=== PATIENT | male | born 1970 | race Caucasian/White ===

== ENCOUNTER 2019-07-13 16:27 | Emergency (ER) | payer SELFPAY ==
--- NOTE | 2019-07-13 16:39 | ER Document Report ---
ED Medical Screen (RME) - General Stated Complaint: LEG PAIN Time Seen by Provider: 07/13/19 16:32 Mode of Arrival: Ambulatory Information source: Patient Notes: Patient is a 49-year-old male presenting to the emergency department with chief complaint of swelling to his left lower extremity. Patient reports that about 6 weeks ago he was admitted to the hospital in [place] for bilateral leg cellulitis. He states that he came to [place] to live with his sister once he was discharged, his sister is concerned he may have a blood clot in his leg. 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 He denies history of diabetes but states he used to be on metformin. Patient is a poor historian Swelling noted to bilateral legs, unable to fully evaluate due to position in triage. I have greeted and performed a rapid initial assessment of this patient. A comprehensive ED assessment and evaluation of the patient, analysis of test results and completion of the medical decision making process will be conducted by additional ED providers. I have specifically instructed the patient or family members with the patient to immediately return to any nursing staff should anything change in the patient's condition or with their chief complaint. - Related Data Allergies/Adverse Reactions: cinnamon Allergy (Verified 07/13/19 16:32)
[2019-07-13 17:10] LABS: ABSOLUTE BASOPHILS # (AUTO) 0.1 10^3/uL (0.0-0.2); ABSOLUTE EOSINOPHILS # (AUTO) 0.4 10^3/uL (0.0-0.6); ABSOLUTE LYMPHOCYTES (AUTO) 2.9 10^3/uL (0.5-4.7); ABSOLUTE MONOCYTES (AUTO) 0.8 10^3/uL (0.1-1.4); ABSOLUTE NEUT (AUTO) 5.8 10^3/uL (1.7-8.2); BASOPHILS % (AUTO) 0.6 % (0-2); EOSINOPHILS % (AUTO) 4.5 % (0-6); HEMATOCRIT 52.4 % (37.9-51.0); HEMOGLOBIN 17.5 g/dL (13.5-17.0); LYMPHOCYTES % (AUTO) 29.2 % (13-45); MEAN CORPUSCULAR HEMOGLOBIN 29.7 pg (27.0-33.4); MEAN CORPUSCULAR HGB CONC 33.3 g/dL (32.0-36.0); MEAN CORPUSCULAR VOLUME 89 fl (80-97); MONOCYTES % (AUTO) 7.8 % (3-13); PLATELET COUNT 189 10^3/uL (150-450); RED BLOOD COUNT 5.88 10^6/uL (4.35-5.55); RED CELL DISTRIBUTION WIDTH 15.4 % (11.5-14.0); SEGMENTED NEUTROPHILS % (AUTO) 57.9 % (42-78); TOTAL CELLS COUNTED % (AUTO) 100 %; WHITE BLOOD COUNT 10.1 10^3/uL (4.0-10.5)
[2019-07-13] MEDS ORDERED: METOCLOPRAMIDE HCL INJ/PF 10 MG/2 ML SDV IV ONE (17:13)
[2019-07-13 17:22] LABS: ALBUMIN 3.8 g/dL (3.5-5.0); ALKALINE PHOSPHATASE 120 U/L (38-126); ANION GAP 5 (5-19); ASPARTATE AMINO TRANSFERASE 24 U/L (17-59); BILIRUBIN,DIRECT 0.3 mg/dL (0.0-0.4); BILIRUBIN,TOTAL 0.4 mg/dL (0.2-1.3); BLOOD UREA NITROGEN 14 mg/dL (7-20); CALCIUM 9.1 mg/dL (8.4-10.2); CARBON DIOXIDE 38 mmol/L (22-30); CHLORIDE 95 mmol/L (98-107); GLUCOSE 153 mg/dL (75-110); POTASSIUM 4.8 mmol/L (3.6-5.0); TOTAL PROTEIN 7.7 g/dL (6.3-8.2)
--- NOTE | 2019-07-13 17:33 | ER Document Report ---
ED Extremity Problem, Lower - General Chief Complaint: Leg Swelling Stated Complaint: LEG PAIN Time Seen by Provider: 07/13/19 16:32 Primary Care Provider: [facility] [Provider Group] - Follow up as needed [facility] [Provider Group] - Follow up as needed AVERY MAZARIEGOS MD [NO LOCAL MD] - Follow up in 3-5 days Mode of Arrival: Ambulatory Notes: Patient is a 49-year-old male who presents to the emergency department with a chief complaint of bilateral lower extremity swelling. Patient states that his sister was worried about him and sent him to the emergency department to get evaluated. Patient denies any pain to his bilateral calves. Patient states that he does have a little bit of pain noted to his left lower anterior ankle due to his MARÍA hose cutting into him. Patient reports a history of DVTs in the past. He was on Coumadin, but ran out of the medication. He adamantly denies any calf or leg pain. He states that, "my legs are actually better than when I was admitted for cellulitis in [place]." Patient states that he did have wounds to bilateral lower extremities, but does not have them anymore. Patient does have a history of psoriasis and hypertension. He has not been taking hypertensive medication for a long time. Patient does not have a primary care provider here in [place]. - Related Data Allergies/Adverse Reactions: cinnamon Allergy (Verified 07/13/19 16:32) Home Medications: Does not take medications he is prescribed Past Medical History - General Information source: Patient - Social History Smoking Status: Current Every Day Smoker Family History: Reviewed & Not Pertinent Patient has suicidal ideation: No Patient has homicidal ideation: No Review of Systems - Review of Systems Notes: REVIEW OF SYSTEMS: CONSTITUTIONAL : Denies recent illness. Denies recent unintentional weight loss. Denies fever, chills, or sweats. EENT: Denies eye, ear, throat, or mouth pain, discharge, or symptoms. Denies nasal or sinus congestion. CARDIOVASCULAR: Denies chest pain. RESPIRATORY: Denies shortness of breath, cough, congestion, difficulty breathing, or wheezing. GASTROINTESTINAL: Denies nausea, vomiting, and diarrhea. Denies abdominal pain. Denies constipation. GENITOURINARY: Denies difficulty urinating, burning, blood in urine, urgency or frequency. MUSCULOSKELETAL: Denies neck and back pain. See HPI. SKIN: Denies itchiness, or lesions. See HPI. HEMATOLOGIC : Denies easy bruising or bleeding. LYMPHATIC: Denies swollen, painful, enlarged glands. NEUROLOGICAL: Denies no numbness or tingling denies weakness. Denies headache. Denies altered mental status. Denies alteration in speech. PSYCHIATRIC: Denies stress, anxiety, alteration in sleep patterns, or depression. All other systems reviewed and negative. Physical Exam - Vital signs Vitals: Temp Pulse Resp BP Pulse Ox 97.5 F 83 22 H 155/104 H 96 07/13/19 16:32 07/13/19 16:32 07/13/19 16:32 07/13/19 16:32 07/13/19 16:32 - Notes Notes: PHYSICAL EXAMINATION: GENERAL: Appears well, healthy, well-nourished, no acute distress. HEAD: Normocephalic, atraumatic. EYES: PERRL, conjunctiva normal, all extraocular movements intact, sclera nonicteric ENT: Dry mucous membranes. NECK: Supple, no noticeable swelling, redness, rash. Normal range of motion. LUNGS: Equal breath sounds bilaterally and clear to auscultation. No wheezes rales or rhonchi. CARDIOVASCULAR: S1-S2, regular rate, regular rhythm. Radial pulses 2+, normal. ABDOMEN: Normoactive bowel sounds. Soft, nontender, no guarding, no rebound tenderness, and no masses palpated. EXTREMITIES: Normal strength and range of motion, no pitting or edema. No cyanosis. NEUROLOGICAL: Moves all extremities upon command. Strength 5/5 in all extremities. PSYCH: Normal mood, normal affect. SKIN: Warm, very dry. No rash, lesions, ulcerations noted. Normal skin turgor. Course - Re-evaluation Re-evalutation: 07/13/19 The patient adamantly denies any pain to his calves. Patient states he only has pain in the area where his MARÍA hose were cutting into his ankles on the left side. He points to the anterior aspect of his left leg. Patient has chronic venous stasis. Patient states that his legs actually look better than they did when he was admitted for cellulitis. His skin does not appear to have cellulitis. His legs are very dry. I discussed with him and his sister, who is his primary caregiver (spoke with her over the phone) to make sure that he uses Cetaphil lotion to help with his very dry skin and his psoriasis. The patient states that he has a special cream that he is at home, but states that he does not know what kind of cream it is. I advised him to continue to take that cream. Patient also has a very long toenails. He will be referred to podiatry to have them trimmed, as they are about 3 cm long each. Blood pressure has improved to 140/86. I suspect he was possibly anxious when he came in with initial blood pressure of 155/114. There is no leukocytosis noted. His hemoglobin is elevated, along with his hematocrit. I advised him to make sure he stays well-hydrated. He denies any nausea, vomiting, or diarrhea. Hemoglobin A1c is 7.1. His CO2 is 38. Patient states that he is an everyday smoker. Advised him to quit smoking. He is in agreement with these plans. He denies any shortness of breath or difficulty breathing. Follow-up precautions were given. Verbal discharge instructions were given to the patient. They verbalized understanding. They are stable for discharge. - Vital Signs Vital signs: Temp Pulse Resp BP Pulse Ox 97.8 F 68 18 140/86 H 96 07/13/19 18:12 07/13/19 18:12 07/13/19 18:12 07/13/19 18:12 07/13/19 18:12 - Laboratory Result Diagrams: 07/13/19 16:48 07/13/19 16:48 Laboratory results interpreted by me: 07/13/19 07/13/19 07/13/19 16:48 16:48 16:48 RBC 5.88 H Hgb 17.5 H Hct 52.4 H RDW 15.4 H Chloride 95 L Carbon Dioxide 38 H Glucose 153 H Hemoglobin A1c % 7.1 H Discharge - Discharge Clinical Impression: Swelling of lower extremity Condition: Stable Disposition: HOME, SELF-CARE Additional Instructions: You were seen today in the emergency department for leg swelling. Please continue wearing your compression stockings provided to you here in the emergency department. Follow-up with podiatry for your toenails. Please also apply for Medicaid and establish a primary care provider. If you do not qualify for Medicaid, please follow-up with 1 of the clinics below. Prescriptions: Vit E Acet/Gly/Dimeth/Water [Cetaphil Moisturizing Lotion] 473 ml TP BID #1 lotion Referrals: AVERY MAZARIEGOS MD [NO LOCAL MD] - Follow up in 3-5 days [facility] [Provider Group] - Follow up as needed [facility] [Provider Group] - Follow up as needed
[2019-07-13 18:14] VITALS: BP 140/86
== END 2019-07-13 18:14 | disposition home or self-care (01) ==
LOC: ER 16:27
DX: I87.8 Other specified disorders of veins (principal); M79.89 Other specified soft tissue disorders; L40.9 Psoriasis, unspecified; M25.572 Pain in left ankle and joints of left foot; I10 Essential (primary) hypertension; F17.200 Nicotine dependence, unspecified, uncomplicated; Z86.718 Personal history of other venous thrombosis and embolism; Z91.018 Allergy to other foods
CPT/HCPCS: 36415; 80053; 83036; 85025; 99284

== ENCOUNTER 2020-04-21 21:36 | Inpatient (IN) | payer SELFPAY ==
--- NOTE | 2020-04-21 22:09 | EKG REPORT ---
SEVERITY:- ABNORMAL ECG - SINUS RHYTHM PROBABLE LEFT ATRIAL ABNORMALITY LEFT POSTERIOR FASCICULAR BLOCK BORDERLINE T ABNORMALITIES, ANTERIOR LEADS : Confirmed by: Sol Lowe 21-Apr-2020 22:08:46
[2020-04-21 22:27] LABS: ABSOLUTE EOSINOPHILS # (AUTO) 0.2 10^3/uL (0.0-0.6); ABSOLUTE MONOCYTES (AUTO) 0.8 10^3/uL (0.1-1.4); ABSOLUTE NEUT (AUTO) 6.4 10^3/uL (1.7-8.2); BASOPHILS % (AUTO) 0.5 % (0-2); EOSINOPHILS % (AUTO) 2.2 % (0-6); HEMATOCRIT 54.2 % (37.9-51.0); HEMOGLOBIN 17.1 g/dL (13.5-17.0); LYMPHOCYTES % (AUTO) 20.8 % (13-45); MEAN CORPUSCULAR HEMOGLOBIN 27.5 pg (27.0-33.4); MEAN CORPUSCULAR HGB CONC 31.6 g/dL (32.0-36.0); MEAN CORPUSCULAR VOLUME 87 fl (80-97); MONOCYTES % (AUTO) 8.6 % (3-13); PLATELET COUNT 189 10^3/uL (150-450); RED BLOOD COUNT 6.21 10^6/uL (4.35-5.55); RED CELL DISTRIBUTION WIDTH 16.3 % (11.5-14.0); SEGMENTED NEUTROPHILS % (AUTO) 67.9 % (42-78); TOTAL CELLS COUNTED % (AUTO) 100 %; WHITE BLOOD COUNT 9.4 10^3/uL (4.0-10.5)
[2020-04-21 22:42] LABS: ALBUMIN 3.6 g/dL (3.5-5.0); ALKALINE PHOSPHATASE 130 U/L (38-126); ASPARTATE AMINO TRANSFERASE 30 U/L (17-59); BILIRUBIN,DIRECT 0.6 mg/dL (0.0-0.4); BILIRUBIN,TOTAL 1.1 mg/dL (0.2-1.3); BLOOD UREA NITROGEN 16 mg/dL (7-20); CALCIUM 8.8 mg/dL (8.4-10.2); CHLORIDE 88 mmol/L (98-107); CREATINE KINASE 50 U/L (55-170); GLUCOSE 92 mg/dL (75-110); POTASSIUM 4.4 mmol/L (3.6-5.0); TOTAL PROTEIN 7.2 g/dL (6.3-8.2)
[2020-04-21 22:51] LABS: CARBON DIOXIDE 42 mmol/L (22-30)
[2020-04-21 22:54] LABS: CREATINE KINASE MB 2.68 ng/mL (<4.55); NT PRO BNP 2990 pg/mL (<125)
[2020-04-21 22:57] LABS: ANION GAP 3 (5-19)
[2020-04-21 23:02] LABS: TROPONIN I < 0.012 ng/mL
--- NOTE | 2020-04-21 23:44 | RADIOLOGY REPORT (SQ) ---
CLINICAL HISTORY: shortness of breath COMPARISON: None. 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 Lungs are clear without consolidation, atelectasis, mass or edema. There is no pleural effusion. There is no pneumothorax. There are no acute osseous findings. IMPRESSION: Clear lungs.
--- NOTE | 2020-04-22 00:25 | ER Document Report ---
ED General - General Chief Complaint: Shortness Of Breath Stated Complaint: SWOLLEN LEGS, BURNING Time Seen by Provider: 04/22/20 00:23 - HPI Notes: 50-year-old male presents with leg swelling. Patient states that for the past 2 weeks he has had massive swelling in his lower legs and shortness of breath when he tries to do any sort of ambulation or activity. He states that he has had leg swelling before but he is unsure of the diagnosis. He states that he was actually fired from his job because he was unable to perform the job duties, he worked at a [employer]. He denies previous history of CHF. He has never been on a diuretic. He reports he has a history of high blood pressure, diabetes and MARYCRUZ, however he does not see doctors not currently on any medications. Is been sometime since he last saw a doctor. He denies chest pain. He denies any known Covid exposure stating that he does not interact with people. - Related Data Allergies/Adverse Reactions: cinnamon Allergy (Verified 07/13/19 16:32) Past Medical History - General Information source: Patient - Social History Smoking Status: Current Every Day Smoker Family History: Reviewed & Not Pertinent Patient has homicidal ideation: No Review of Systems - Review of Systems Constitutional: No symptoms reported EENT: No symptoms reported Cardiovascular: denies: Chest pain Respiratory: Short of breath Gastrointestinal: denies: Abdominal pain Genitourinary: No symptoms reported Male Genitourinary: No symptoms reported Musculoskeletal: Leg swelling Skin: No symptoms reported Hematologic/Lymphatic: No symptoms reported Physical Exam - Vital signs Vitals: Temp Pulse Resp BP Pulse Ox 97.4 F 94 20 149/101 H 85 L 04/21/20 21:42 04/21/20 21:42 04/21/20 21:42 04/21/20 21:42 04/21/20 21:42 - General General appearance: Alert In distress: None - HEENT Head: Normocephalic, Atraumatic Extraocular movements intact: Yes Pupils: PERRL - Respiratory Breath sounds: Other - Breath sounds are grossly symmetric, there is marked limitation due to his body habitus. He is able to speak in full sentences and has no increased work of breathing. - Cardiovascular Rhythm: Regular Heart sounds: Normal auscultation Normal capillary refill: Yes - Abdominal Inspection: Morbidly Obese Tenderness: Nontender - Genitourinary Notes: Superficial yeast infection present to pannus/suprapubic area - Extremities Notes: Lower extremities are markedly enlarged with pitting edema and thickened skin, there is some areas of crusting. Do not appreciate any large wounds. - Neurological Neuro grossly intact: Yes Cognition: Normal Orientation: AAOx4 - Psychological Associated symptoms: Normal affect - Skin Skin Temperature: Warm Course - Re-evaluation Re-evalutation: 50-year-old male with untreated diabetes, hypertension and MARYCRUZ here for leg swelling and MOHR x2 weeks. Patient was reportedly in the lobby for 3 hours and found to be 85% on room air, supplemental oxygen was applied which immediately improved his saturations. He is alert and nontoxic-appearing, able to speak in full sentences though full pulmonary exam is limited due to his body habitus. His legs are markedly edematous. He had a laboratory evaluation done prior to my evaluation. No leukocytosis. Increased hemoglobin/hematocrit, likely reflective of his MARYCRUZ status. Electrolytes okay. Elevated bicarb suggestive of chronic CO2 retention. Creatinine within normal limits. Troponin negative. Elevation of BNP, new per our records. Chest x-ray without consolidation. Patient was started on IV Lasix to begin the diuresis process, suspect he has new onset CHF, he is definitely a candidate for diastolic CHF based on his body habitus and comorbidities. Also ordered topical nystatin for his candidal infection of pannus/genital area. Patient was admitted to the hospital service for further evaluation and management, CTA chest was requested prior to being transported to the floor, ordered. - Vital Signs Vital signs: Temp Pulse Resp BP Pulse Ox 97.8 F 94 19 147/82 H 95 04/22/20 01:00 04/21/20 21:42 04/22/20 01:00 04/22/20 01:00 04/22/20 01:00 - Laboratory Results Result Diagrams: 04/21/20 22:10 04/21/20 22:10 Laboratory Results Interpreted: 04/21/20 04/21/20 04/21/20 22:10 22:10 22:10 RBC 6.21 H Hgb 17.1 H Hct 54.2 H MCHC 31.6 L RDW 16.3 H Sodium 132.9 L Chloride 88 L Carbon Dioxide 42 H* Anion Gap 3 L Hemoglobin A1c % Direct Bilirubin 0.6 H Alkaline Phosphatase 130 H Creatine Kinase 50 L NT-Pro-B Natriuret Pep 2990 H 04/21/20 22:10 RBC Hgb Hct MCHC RDW Sodium Chloride Carbon Dioxide Anion Gap Hemoglobin A1c % 6.9 H Direct Bilirubin Alkaline Phosphatase Creatine Kinase NT-Pro-B Natriuret Pep Critical Laboratory Results Reviewed: No Critical Results - Radiology Results Critical Radiology Results Reviewed: No Critical Results - EKG Interpretation by Me Additional EKG results interpreted by me: EKG is interpreted by me. Sinus rhythm, rate 91. Narrow QRS, QTC within normal limits. Nonspecific T wave abnormalities. No STEMI. Discharge - Discharge Clinical Impression: New onset of congestive heart failure, Shonda infection, Morbid obesity Disposition: ADMITTED OBSERVATION Admitting Provider: Lucinda (Hospitalist) Unit Admitted: Telemetry
[2020-04-22] MEDS ORDERED: FUROSEMIDE INJ/PF 20 MG/2 ML SDV IV ONE (00:34)
[2020-04-22] MEDS ORDERED: NYSTATIN TOPICAL POWDER 15 GM TP ONE (00:35)
[2020-04-22 02:04] LABS: APPEARANCE,URINE SLIGHTLY-CLOUDY; BILIRUBIN,URINE NEGATIVE (NEGATIVE); COLOR,URINE STRAW; GLUCOSE, URINE NEGATIVE (NEGATIVE); KETONES,URINE NEGATIVE (NEGATIVE); LEUKOCYTE ESTERASE,URINE TRACE (NEGATIVE); NITRITE,URINE NEGATIVE (NEGATIVE); PROTEIN,URINE NEGATIVE (NEGATIVE); URINE SPECIFIC GRAVITY 1.004; UROBILINOGEN,URINE NEGATIVE mg/dL (<2.0)
[2020-04-22] MEDS ORDERED: ONDANSETRON 4 MG TAB.RAPDIS PO PRN (02:20)
[2020-04-22] MEDS ORDERED: ONDANSETRON HCL INJ/PF 4 MG/2 ML SDV IV PRN (02:20)
[2020-04-22] MEDS ORDERED: LEVALBUTEROL HCL NEB 1.25 MG/3 ML AMPUL NEB PRN (02:20)
--- NOTE | 2020-04-22 02:48 | PDOC H&P ---
History of Present Illness Admission Date/PCP: 04/22/20 01:10 History of Present Illness: MOSES DAILY is a 50 year old male past medical history significant for HTN, IBS with diarrhea, untreated MARYCRUZ, T2DM, right-sided CVA, tobacco abuse and dependency, lower extremity DVT who presents to the ED with a 2-week history of progressive shortness of breath/MOHR/bilateral lower extremity edema which he states is significantly worse than it has been in the past. In fact, patient states it has been so severe that he was fired from his job at a [employer] because he was essentially unable to ambulate. Patient states he has had a right-sided stroke in the past but denies any longstanding deficits from this. He also states he has had a DVT in the past and his physician had put him on w arfarin though he is extremely unclear about how or why he was taken off of the warfarin. Labs in ED showed elevated BNP up to 2990, CO2 up to 42, troponin negative. I discussed with ED that we should order a CTPA to rule out PE given the patient's history of inconsistent anticoagulation and DVT. We also get an echocardiogram to rule out new onset CHF. IV Lasix ordered for diuresis. Past Medical History Cardiac Medical History: Reports: Hypertension Pulmonary Medical History: Reports: Sleep Apnea Neurological Medical History: Reports: Ischemic CVA Endocrine Medical History: Reports: Diabetes Mellitus Type 2 GI Medical History: Reports: Other - Irritable bowel disease diarrhea Psychiatric Medical History: Reports: Tobacco Dependency Past Surgical History Past Surgical History: Reports: None Social History Information Source: Patient, Emergency Med Personnel Lives with: Alone Smoking Status: Current Every Day Smoker Frequency of Alcohol Use: None Hx Recreational Drug Use: No Hx Prescription Drug Abuse: No - Advance Directive Resuscitation Status: Full Code Surrogate healthcare decision maker:: Admitting diagnosis: Acute hypoxemic respiratory failure All aspects of code status discussed with patient/POA including cardioversion, chest compressions, and intubation and the patient/POA indicated they wish to be full code MPOA is designated as: SisterRebecca Time spent: Greater than 16 minutes Family History Family History: Reviewed & Not Pertinent, CAD Parental Family History Reviewed: Yes Children Family History Reviewed: Yes Sibling(s) Family History Reviewed.: Yes Medication/Allergy Home Medications: Vit E Acet/Gly/Dimeth/Water [Cetaphil Moisturizing Lotion] 473 ml TP BID #1 lotion 07/13/19 Allergies/Adverse Reactions: cinnamon Allergy (Verified 07/13/19 16:32) Review of Systems All systems: reviewed and no additional remarkable complaints except as stated - Per HPI otherwise negative Physical Exam Vital Signs: Temp Pulse Resp BP Pulse Ox 97.8 F 94 19 147/82 H 95 04/22/20 01:00 04/21/20 21:42 04/22/20 01:00 04/22/20 01:00 04/22/20 01:00 Intake & Output 04/20/20 04/21/20 04/22/20 06:59 06:59 06:59 Weight 185.7 kg Exam: General appearance: PRESENT: no acute distress, chronically ill-appearing morbidly obese white male with BMI 60.5 Head exam: PRESENT: atraumatic, normocephalic Eye exam: PRESENT: conjunctiva pink. ABSENT: scleral icterus Mouth exam: PRESENT: moist Respiratory exam: PRESENT: Scant wheezing in upper lung earl, severely limited exam due to body habitus ABSENT: rales, rhonchi Cardiovascular exam: PRESENT: RRR. ABSENT: diastolic murmur, rubs, systolic murmur GI/Abdominal exam: PRESENT: normal bowel sounds, soft. ABSENT: distended, guarding, mass, organolmegaly, rebound, tenderness Neurological exam: PRESENT: alert, awake, oriented to person, oriented to place, oriented to time, oriented to situation Psychiatric exam: PRESENT: appropriate affect, normal mood Skin exam: PRESENT: dry, intact, warm; severe +3 BLE pitting edema with chronic stasis dermatitis Results Laboratory Results: 04/21/20 22:10 04/21/20 22:10 04/21/20 04/21/20 04/22/20 22:10 22:10 01:45 WBC 9.4 RBC 6.21 H Hgb 17.1 H Hct 54.2 H MCV 87 MCH 27.5 MCHC 31.6 L RDW 16.3 H Plt Count 189 Seg Neutrophils % 67.9 Sodium 132.9 L Potassium 4.4 Chloride 88 L Carbon Dioxide 42 H* Anion Gap 3 L BUN 16 Creatinine 1.14 Est GFR ( Amer) > 60 Glucose 92 Calcium 8.8 Total Bilirubin 1.1 AST 30 Alkaline Phosphatase 130 H Total Protein 7.2 Albumin 3.6 Urine Color STRAW Urine Appearance SLIGHTLY-CLOUDY Urine pH 5.0 Ur Specific [place] 1.004 Urine Protein NEGATIVE Urine Glucose (UA) NEGATIVE Urine Ketones NEGATIVE Urine Blood MODERATE H Urine Nitrite NEGATIVE Ur Leukocyte Esterase TRACE H Urine WBC (Auto) 1 Urine RBC (Auto) 0 04/21/20 04/21/20 22:10 22:10 Creatine Kinase 50 L CK-MB (CK-2) 2.68 Troponin I < 0.012 NT-Pro-B Natriuret Pep 2990 H Impressions: Chest X-Ray 04/21/20 22:18 IMPRESSION: Clear lungs. Assessment and Plan - Diagnosis (1) New onset of congestive heart failure Is this a current diagnosis for this admission?: Yes Plan: -Suspected acute diastolic chf exacerbation -diuresis with IV Lasix -fluid restriction -I/O monitoring -Cardiology outpt FU needed -TTE ordered -started appropriate goal directed cardiac meds -AICD consideration if EF falls to 35% or below Rule out PE as cause of acute heart failure due to history of DVTs not on anticoagulation CTPA pending PVL BLE pending (2) Acute hypoxemic respiratory failure Is this a current diagnosis for this admission?: Yes Plan: Due to CHF as above Submental oxygen to maintain saturation 92% or above Suspect underlying OHS, require cautious use of supplemental oxygen as this can drive CO2 higher and cause somnolence and confusion Diuresis (3) Chronic venous stasis dermatitis of both lower extremities Is this a current diagnosis for this admission?: Yes Plan: No evidence of infection, only moderate erythema bilateral legs, denies fevers or other systemic symptoms of infection Nystatin powder for candidal skin infection (4) History of DVT (deep vein thrombosis) Is this a current diagnosis for this admission?: Yes Plan: Was previously on warfarin, unclear why patient was taken off of this or if he stopped it himself CTPA in PVL lower extremities as above (5) T2DM (type 2 diabetes mellitus) Qualifiers: Diabetes mellitus group home insulin use: without predatory animal exterminator use Diabetes mellitus complication status: with hyperglycemia Qualified Code(s): E11.65 - Type 2 diabetes mellitus with hyperglycemia Is this a current diagnosis for this admission?: Yes Plan: T2DM -accucheks, sliding scale insulin -long acting insulin indicated for HgA1C of 10 or greater -diet counseling -outpt FU with PCP (6) HTN (hypertension) Qualifiers: Hypertension type: essential hypertension Qualified Code(s): I10 - Essenti al (primary) hypertension Is this a current diagnosis for this admission?: Yes Plan: Previously on oral medications but cannot remember the use, states he cannot afford his medications Lasix Add antihypertensives as needed to reach goal blood pressure (7) Morbid obesity with BMI of 60.0-69.9, adult Is this a current diagnosis for this admission?: Yes Plan: Counseled on weight loss (8) History of CVA (cerebrovascular accident) Is this a current diagnosis for this admission?: Yes (9) IBS (irritable bowel syndrome) Qualifiers: Irritable bowel syndrome type: with diarrhea Qualified Code(s): K58.0 - Irritable bowel syndrome with diarrhea Is this a current diagnosis for this admission?: Yes Plan: Not currently having diarrhea (10) Cutaneous candidiasis Is this a current diagnosis for this admission?: Yes Plan: Nystatin powder (11) Tobacco dependence with current use Is this a current diagnosis for this admission?: Yes Plan: Counseled on quitting - Time Time Spent with patient: 35 or more minutes Smoking Cessation Education: 3 to 10 minutes Medications reviewed and adjusted accordingly: Yes Anticipated Discharge Disposition: Home, Self Care Anticipated Discharge Timeframe: within 48 hours - Inpatient Certification Based on my medical assessment, after consideration of the patient's comorbidities, presenting symptoms, or acuity I expect that the services needed warrant INPATIENT care.: Yes I certify that my determination is in accordance with my understanding of Medicare's requirements for reasonable and necessary INPATIENT services [42 CFR 412.3e].: Yes Medical Necessity: Significant Comorbidiites Make Outpatient Treatment Too Risky, Need Close Monitoring Due to Risk of Patient Decompensation, Need For Co ntinuous Telemetry Monitoring, Need for Nebulizer Therapy and Monitoring of Response, Risk of Complication if Not Cared For in Hospital, Risk of Diagnosis Which Will Require Inpatient Eval/Care/Monitoring
--- NOTE | 2020-04-22 04:44 | RADIOLOGY REPORT (SQ) ---
EXAM DESCRIPTION: CT CHEST ANGIOGRAPHY WITH IV CONTRAST COMPLETED DATE/TME: 04/22/2020 03:38 CLINICAL HISTORY: 50 years, Male, SOB, hypoxia, eval PE COMPARISON: None. TECHNIQUE: [id number] Images stored on PACS. All CT scanners at this facility use dose modulation, iterative reconstruction, and/or weight based dosing when appropriate to reduce radiation dose to as low as reasonably achievable (ALARA). Axial CTA images of the chest with coronal and sagittal MIPS [facility]: Dose Right [facility]: CareDose [facility]: Dose Right [facility]: Teradose 4D [facility]: [employer] LIMITATIONS: None. FINDINGS: Contrast bolus is somewhat suboptimal however no discrete filling defect to suggest pulmonary embolus. Negative for thoracic aortic aneurysm or dissection. Heart size is normal. No mediastinal or hilar adenopathy. Limited evaluation of the upper abdomen shows a small volume of ascites. Fatty infiltrative change to the liver. Small right pleural effusion with adjacent consolidative change. No pneumothorax. IMPRESSION: Negative for pulmonary embolus. Small right pleural effusion. Adjacent consolidation. Ascites in the upper abdomen. TECHNICAL DOCUMENTATION: Quality ID # 436: Final reports with documentation of one or more dose reduction techniques (e.g., Automated exposure control, adjustment of the mA and/or kV according to patient size, use of iterative reconstruction technique) copyright 2011 [employer]- All Rights Reserved
[2020-04-22 06:08] LABS: ABSOLUTE EOSINOPHILS # (AUTO) 0.3 10^3/uL (0.0-0.6); ABSOLUTE LYMPHOCYTES (AUTO) 1.8 10^3/uL (0.5-4.7); ABSOLUTE MONOCYTES (AUTO) 0.9 10^3/uL (0.1-1.4); ABSOLUTE NEUT (AUTO) 6.1 10^3/uL (1.7-8.2); BASOPHILS % (AUTO) 0.5 % (0-2); EOSINOPHILS % (AUTO) 2.8 % (0-6); HEMATOCRIT 50.8 % (37.9-51.0); HEMOGLOBIN 16.1 g/dL (13.5-17.0); LYMPHOCYTES % (AUTO) 19.4 % (13-45); MEAN CORPUSCULAR HEMOGLOBIN 27.8 pg (27.0-33.4); MEAN CORPUSCULAR HGB CONC 31.7 g/dL (32.0-36.0); MEAN CORPUSCULAR VOLUME 88 fl (80-97); MONOCYTES % (AUTO) 9.9 % (3-13); PLATELET COUNT 175 10^3/uL (150-450); RED BLOOD COUNT 5.79 10^6/uL (4.35-5.55); RED CELL DISTRIBUTION WIDTH 16.3 % (11.5-14.0); SEGMENTED NEUTROPHILS % (AUTO) 67.4 % (42-78); TOTAL CELLS COUNTED % (AUTO) 100 %; WHITE BLOOD COUNT 9.1 10^3/uL (4.0-10.5)
[2020-04-22 06:37] LABS: BLOOD UREA NITROGEN 15 mg/dL (7-20); CALCIUM 8.4 mg/dL (8.4-10.2); GLUCOSE 108 mg/dL (75-110); PHOSPHORUS 4.6 mg/dL (2.5-4.5); POTASSIUM 5.1 mmol/L (3.6-5.0)
[2020-04-22 06:42] LABS: ANION GAP 5 (5-19); CARBON DIOXIDE 38 mmol/L (22-30); CHLORIDE 92 mmol/L (98-107)
[2020-04-22] MEDS: INSULIN LISPRO 100 UNIT/ML 3 ML VIAL SUBCUT SCH ×4 (07:22→22:19)
[2020-04-22] MEDS: FUROSEMIDE INJ/PF 40 MG/4 ML SDV IV SCH ×2 (09:26→22:19)
[2020-04-22] MEDS: ENOXAPARIN SODIUM INJ 40 MG/0.4 ML DISP.SYRIN SUBCUT SCH (09:28)
[2020-04-22 11:54] LABS: ARTERIAL BLOOD BASE EXCESS 10.7 mmol/L; ARTERIAL BLOOD H2CO3 2.27 mmol/L (1.05-1.35); ARTERIAL BLOOD HCO3 40.6 mmol/L (20-24); ARTERIAL BLOOD O2 SATURATION 91.6 % (94-98); ARTERIAL BLOOD PH 7.35 (7.35-7.45); ARTERIAL BLOOD PO2 67.1 mmHg (80-100); ARTERIAL BLOOD TOTAL CO2 42.9 mmol/L (23-27)
[2020-04-22 12:08] LABS: URINE AMPHETAMINES SCREEN NEGATIVE; URINE BARBITURATES SCREEN NEGATIVE; URINE BENZODIAZEPINES SCREEN NEGATIVE; URINE COCAINE SCREEN NEGATIVE; URINE MARIJUANA (THC) SCREEN NEGATIVE; URINE METHADONE SCREEN NEGATIVE; URINE PHENCYCLIDINE SCREEN NEGATIVE
[2020-04-22 12:14] LABS: ARTERIAL BLOOD FIO2 10L
[2020-04-22 12:17] LABS: ARTERIAL BLOOD PCO2 75.4 mmHg (35-45)
[2020-04-22] MEDS ORDERED: ALBUTEROL SULFATE 0.083% NEB 2.5 MG/3 ML AMPUL NEB ONE (12:23)
[2020-04-22] MEDS: NYSTATIN TOPICAL POWDER 15 GM TP SCH ×2 (16:23→18:15)
--- NOTE | 2020-04-22 19:27 | Progress Note ---
Provider Note Provider Note: Patient seen on morning rounds. BiPAP on. Nursing expresses concerns that patient drowsy. ABG ordered: pCO2 75.4, pO2 67.1. HCO3 40.6, O2 sat 91.6. On chemistries CO2 elevated at 42. Notable BMI 59.7. Without underlying COPD or asthma. CXR with clear lungs. CTPA witohut pulmonary embolism though notable for small right pleural effusion. With small amount of ascites noted in abdomen. On exam noted wheezing upper lung earl, though exam is limited due to habitus. There is 3+ bilateral pitting edema with chornic stasis dermatitis. Echo as per Dr. Valle, who was unable to leave report due to computer difficulties, Normal EF, dilated RV with moderatly decreased systolic function. No significant valvular disease. Continue with IV diuretics, and order strict I&Os. Instructed not to over oxygenate pt as this may cause increased CO2 and cause somnolence and confusion. Pt will need outpatient cardiology f/u. Will need outpatient sleep study/pulm. Outpatient wound care f/u additionally.
[2020-04-23 05:28] LABS: ABSOLUTE EOSINOPHILS # (AUTO) 0.1 10^3/uL (0.0-0.6); ABSOLUTE LYMPHOCYTES (AUTO) 1.1 10^3/uL (0.5-4.7); ABSOLUTE MONOCYTES (AUTO) 0.7 10^3/uL (0.1-1.4); ABSOLUTE NEUT (AUTO) 4.7 10^3/uL (1.7-8.2); BASOPHILS % (AUTO) 0.7 % (0-2); EOSINOPHILS % (AUTO) 1.6 % (0-6); HEMATOCRIT 50.6 % (37.9-51.0); HEMOGLOBIN 15.6 g/dL (13.5-17.0); LYMPHOCYTES % (AUTO) 16.4 % (13-45); MEAN CORPUSCULAR HEMOGLOBIN 27.4 pg (27.0-33.4); MEAN CORPUSCULAR HGB CONC 30.9 g/dL (32.0-36.0); MEAN CORPUSCULAR VOLUME 89 fl (80-97); MONOCYTES % (AUTO) 10.8 % (3-13); PLATELET COUNT 146 10^3/uL (150-450); RED CELL DISTRIBUTION WIDTH 16.5 % (11.5-14.0); SEGMENTED NEUTROPHILS % (AUTO) 70.5 % (42-78); TOTAL CELLS COUNTED % (AUTO) 100 %; WHITE BLOOD COUNT 6.6 10^3/uL (4.0-10.5)
[2020-04-23 07:18] LABS: BLOOD UREA NITROGEN 12 mg/dL (7-20); CALCIUM 8.5 mg/dL (8.4-10.2); CHLORIDE 90 mmol/L (98-107); GLUCOSE 73 mg/dL (75-110); PHOSPHORUS 4.7 mg/dL (2.5-4.5); POTASSIUM 4.7 mmol/L (3.6-5.0)
[2020-04-23 07:31] LABS: CARBON DIOXIDE 47 mmol/L (22-30)
[2020-04-23 07:41] LABS: ANION GAP 3 (5-19)
[2020-04-23] MEDS ORDERED: INFLUENZA QUAD (6MOS+) 2020-21 VAC 0.5 ML SYR IM ONE (08:00)
[2020-04-23] MEDS: INSULIN LISPRO 100 UNIT/ML 3 ML VIAL SUBCUT SCH ×4 (08:01→21:27)
[2020-04-23] MEDS: FUROSEMIDE INJ/PF 40 MG/4 ML SDV IV SCH (10:32)
[2020-04-23] MEDS: ENOXAPARIN SODIUM INJ 40 MG/0.4 ML DISP.SYRIN SUBCUT SCH (10:32)
[2020-04-23] MEDS: NYSTATIN TOPICAL POWDER 15 GM TP SCH ×2 (10:37→17:59)
[2020-04-23 11:40] LABS: ARTERIAL BLOOD BASE EXCESS 17.4 mmol/L; ARTERIAL BLOOD H2CO3 4.95 mmol/L (1.05-1.35); ARTERIAL BLOOD HCO3 55.8 mmol/L (20-24); ARTERIAL BLOOD TOTAL CO2 60.8 mmol/L (23-27)
[2020-04-23 12:01] LABS: ARTERIAL BLOOD FIO2 70%
[2020-04-23 12:02] LABS: ARTERIAL BLOOD PCO2 164.5 mmHg (35-45); ARTERIAL BLOOD PH 7.15 (7.35-7.45)
--- NOTE | 2020-04-23 12:16 | Progress Note ---
Provider Note Provider Note: 10:00: Patient seen on morning rounds. He is somnolent and minimally responsive to stimuli. Discussed with respiratory, increased bipap settings to 16 and have ordered a repeat ABG. I&Os are not recorded, will place Hart catheter with strict I&Os. Respiratory and myself are monitoring closely. 12:14: Repeat ABG with ph: 7.1, pCO2 160. Patient remains somnulent. I have contacted Dr. Dockery with ICU team. Agrees to see patient. Respiratory contacted, will again adjust rate. Current rate 21.
[2020-04-23] MEDS ORDERED: GLUCAGON,HUMAN RECOMB 1 MG INJ SUBCUT PRN (13:51)
[2020-04-23] MEDS ORDERED: DEXTROSE 40% GEL 15 GM TUBE PO PRN ×2 (13:51)
[2020-04-23] MEDS ORDERED: DEXTROSE 50%-WATER 25 GM/50 ML DISP.SYRIN IV PRN ×2 (13:51)
[2020-04-23] MEDS ORDERED: ONDANSETRON 4 MG TAB.RAPDIS PO PRN (14:01)
--- NOTE | 2020-04-23 14:16 | CRITICAL CARE ADMISSION REPORT ---
HPI Date:: 04/23/20 Time:: 13:00 Reason for ICU Reason:: High risk of intubation. Admission Date/Time & PCP: Admission Date/Time: 04/22/20 01:10 Primary Care Provider: HPI: MOSES DAILY is a 50 year old male past medical history significant for HTN, IBS with diarrhea, untreated MARYCRUZ, T2DM, right-sided CVA, tobacco abuse and dependency, lower extremity DVT who presents to the ED with a 2-week history of progressive shortness of breath/MOHR/bilateral lower extremity edema which he states is significantly worse than it has been in the past. In fact, patient states it has been so severe that he was fired from his job at a [employer] shop because he was essentially unable to ambulate. Patient states he has had a ri ght-sided stroke in the past but denies any longstanding deficits from this. He also states he has had a DVT in the past and his physician had put him on warfarin though he is extremely unclear about how or why he was taken off of the warfarin. Labs in ED showed elevated BNP up to 2990, CO2 up to 42, troponin negative. I discussed with ED that we should order a CTPA to rule out PE given the patient's history of inconsistent anticoagulation and DVT. We also get an echocardiogram to rule out new onset CHF. IV Lasix ordered for diuresis. This pt is a 50 year old man with R sided CHF, MARYCRUZ, hypoventilation syndrome who has been up on the 4th floor and is in danger of intubation. He has been getting somnolent but is responsive to voice and appropriate although sleepy. He has a pH of 7.15 but a pCO2 of 164. Some of this is chronic and some undoubtably acute. He has been getting diuresis and we have increased his IPAP as he is still protecting his airway. We will repeat his ABG in 1-2 hours to see if their is any improvement. If not he well need intubation. History obtained from:: Pt, records and hospitalist. - Diagnosis/Plan (1) Acute right-sided CHF (congestive heart failure) Is this a current diagnosis for this admission?: Yes Plan: He is on q12H lasix but still has much lower extremity edema to remove. (2) Hypoventilation Is this a current diagnosis for this admission?: Yes Plan: This is a consequence of his size and MARYCRUZ. Continue bipap perhaps intubation. (3) MARYCRUZ (obstructive sleep apnea) Is this a current diagnosis for this admission?: Yes Plan: He will most likely need CPAP as out pt. (4) Morbid obesity with BMI of 60.0-69.9, adult Is this a current diagnosis for this admission?: Yes Plan: This is causing most of his problems. His BMI will likely decrease with fluid loss. (5) T2DM (type 2 diabetes mellitus) Qualifiers: Diabetes mellitus care home insulin use: without care home use Diabetes mellitus complication status: with hyperglycemia Qualified Code(s): E11.65 - Type 2 diabetes mellitus with hyperglycemia Is this a current diagnosis for this admission?: Yes Plan: Well controlled. Plan Summary: Try to make bipap adjustments as he is still arousable before intubation. Past Medical History Cardiac Medical History: Reports: Hypertension Pulmonary Medical History: Reports: Pneumonia, Sleep Apnea Neurological Medical History: Reports: Ischemic CVA Endocrine Medical History: Reports: Diabetes Mellitus Type 2 GI Medical History: Reports: Other - Irritable bowel disease diarrhea Psychiatric Medical History: Reports: Depression, Tobacco Dependency Past Surgical History Past Surgical History: Reports: None Social/Family History - Social History Lives with: Alone Smoking Status: Current Every Day Smoker Frequency of Alcohol Use: None Hx Recreational Drug Use: No Hx Prescription Drug Abuse: No - Medication/Allergies Home Medications: Unobtainable 04/22/20 Allergies/Adverse Reactions: cinnamon Allergy (Verified 07/13/19 16:32) Review of Systems Constitutional: ABSENT: chills, fever(s), headache(s), weight gain, weight loss Eyes: ABSENT: visual disturbances Ears: ABSENT: hearing changes Cardiovascular: ABSENT: chest pain, dyspnea on exertion, edema, orthropnea, palpitations Respiratory: ABSENT: cough, hemoptysis Gastrointestinal: ABSENT: abdominal pain, constipation, diarrhea, hematemesis, hematochezia, nausea, vomiting Genitourinary: ABSENT: dysuria, hematuria Musculoskeletal: ABSENT: joint swelling Integumentary: ABSENT: rash, wounds Neurological: ABSENT: abnormal gait, abnormal speech, confusion, dizziness, focal weakness, syncope Physical Exam Vital Signs: Temp Pulse Resp BP Pulse Ox 97.9 F 93 21 H 141/72 H 92 04/23/20 10:00 04/23/20 07:00 04/23/20 10:51 04/23/20 00:11 04/23/20 10:51 Intake & Output 04/22/20 04/23/20 04/24/20 06:59 06:59 06:59 Intake Total 0 Output Total 1900 Balance 0 -1900 Weight 179.9 kg 178.2 kg Weight/Height Weight 178.2 kg Height 5 ft 8 in General appearance: PRESENT: no acute distress, cooperative, morbidly obese Head exam: PRESENT: atraumatic, normocephalic Eye exam: PRESENT: conjunctiva pink, EOMI, PERRLA. ABSENT: scleral icterus Ear exam: PRESENT: normal external ear exam Mouth exam: PRESENT: moist, tongue midline Respiratory exam: PRESENT: clear to auscultation esther, decreased breath sounds. ABSENT: rales, rhonchi, wheezes Cardiovascular exam: PRESENT: RRR. ABSENT: diastolic murmur, rubs, systolic murmur GI/Abdominal exam: PRESENT: normal bowel sounds, soft. ABSENT: distended, guarding, mass, organolmegaly, rebound, tenderness Rectal exam: PRESENT: deferred Gentrourinary exam: PRESENT: indwelling catheter Extremities exam: PRESENT: full ROM, pedal edema, +2 edema. ABSENT: calf tenderness, clubbing Musculoskeletal exam: PRESENT: tenderness Neurological exam: PRESENT: alert, altered, awake, oriented to person, oriented to place, CN II-XII grossly intact Tubes/Lines: PRESENT: Other - Bipap. Laboratory/Radiographs Laboratory Results: 04/23/20 04:33 04/23/20 06:33 04/23/20 04/23/20 04/23/20 04:33 04:33 04:33 WBC 6.6 RBC 5.70 H Hgb 15.6 Hct 50.6 MCV 89 MCH 27.4 MCHC 30.9 L RDW 16.5 H Plt Count 146 L Seg Neutrophils % 70.5 Carbonic Acid HCO3/H2CO3 Ratio ABG pH ABG pCO2 ABG pO2 ABG HCO3 ABG O2 Saturation ABG Base Excess FiO2 Sodium Cancelled Potassium Cancelled Chloride Cancelled Carbon Dioxide Cancelled Anion Gap Cancelled BUN Cancelled Creatinine Cancelled Est GFR ( Amer) Cancelled Est GFR (Non-Af Amer) Cancelled Glucose Cancelled Calcium Cancelled Phosphorus Cancelled TSH Cancelled 04/23/20 04/23/20 04/23/20 06:33 06:33 11:20 WBC RBC Hgb Hct MCV MCH MCHC RDW Plt Count Seg Neutrophils % Carbonic Acid 4.95 H HCO3/H2CO3 Ratio 11:1 ABG pH 7.15 L* ABG pCO2 164.5 H* ABG pO2 97.0 ABG HCO3 55.8 H ABG O2 Saturation 94.0 ABG Base Excess 17.4 FiO2 70% Sodium 140.2 Potassium 4.7 Chloride 90 L Carbon Dioxide 47 H* Anion Gap 3 L BUN 12 Creatinine 0.81 Est GFR ( Amer) > 60 Est GFR (Non-Af Amer) Glucose 73 L Calcium 8.5 Phosphorus 4.7 H TSH 1.05 04/21/20 04/21/20 22:10 22:10 Creatine Kinase 50 L CK-MB (CK-2) 2.68 Troponin I < 0.012 NT-Pro-B Natriuret Pep 2990 H Impressions: Chest X-Ray 04/21/20 22:18 IMPRESSION: Clear lungs. Chest/Abdomen CTA 04/22/20 02:07 IMPRESSION: Negative for pulmonary embolus. Small right pleural effusion. Adjacent consolidation. Ascites in the upper abdomen. TECHNICAL DOCUMENTATION: Quality ID # 436: Final reports with documentation of one or more dose reduction techniques (e.g., Automated exposure control, adjustment of the mA and/or kV according to patient size, use of iterative reconstruction technique) copyright 2011 [employer]- All Rights Reserved All labs, radiographs, diagnostic studies and EKGs were personally reviewed: Yes In addition, reports of radiographic and diagnostic studies were read: Yes Critical Time Critical Time (minutes): 40 -: The care of a critically ill patient is dynamic. This note represents a static moment in the admission process. Orders and treatments may be given simultaneously and urgently, and time is not business representative of the treatment process. This patient requires Critical Care secondary to life threatening organ or limb dysfunction. Without Critical Care services, the patient is at risk for increased mortality and morbidity.
[2020-04-23 14:52] LABS: ARTERIAL BLOOD BASE EXCESS 21.1 mmol/L; ARTERIAL BLOOD H2CO3 4.39 mmol/L (1.05-1.35); ARTERIAL BLOOD HCO3 58.4 mmol/L (20-24); ARTERIAL BLOOD PH 7.22 (7.35-7.45); ARTERIAL BLOOD PO2 81.2 mmHg (80-100); ARTERIAL BLOOD TOTAL CO2 62.9 mmol/L (23-27)
[2020-04-23 14:53] LABS: ARTERIAL BLOOD FIO2 65%
[2020-04-23] MEDS ORDERED: ETOMIDATE INJ/PF 20 MG/10 ML SDV IV ONE (16:20)
[2020-04-23] MEDS ORDERED: PROPOFOL INJ 200 MG/20 ML VIAL IV ONE (16:24)
[2020-04-23] MEDS ORDERED: PROPOFOL 1,000 MG/100 ML INFUS..BTL IV ONE (16:32)
--- NOTE | 2020-04-23 16:35 | PDOC PROGRESS REPORT ---
Subjective Date:: 04/23/20 Subjective:: 10:00: Patient seen on morning rounds. He is somnolent and minimally responsive to stimuli. Discussed with respiratory. Bipap settings increased and have ordered a repeat ABG. Unfortunately I&Os are not recorded, will place Hart catheter with strict I&Os. Respiratory, nursing, and myself are monitoring closely. 12:14: Repeat ABG with ph: 7.1, pCO2 160. HCO3 55.8, O2 sat 94%. Patient remains somnolent and minimally responsive. I have contacted Dr. Dockery with ICU team. Who has agreed to see patient. Respiratory contacted for evaluation as well. Patient seen and evaluated by Dr. Dockery. Patient at danger for intubation. Has agreed to transition patient care over to his service. Reason For Visit: NEW ONSET OF CONGESTIVE HEART FAILURE, Physical Exam Vital Signs: Temp Pulse Resp BP Pulse Ox 97.9 F 93 19 150/87 H 98 04/23/20 10:00 04/23/20 07:00 04/23/20 15:46 04/23/20 15:46 04/23/20 15:46 Intake & Output 04/22/20 04/23/20 04/24/20 06:59 06:59 06:59 Intake Total 0 Output Total 1900 Balance 0 -1900 Weight 179.9 kg 178.2 kg General appearance: PRESENT: morbidly obese, other - Sonulent on exam, though arousible for only a few seconds. Head exam: PRESENT: atraumatic, normocephalic Respiratory exam: PRESENT: clear to auscultation esther, decreased breath sounds, other - BIPAP in place. Cardiovascular exam: PRESENT: RRR GI/Abdominal exam: PRESENT: normal bowel sounds, soft, other - Protuberant abdomen Gentrourinary exam: PRESENT: indwelling catheter Extremities exam: PRESENT: +2 edema Neurological exam: PRESENT: altered, other - Altered, somnulent, awakes to stimulation but only breifly, does not answer questions appropriatly. Skin exam: PRESENT: other - Chronic changes to skin bilateral lower extremities, with darkening of skin bilaterally. Noteable wheeping wound posterior aspect both lower legs. Results Laboratory Results: 04/23/20 04:33 04/23/20 06:33 01/10/21 01/10/21 01/10/21 04:33 04:33 04:33 WBC 6.6 RBC 5.70 H Hgb 15.6 Hct 50.6 MCV 89 MCH 27.4 MCHC 30.9 L RDW 16.5 H Plt Count 146 L Seg Neutrophils % 70.5 Carbonic Acid HCO3/H2CO3 Ratio ABG pH ABG pCO2 ABG pO2 ABG HCO3 ABG O2 Saturation ABG Base Excess FiO2 Sodium Cancelled Potassium Cancelled Chloride Cancelled Carbon Dioxide Cancelled Anion Gap Cancelled BUN Cancelled Creatinine Cancelled Est GFR ( Amer) Cancelled Est GFR (Non-Af Amer) Cancelled Glucose Cancelled Calcium Cancelled Phosphorus Cancelled TSH Cancelled 04/23/20 04/23/20 04/23/20 06:33 06:33 11:20 WBC RBC Hgb Hct MCV MCH MCHC RDW Plt Count Seg Neutrophils % Carbonic Acid 4.95 H HCO3/H2CO3 Ratio 11:1 ABG pH 7.15 L* ABG pCO2 164.5 H* ABG pO2 97.0 ABG HCO3 55.8 H ABG O2 Saturation 94.0 ABG Base Excess 17.4 FiO2 70% Sodium 140.2 Potassium 4.7 Chloride 90 L Carbon Dioxide 47 H* Anion Gap 3 L BUN 12 Creatinine 0.81 Est GFR ( Amer) > 60 Est GFR (Non-Af Amer) Glucose 73 L Calcium 8.5 Phosphorus 4.7 H TSH 1.05 04/23/20 14:42 WBC RBC Hgb Hct MCV MCH MCHC RDW Plt Count Seg Neutrophils % Carbonic Acid 4.39 H HCO3/H2CO3 Ratio 13:1 ABG pH 7.22 L ABG pCO2 146.0 H* ABG pO2 81.2 ABG HCO3 58.4 H ABG O2 Saturation 92.0 L ABG Base Excess 21.1 FiO2 65% Sodium Potassium Chloride Carbon Dioxide Anion Gap BUN Creatinine Est GFR ( Amer) Est GFR (Non-Af Amer) Glucose Calcium Phosphorus TSH 04/21/20 04/21/20 22:10 22:10 Creatine Kinase 50 L CK-MB (CK-2) 2.68 Troponin I < 0.012 NT-Pro-B Natriuret Pep 2990 H Impressions: Chest X-Ray 04/21/20 22:18 IMPRESSION: Clear lungs. Chest/Abdomen CTA 04/22/20 02:07 IMPRESSION: Negative for pulmonary embolus. Small right pleural effusion. Adjacent consolidation. Ascites in the upper abdomen. TECHNICAL DOCUMENTATION: Quality ID # 436: Final reports with documentation of one or more dose reduction techniques (e.g., Automated exposure control, adjustment of the mA and/or kV according to patient size, use of iterative reconstruction technique) copyright 2011 [employer] All Rights Reserved Assessment and Plan - Diagnosis (1) Acute right-sided CHF (congestive heart failure) Is this a current diagnosis for this admission?: Yes (2) Hypoventilation Is this a current diagnosis for this admission?: Yes (3) MARYCRUZ (obstructive sleep apnea) Is this a current diagnosis for this admission?: Yes (4) Morbid obesity with BMI of 60.0-69.9, adult Is this a current diagnosis for this admission?: Yes (5) T2DM (type 2 diabetes mellitus) Qualifiers: Diabetes mellitus longterm insulin use: without buttermaker continuous churn use Diabetes mellitus complication status: with hyperglycemia Qualified Code(s): E11.65 - Type 2 diabetes mellitus with hyperglycemia Is this a current diagnosis for this admission?: Yes (6) Chronic venous stasis dermatitis of both lower extremities Is this a current diagnosis for this admission?: Yes (7) History of DVT (deep vein thrombosis) Is this a current diagnosis for this admission?: Yes - Plan Summary Summary: Hypoxia / MARYCRUZ / Obesity: ABG today: 7.1, pCO2 160. HCO3 55.8, O2 sat 94%. - Dr. Dockery evaluation patient, declared intubation risk, has transitioned care to ICU service. - Acute on chronic, given BMI and hx untreated MARYCRUZ and newly dc'd right heart failure. Acute right-sided CHF (congestive heart failure): acute diastolic chf exacerbation Cnt IV Lasix Cnt fluid restriction Hart place, strict I/O monitoring Cardiology outpt FU needed MARYCRUZ (obstructive sleep apnea): Case management has been consulted to investigate outpatient CPAP, pt is self-pay. T2DM (type 2 diabetes mellitus): Hem A1c 6.1, well controlled. Chronic Venous Stasis Lower Extremities: Wound care consulted. - Time Time Spent with patient: 35 or more minutes Medications reviewed and adjusted accordingly: Yes Anticipated Discharge Disposition: tbd Anticipated Discharge Timeframe: tbd - Inpatient Certification Based on my medical assessment, after consideration of the patient's comorbidities, presenting symptoms, or acuity I expect that the services needed warrant INPATIENT care.: Yes I certify that my determination is in accordance with my understanding of Medicare's requirements for reasonable and necessary INPATIENT services [42 CFR 412.3e].: Yes Medical Necessity: Failure to Improve With Outpatient Therapy, Significant Comorbidiites Make Outpatient Treatment Too Risky, Need Close Monitoring Due to Risk of Patient Decompensation, Risk of Complication if Not Cared For in Hospital Post Hospital Care: D/C or Transfer Summary
[2020-04-23] MEDS: PROPOFOL 1,000 MG/100 ML INFUS..BTL IV PRN ×4 (16:40→23:38)
[2020-04-23] MEDS ORDERED: HYDROMORPHONE HCL INJ/PF 2 MG/ML AMPULE IV PRN (16:48)
--- NOTE | 2020-04-23 16:48 | Progress Note ---
Provider Note Provider Note: After adjusting bipap settings, his repeat ABG was improved with a pH 7.22 and pCO2 144. However his mental status was decreasing. For this reason he was intubated with a #8 ETT by anesthesia. Currently stable.
[2020-04-23] MEDS ORDERED: PHARMACY COMMUNICATION ORDER MC NR (17:00)
--- NOTE | 2020-04-23 17:41 | RADIOLOGY REPORT (SQ) ---
EXAM DESCRIPTION: CHEST SINGLE VIEW IMAGES COMPLETED DATE/TIME: 04/23/2020 5:15 pm REASON FOR STUDY: Just intubated COMPARISON: None. EXAM PARAMETERS: NUMBER OF VIEWS: One view TECHNIQUE: Single frontal radiograph of the chest. RADIATION DOSE: N/A LIMITATIONS: None. FINDINGS: TEMPORARY SUPPORT DEVICES:ETT in expected location. NG tube courses below the jael-diaphr agm in to the stomach. LUNGS AND PLEURA: No opacities. No masses. No effusions. No pneumothorax. MEDIASTINUM AND HILAR STRUCTURES: No masses. Contour normal. HEART AND VASCULAR STRUCTURES: Heart size normal. Normal vascularity. Aorta normal for age BONES: No acute findings. OTHER: No other significant finding. IMPRESSION: NO ACUTE RADIOGRAPHIC FINDING IN THE CHEST. SUPPORT DEVICE(S) IN EXPECTED LOCATIONS. TECHNICAL DOCUMENTATION: JOB ID: [id number] 2010 [employer]- All Rights Reserved Reading location - IP/workstation name: [email or web address]
[2020-04-23] MEDS ORDERED: ONDANSETRON 4 MG TAB.RAPDIS NG PRN (18:00)
[2020-04-23] MEDS: FAMOTIDINE INJ/PF 20 MG/2 ML SDV IV SCH ×2 (18:04→21:27)
[2020-04-23] MEDS ORDERED: NORMAL SALINE 250 ML with FUROSEMIDE 250 MG IV PRN ×2 (18:33)
[2020-04-23 18:40] LABS: ARTERIAL BLOOD BASE EXCESS 21.8 mmol/L; ARTERIAL BLOOD H2CO3 3.91 mmol/L (1.05-1.35); ARTERIAL BLOOD HCO3 57.4 mmol/L (20-24); ARTERIAL BLOOD O2 SATURATION 99.3 % (94-98); ARTERIAL BLOOD PH 7.26 (7.35-7.45); ARTERIAL BLOOD PO2 228.6 mmHg (80-100); ARTERIAL BLOOD TOTAL CO2 61.4 mmol/L (23-27)
[2020-04-23 18:41] LABS: ARTERIAL BLOOD FIO2 100%
[2020-04-23 18:43] LABS: ARTERIAL BLOOD PCO2 129.9 mmHg (35-45)
--- NOTE | 2020-04-23 19:56 | Progress Note ---
Provider Note Provider Note: Transthoracic echocardiogram was performed and interpreted on MAY 04 but, due to technical difficulties with the ISCV system, a report could not be placed in the patient's chart however the interpretation was conveyed to the patient's hospitalist on MAY 04 @ 1746. After multiple failed attempts to unlock the sagar maldonado to finalize the report I decided to include my interpretation in this note as follows: -Technically limited study with suboptimal windows. -LV systolic function is normal and estimated to be >60%. -LV size is normal. -No gross regional wall motion abnormalities. -Diastolic function is normal. -RV is dilated with global mild hypokinesis. -Valvular structures are grossly normal. -Trace to mild TR, trace PI. -Dilated IVC with less than 50% respiratory collapse consistent elevated RV pressure.
[2020-04-23] MEDS: LEVALBUTEROL HCL NEB 1.25 MG/3 ML AMPUL NEB SCH ×2 (20:42→23:44)
[2020-04-23] MEDS ORDERED: FUROSEMIDE INJ/PF 100 MG/10 ML SDV ONE (21:24)
[2020-04-23] MEDS ORDERED: MIDAZOLAM 2 MG/2 ML INJ IV ONE ×3 (21:30→23:30)
[2020-04-23] MEDS ORDERED: MIDAZOLAM 2 MG/2 ML INJ ONE ×2 (21:32→21:53)
[2020-04-24 00:02] LABS: ARTERIAL BLOOD BASE EXCESS 16.3 mmol/L; ARTERIAL BLOOD FIO2 60%; ARTERIAL BLOOD H2CO3 2.04 mmol/L (1.05-1.35); ARTERIAL BLOOD HCO3 44.7 mmol/L (20-24); ARTERIAL BLOOD O2 SATURATION 90.7 % (94-98); ARTERIAL BLOOD PCO2 67.8 mmHg (35-45); ARTERIAL BLOOD PH 7.44 (7.35-7.45); ARTERIAL BLOOD PO2 59.6 mmHg (80-100); ARTERIAL BLOOD TOTAL CO2 46.8 mmol/L (23-27)
[2020-04-24] MEDS: PROPOFOL 1,000 MG/100 ML INFUS..BTL IV PRN ×7 (02:05→20:45)
[2020-04-24] MEDS: LEVALBUTEROL HCL NEB 1.25 MG/3 ML AMPUL NEB SCH ×5 (04:39→20:06)
[2020-04-24 05:49] LABS: ABSOLUTE EOSINOPHILS # (AUTO) 0.1 10^3/uL (0.0-0.6); ABSOLUTE LYMPHOCYTES (AUTO) 1.1 10^3/uL (0.5-4.7); ABSOLUTE MONOCYTES (AUTO) 1.3 10^3/uL (0.1-1.4); ABSOLUTE NEUT (AUTO) 6.5 10^3/uL (1.7-8.2); BASOPHILS % (AUTO) 0.4 % (0-2); EOSINOPHILS % (AUTO) 0.8 % (0-6); HEMATOCRIT 51.4 % (37.9-51.0); LYMPHOCYTES % (AUTO) 12.3 % (13-45); MEAN CORPUSCULAR HEMOGLOBIN 27.2 pg (27.0-33.4); MEAN CORPUSCULAR HGB CONC 31.1 g/dL (32.0-36.0); MEAN CORPUSCULAR VOLUME 87 fl (80-97); MONOCYTES % (AUTO) 14.4 % (3-13); PLATELET COUNT 148 10^3/uL (150-450); RED BLOOD COUNT 5.88 10^6/uL (4.35-5.55); RED CELL DISTRIBUTION WIDTH 16.8 % (11.5-14.0); SEGMENTED NEUTROPHILS % (AUTO) 72.1 % (42-78); TOTAL CELLS COUNTED % (AUTO) 100 %
[2020-04-24 06:13] LABS: BLOOD UREA NITROGEN 16 mg/dL (7-20); CALCIUM 8.6 mg/dL (8.4-10.2); CHLORIDE 84 mmol/L (98-107); GLUCOSE 89 mg/dL (75-110); POTASSIUM 4.1 mmol/L (3.6-5.0)
[2020-04-24 06:33] LABS: ANION GAP 8 (5-19)
[2020-04-24 06:34] LABS: CARBON DIOXIDE 47 mmol/L (22-30)
[2020-04-24] MEDS: INSULIN LISPRO 100 UNIT/ML 3 ML VIAL SUBCUT SCH ×4 (09:25→21:49)
[2020-04-24] MEDS: FAMOTIDINE INJ/PF 20 MG/2 ML SDV IV SCH ×2 (09:37→21:50)
[2020-04-24] MEDS: ENOXAPARIN SODIUM INJ 40 MG/0.4 ML DISP.SYRIN SUBCUT SCH (09:38)
--- NOTE | 2020-04-24 12:58 | PDOC CRITICAL CARE PROG REPORT ---
General Date:: 04/24/20 ICU Day:: 2 Ventilator Day:: 2 Hospital Day:: 3 Resuscitation Status: Full Code Events in the past 12 to 24 Hours:: Intubated for decreasing mental status despite improved pCO2. Now relatively hyp oxic Review of systems relevant to events:: Pulmonary, CV Reason for ICU Addmission:: High risk of intubation. - Medications: Medications reviewed and adjusted accordingly: Yes Vasopressors:: None Sedation:: None Physical Exam Vital Signs: Temp Pulse Resp BP Pulse Ox 100.6 F H 81 18 126/59 H 92 04/24/20 12:00 04/24/20 12:06 04/24/20 12:06 04/24/20 10:00 04/24/20 12:06 Intake & Output 04/23/20 04/24/20 04/25/20 06:59 06:59 06:59 Intake Total 0 563 101 Output Total 3820 1750 Balance 0 -3257 -1649 Weight 178.2 kg 159.9 kg Weight/Height Weight 159.9 kg Height 5 ft 8 in General appearance: PRESENT: no acute distress, morbidly obese Head exam: PRESENT: atraumatic, normocephalic Eye exam: PRESENT: conjunctiva pink, EOMI, PERRLA. ABSENT: scleral icterus Ear exam: PRESENT: normal external ear exam Mouth exam: PRESENT: moist, tongue midline Respiratory exam: PRESENT: clear to auscultation esther, decreased breath sounds. ABSENT: rales, rhonchi, wheezes Cardiovascular exam: PRESENT: RRR. ABSENT: diastolic murmur, rubs, systolic murmur GI/Abdominal exam: PRESENT: normal bowel sounds, soft. ABSENT: distended, guarding, mass, organolmegaly, rebound, tenderness Rectal exam: PRESENT: deferred Gentrourinary exam: PRESENT: indwelling catheter Extremities exam: PRESENT: +2 edema, other - Lower extremity venous stasis disease. Neurological exam: PRESENT: altered, other - Sedated on diprivan. Skin exam: PRESENT: other - Venous stasis as mentioned. Tubes/Lines: PRESENT: Endotracheal Tube, Nasogastic Tube Laboratory/Radiographs Laboratory Results: 04/24/20 05:23 04/24/20 05:23 04/23/20 04/23/20 04/23/20 14:42 18:15 22:10 WBC RBC Hgb Hct MCV MCH MCHC RDW Plt Count Seg Neutrophils % Carbonic Acid 4.39 H 3.91 H Cancelled HCO3/H2CO3 Ratio 13:1 14:1 Cancelled ABG pH 7.22 L 7.26 L Cancelled ABG pCO2 146.0 H* 129.9 H* Cancelled ABG pO2 81.2 228.6 H Cancelled ABG HCO3 58.4 H 57.4 H Cancelled ABG O2 Saturation 92.0 L 99.3 H Cancelled ABG Base Excess 21.1 21.8 Cancelled FiO2 65% 100% Cancelled Sodium Potassium Chloride Carbon Dioxide Anion Gap BUN Creatinine Est GFR ( Amer) Glucose Calcium 04/23/20 04/24/20 04/24/20 22:33 05:23 05:23 WBC 9.0 RBC 5.88 H Hgb 16.0 Hct 51.4 H MCV 87 MCH 27.2 MCHC 31.1 L RDW 16.8 H Plt Count 148 L Seg Neutrophils % 72.1 Carbonic Acid 2.04 H HCO3/H2CO3 Ratio 21:1 ABG pH 7.44 ABG pCO2 67.8 H ABG pO2 59.6 L ABG HCO3 44.7 H ABG O2 Saturation 90.7 L ABG Base Excess 16.3 FiO2 60% Sodium 139.2 Potassium 4.1 Chloride 84 L Carbon Dioxide 47 H* Anion Gap 8 BUN 16 Creatinine 0.90 Est GFR ( Amer) > 60 Glucose 89 Calcium 8.6 04/22/20 01:45 Clean Catch Midstream Urine Culture - Final Staph Coagulase Negative 04/21/20 04/21/20 22:10 22:10 Creatine Kinase 50 L CK-MB (CK-2) 2.68 Troponin I < 0.012 NT-Pro-B Natriuret Pep 2990 H Impressions: Chest/Abdomen CTA 04/22/20 02:07 IMPRESSION: Negative for pulmonary embolus. Small right pleural effusion. Adjacent consolidation. Ascites in the upper abdomen. TECHNICAL DOCUMENTATION: Quality ID # 436: Final reports with documentation of one or more dose reduction techniques (e.g., Automated exposure control, adjustment of the mA and/or kV according to patient size, use of iterative reconstruction technique) copyright 2011 [employer]- All Rights Reserved Chest X-Ray 04/23/20 00:00 IMPRESSION: NO ACUTE RADIOGRAPHIC FINDING IN THE CHEST. SUPPORT DEVICE(S) IN EXPECTED LOCATIONS. All labs, radiographs, diagnostic studies and EKGs were personally reviewed: Yes In addition, reports of radiographic and diagnostic studies were read: Yes Assessment and Plan - Diagnosis (1) Acute right-sided CHF (congestive heart failure) Is this a current diagnosis for this admission?: Yes Plan: He is now on a lasix drip at 10mg/hr and diuresing. Lower legs slightly less edematous. (2) Hypoventilation Is this a current diagnosis for this admission?: Yes Plan: This will be a problem at etubation. Will need bipap or CPAP at extubation. (3) MARYCRUZ (obstructive sleep apnea) Is this a current diagnosis for this admission?: Yes Plan: Will at least need CPAP. (4) Morbid obesity with BMI of 60.0-69.9, adult Is this a current diagnosis for this admission?: Yes (5) T2DM (type 2 diabetes mellitus) Qualifiers: Diabetes mellitus watermelon inspector insulin use: without watermelon inspector use Diabetes mellitus complication status: with hyperglycemia Qualified Code(s): E11.65 - Type 2 diabetes mellitus with hyperglycemia Is this a current diagnosis for this admission?: Yes Plan: Controlled. Plan Summary: He now has much secretions since the ETT was placed. He may have aspirated. Will check a sputum culture and place on antibiotics to cover GI bugs. Critical Time Critical Time (minutes): 35 Level of Care: ICU Anticipated discharge: Home Anticipated DC Timeframe: Other -: 1. The care of a critical patient is a dynamic process. This note is a sales and merchandising representative synopsis but static in nature. The timeframe for treatments given in order is not necessarily the actual time these treatments may have been done. 2. This patient requires critical care secondary to ongoing requirements for therapy not offered or safe outside the critical care environment. Transfer to a lower level of care will result in altered life or limb morbidity and mortality. 3. Multidisciplinary rounds completed. 4. ABCDE bundle addressed.
--- NOTE | 2020-04-24 13:15 | XCELERA REPORT ---
[address] [address] Transthoracic Echocardiogram Report Name: MOSES DAILY Age: 50 yrs Gender: Male : 1970 Patient Status: Inpatient Patient Location: [address] [place] [address] Study Date: 04/22/2020 03:39 PM Height: 68 in Weight: 396 lb BSA: 2.7 m2 Procedure: A complete two-dimensional transthoracic echocardiogram was performed (2D, M-mode, spectral and color flow Doppler). The study was technically difficult with many images being suboptimal in quality. The study was technically limited with all images being suboptimal in quality. The subcostal views were difficult to obtain and are suboptimal in quality. Reason For Study: new onset CHF Previous Evaluation: No previous studies were available. Ordering Physician: MARY ARMAS Performed By: Cuba Vergara Interpretation Summary -Technically limited study with suboptimal windows. -LV systolic function is normal and estimated to be >60%. -LV size is normal. -No gross regional wall motion abnormalities. -Diastolic function is normal. -RV is dilated with global mild hypokinesis. -Valvular structures are grossly normal. -Trace to mild TR, trace PI. -Dilated IVC with less than 50% respiratory collapse consistent elevated RV pressure. MMode/2D Measurements & Calculations RVDd: 4.0 cm LVIDd: 5.2 cm FS: 37.2 % Ao root diam: 3.5 cm IVSd: 0.97 cm LVIDs: 3.2 cm EDV(Teich): 127.3 ml Ao root area: 9.8 cm2 LVPWd: 1.2 cm ESV(Teich): 42.2 ml LA dimension: 4.3 cm EF(Teich): 66.9 % LVOT diam: 2.1 cm LVOT area: 3.6 cm2 Doppler Measurements & Calculations MV E max bartolo: MV P1/2t max bartolo: Ao V2 max: LV V1 max P.3 cm/sec 104.8 cm/sec 165.3 cm/sec 9.0 mmHg MV A max bartolo: MV P1/2t: 55.1 msec Ao max PG: LV V1 max: 97.9 cm/sec MVA(P1/2t): 4.0 cm2 10.9 mmHg 150.3 cm/sec MV E/A: 1.2 MV dec slope: VANESSA(V,D): 3.3 cm2 557.4 cm/sec2 MV dec time: 0.19 sec PA V2 max: PI end-d bartolo: MV P1/2t-pr_phl: 101.2 cm/sec 124.3 cm/sec 55.1 msec PA max P.1 mmHg Left Ventricle The left ventricle is grossly normal size. Left ventricular systolic function is normal. The Ejection Fraction estimate is 60-65%. Doppler measurements suggest normal left ventricular diastolic function. Right Ventricle The right ventricle is mild to moderately dilated. The right ventricular systolic function is mild to moderately reduced. Atria The right atrium is normal. The left atrium is mildly dilated. Interarterial septum not well visualized and not well dopplered. Cannot comment on ASD/PFO presence. Mitral Valve There is systolic anterior motion of the mitral valve. The mitral valve is grossly normal. There is no evidence of mitral valve prolapse. There is no mitral valve stenosis. There is no mitral regurgitation noted. Aortic Valve The aortic valve is normal in structure and functions normally. The aortic valve is trileaflet. There is no aortic valvular vegetation. There is no aortic valve stenosis. No aortic regurgitation is present. Tricuspid Valve The tricuspid valve is not well visualized secondary to technical limitations. There is no tricuspid valve prolapse. There is no tricuspid stenosis. There is a trace or physiologic amount of tricuspid regurgitation. Pulmonic Valve The pulmonic valve is not well visualized. There is no vegetation on the pulmonic valve. There is no pulmonic valvular stenosis. There is a trace or physiologic amount of pulmonic regurgitation. Great Vessels The aortic root is normal size. The inferior vena cava appeared dilated and did not change with respiration (RAP > 20 mmHg). Effusions There is no pericardial effusion. There is no pleural effusion. : MARY ARMAS Antonio
[2020-04-24] MEDS: NYSTATIN TOPICAL POWDER 15 GM TP SCH ×2 (15:55→19:19)
--- NOTE | 2020-04-24 15:57 | RADIOLOGY REPORT (SQ) ---
EXAM DESCRIPTION: VENOUS BILATERAL LOWER IMAGES COMPLETED DATE/TIME: 04/24/2020 3:04 pm REASON FOR STUDY: DVT/PE COMPARISON: None. TECHNIQUE: Dynamic and static plaza scale and color images acquired of both lower extremity venous sy stems. Selected spectral images acquired with additional compression and augmentation maneuvers. Imag es stored on PACS. LIMITATIONS: Distal superficial femoral veins, popliteal veins, and calf veins are poorly seen becau se of patient body habitus. FINDINGS: RIGHT LEG COMMON FEMORAL AND FEMORAL: Normal phasicity, compression and augmentation. No visualized echogenic m aterial on plaza scale. No defects on color images. POPLITEAL: Poorly seen. CALF VESSELS: Vessels are poorly seen. GSV AND SSV: Normal compression. No visualized echogenic material on plaza scale. No defects on color images. ANY DEEP VENOUS INSUFFICIENCY: Not evaluated. ANY EVIDENCE OF POPLITEAL CYST: No. OTHER: No other significant finding. LEFT LEG COMMON FEMORAL AND FEMORAL: Normal phasicity, compression and augmentation. No visualized echogenic m aterial on plaza scale. No defects on color images. POPLITEAL: Poorly seen. CALF VESSELS: Vessels are poorly seen. GSV AND SSV: Normal compression. No visualized echogenic material on plaza scale. No defects on color images. ANY DEEP VENOUS INSUFFICIENCY: Not evaluated. ANY EVIDENCE POPLITEAL CYST: No. OTHER: No other significant finding. IMPRESSION: There is no DVT or SVT in either leg, but the study is limited as described. TECHNICAL DOCUMENTATION: JOB ID: [id number] 2010 [employer]- All Rights Reserved Reading location - IP/workstation name: [email or web address]
[2020-04-24] MEDS: MEROPENEM 1 GM in NORMAL SALINE 50 ML IV SCH ×2 (16:38→21:48)
[2020-04-24] MEDS: NORMAL SALINE 250 ML with FUROSEMIDE 250 MG IV PRN ×2 (22:15)
[2020-04-25] MEDS: LEVALBUTEROL HCL NEB 1.25 MG/3 ML AMPUL NEB SCH ×6 (00:18→20:10)
[2020-04-25] MEDS: PROPOFOL 1,000 MG/100 ML INFUS..BTL IV PRN ×4 (03:45→17:22)
[2020-04-25 05:08] LABS: ARTERIAL BLOOD BASE EXCESS 26.1 mmol/L; ARTERIAL BLOOD H2CO3 1.87 mmol/L (1.05-1.35); ARTERIAL BLOOD HCO3 53.8 mmol/L (20-24); ARTERIAL BLOOD O2 SATURATION 88.8 % (94-98); ARTERIAL BLOOD PCO2 62.2 mmHg (35-45); ARTERIAL BLOOD PH 7.56 (7.35-7.45); ARTERIAL BLOOD PO2 50.3 mmHg (80-100); ARTERIAL BLOOD TOTAL CO2 55.7 mmol/L (23-27)
[2020-04-25 05:09] LABS: ABSOLUTE EOSINOPHILS # (AUTO) 0.1 10^3/uL (0.0-0.6); ABSOLUTE LYMPHOCYTES (AUTO) 1.6 10^3/uL (0.5-4.7); ABSOLUTE MONOCYTES (AUTO) 1.1 10^3/uL (0.1-1.4); BASOPHILS % (AUTO) 0.4 % (0-2); EOSINOPHILS % (AUTO) 0.9 % (0-6); HEMATOCRIT 47.6 % (37.9-51.0); HEMOGLOBIN 15.3 g/dL (13.5-17.0); LYMPHOCYTES % (AUTO) 14.6 % (13-45); MEAN CORPUSCULAR HEMOGLOBIN 27.6 pg (27.0-33.4); MEAN CORPUSCULAR HGB CONC 32.1 g/dL (32.0-36.0); MEAN CORPUSCULAR VOLUME 86 fl (80-97); MONOCYTES % (AUTO) 9.9 % (3-13); PLATELET COUNT 166 10^3/uL (150-450); RED BLOOD COUNT 5.54 10^6/uL (4.35-5.55); RED CELL DISTRIBUTION WIDTH 16.3 % (11.5-14.0); SEGMENTED NEUTROPHILS % (AUTO) 74.2 % (42-78); TOTAL CELLS COUNTED % (AUTO) 100 %; WHITE BLOOD COUNT 10.7 10^3/uL (4.0-10.5)
[2020-04-25 05:10] LABS: ARTERIAL BLOOD FIO2 60%
[2020-04-25 05:30] LABS: BLOOD UREA NITROGEN 16 mg/dL (7-20); CALCIUM 7.9 mg/dL (8.4-10.2); CHLORIDE 79 mmol/L (98-107); GLUCOSE 106 mg/dL (75-110); PHOSPHORUS 1.9 mg/dL (2.5-4.5); POTASSIUM 3.7 mmol/L (3.6-5.0)
[2020-04-25 05:47] LABS: CARBON DIOXIDE 54 mmol/L (22-30)
[2020-04-25 05:48] LABS: ANION GAP 3 (5-19)
[2020-04-25] MEDS: INSULIN LISPRO 100 UNIT/ML 3 ML VIAL SUBCUT SCH ×4 (07:58→21:28)
[2020-04-25] MEDS: ACETAZOLAMIDE SODIUM INJ 500 MG VIAL IV SCH ×2 (09:13→17:14)
[2020-04-25] MEDS: MEROPENEM 1 GM in NORMAL SALINE 50 ML IV SCH ×2 (09:13→21:27)
[2020-04-25] MEDS: ENOXAPARIN SODIUM INJ 40 MG/0.4 ML DISP.SYRIN SUBCUT SCH (09:14)
[2020-04-25] MEDS: FAMOTIDINE INJ/PF 20 MG/2 ML SDV IV SCH ×2 (09:14→21:27)
[2020-04-25] MEDS: NYSTATIN TOPICAL POWDER 15 GM TP SCH ×2 (11:12→17:14)
--- NOTE | 2020-04-25 11:54 | PDOC CRITICAL CARE PROG REPORT ---
General Date:: 04/25/20 ICU Day:: 3 Ventilator Day:: 3 Hospital Day:: 4 Resuscitation Status: Full Code Events in the past 12 to 24 Hours:: Intubated for decreasing mental status despite improved pCO2. Now relatively hyp oxic 04/25: More awake. Fluid coming off. Still hypoxic and has high CO2. Review of systems relevant to events:: Pulmonary Reason for ICU Addmission:: Intubated. - Medications: Medications reviewed and adjusted accordingly: Yes Vasopressors:: None Sedation:: Propofol. Physical Exam Vital Signs: Temp Pulse Resp BP Pulse Ox 98.7 F 83 18 126/59 H 90 L 04/25/20 10:00 04/25/20 10:00 04/25/20 11:00 04/24/20 10:00 04/25/20 11:00 Intake & Output 04/24/20 04/25/20 04/26/20 06:59 06:59 06:59 Intake Total 563 730 6 Output Total 3820 6550 900 Balance -3257 -5820 -894 Weight 159.9 kg 169.1 kg Weight/Height Weight 169.1 kg Height 5 ft 8 in General appearance: PRESENT: no acute distress, morbidly obese Head exam: PRESENT: atraumatic, normocephalic Eye exam: PRESENT: conjunctiva pink, EOMI, PERRLA. ABSENT: scleral icterus Ear exam: PRESENT: normal external ear exam Mouth exam: PRESENT: moist, tongue midline Respiratory exam: PRESENT: clear to auscultation esther, decreased breath sounds. ABSENT: rales, rhonchi, wheezes Cardiovascular exam: PRESENT: RRR. ABSENT: diastolic murmur, rubs, systolic murmur GI/Abdominal exam: PRESENT: normal bowel sounds, soft. ABSENT: distended, guarding, mass, organolmegaly, rebound, tenderness Rectal exam: PRESENT: deferred Gentrourinary exam: PRESENT: indwelling catheter Extremities exam: PRESENT: pedal edema, tenderness, +2 edema Musculoskeletal exam: PRESENT: normal inspection Neurological exam: PRESENT: altered, awake, CN II-XII grossly intact, other - Sedated. Skin exam: PRESENT: dry, intact, warm. ABSENT: cyanosis, rash Tubes/Lines: PRESENT: Endotracheal Tube, Nasogastic Tube Laboratory/Radiographs Laboratory Results: 04/25/20 04:20 04/25/20 04:20 04/25/20 04/25/20 04/25/20 04:20 04:20 04:20 WBC 10.7 H RBC 5.54 Hgb 15.3 Hct 47.6 MCV 86 MCH 27.6 MCHC 32.1 RDW 16.3 H Plt Count 166 Seg Neutrophils % 74.2 Carbonic Acid 1.87 H HCO3/H2CO3 Ratio 28:1 ABG pH 7.56 H ABG pCO2 62.2 H ABG pO2 50.3 L ABG HCO3 53.8 H ABG O2 Saturation 88.8 L ABG Base Excess 26.1 FiO2 60% Sodium 136.3 L Potassium 3.7 Chloride 79 L Carbon Dioxide 54 H* Anion Gap 3 L BUN 16 Creatinine 0.91 Est GFR ( Amer) > 60 Glucose 106 Calcium 7.9 L Phosphorus 1.9 L Magnesium 1.6 04/22/20 01:45 Clean Catch Midstream Urine Culture - Final Staph Coagulase Negative 04/21/20 04/21/20 22:10 22:10 Creatine Kinase 50 L CK-MB (CK-2) 2.68 Troponin I < 0.012 NT-Pro-B Natriuret Pep 2990 H Impressions: Chest/Abdomen CTA 04/22/20 02:07 IMPRESSION: Negative for pulmonary embolus. Small right pleural effusion. Adjacent consolidation. Ascites in the upper abdomen. TECHNICAL DOCUMENTATION: Quality ID # 436: Final reports with documentation of one or more dose reduction techniques (e.g., Automated exposure control, adjustment of the mA and/or kV according to patient size, use of iterative reconstruction technique) copyright 2011 [employer]- All Rights Reserved Chest X-Ray 04/23/20 00:00 IMPRESSION: NO ACUTE RADIOGRAPHIC FINDING IN THE CHEST. SUPPORT DEVICE(S) IN EXPECTED LOCATIONS. Venous Doppler Study 04/24/20 00:00 IMPRESSION: There is no DVT or SVT in either leg, but the study is limited as described. All labs, radiographs, diagnostic studies and EKGs were personally reviewed: Yes In addition, reports of radiographic and diagnostic studies were read: Yes Assessment and Plan - Diagnosis (1) Acute right-sided CHF (congestive heart failure) Is this a current diagnosis for this admission?: Yes Plan: Keep on lasix drip. Continue diuresis. (2) Hypoventilation Is this a current diagnosis for this admission?: Yes Plan: Keep on ventilator and decrease bicarb with diamox. Too hypoxic to extubate. (3) MARYCRUZ (obstructive sleep apnea) Is this a current diagnosis for this admission?: Yes Plan: After extubation he will need CPAP at night most likely (4) Morbid obesity with BMI of 60.0-69.9, adult Is this a current diagnosis for this admission?: Yes Plan: This is likely the cause of his problems. (5) T2DM (type 2 diabetes mellitus) Qualifiers: Diabetes mellitus gun repair clerk insulin use: without mcfp use Diabetes mellitus complication status: with hyperglycemia Qualified Code(s): E11.65 - Type 2 diabetes mellitus with hyperglycemia Is this a current diagnosis for this admission?: Yes Plan: Not severe, controlled. Plan Summary: Diamox to try and decrease bicarb. PCO2 may follow. He needs to be less hypoxic to extubate. Critical Time Critical Time (minutes): 35 Level of Care: ICU Anticipated discharge: SNF Anticipated DC Timeframe: Other -: 1. The care of a critical patient is a dynamic process. This note is a represe ntative synopsis but static in nature. The timeframe for treatments given in order is not necessarily the actual time these treatments may have been done. 2. This patient requires critical care secondary to ongoing requirements for therapy not offered or safe outside the critical care environment. Transfer to a lower level of care will result in altered life or limb morbidity and mortality. 3. Multidisciplinary rounds completed. 4. ABCDE bundle addressed.
[2020-04-25] MEDS: AMINO AC/PROTEIN HYDR/WHEY PRO 11 GM/45 ML PKT NG SCH (17:14)
[2020-04-25] MEDS: ACETAMINOPHEN 325 MG TABLET PO PRN (21:27)
[2020-04-26] MEDS: LEVALBUTEROL HCL NEB 1.25 MG/3 ML AMPUL NEB SCH ×6 (00:36→21:00)
[2020-04-26] MEDS: PROPOFOL 1,000 MG/100 ML INFUS..BTL IV PRN ×3 (01:15→15:30)
[2020-04-26 03:49] LABS: ARTERIAL BLOOD BASE EXCESS 17.9 mmol/L; ARTERIAL BLOOD H2CO3 2.22 mmol/L (1.05-1.35); ARTERIAL BLOOD HCO3 47.4 mmol/L (20-24); ARTERIAL BLOOD O2 SATURATION 91.8 % (94-98); ARTERIAL BLOOD PH 7.43 (7.35-7.45); ARTERIAL BLOOD PO2 63.4 mmHg (80-100); ARTERIAL BLOOD TOTAL CO2 49.6 mmol/L (23-27)
[2020-04-26 03:52] LABS: ABSOLUTE BASOPHILS # (AUTO) 0.1 10^3/uL (0.0-0.2); ABSOLUTE EOSINOPHILS # (AUTO) 0.3 10^3/uL (0.0-0.6); ABSOLUTE LYMPHOCYTES (AUTO) 1.2 10^3/uL (0.5-4.7); ABSOLUTE NEUT (AUTO) 7.5 10^3/uL (1.7-8.2); BASOPHILS % (AUTO) 0.8 % (0-2); EOSINOPHILS % (AUTO) 3.4 % (0-6); HEMATOCRIT 49.6 % (37.9-51.0); HEMOGLOBIN 15.7 g/dL (13.5-17.0); LYMPHOCYTES % (AUTO) 11.7 % (13-45); MEAN CORPUSCULAR HEMOGLOBIN 27.3 pg (27.0-33.4); MEAN CORPUSCULAR HGB CONC 31.7 g/dL (32.0-36.0); MEAN CORPUSCULAR VOLUME 86 fl (80-97); MONOCYTES % (AUTO) 10.3 % (3-13); PLATELET COUNT 162 10^3/uL (150-450); RED BLOOD COUNT 5.75 10^6/uL (4.35-5.55); RED CELL DISTRIBUTION WIDTH 16.3 % (11.5-14.0); SEGMENTED NEUTROPHILS % (AUTO) 73.8 % (42-78); TOTAL CELLS COUNTED % (AUTO) 100 %; WHITE BLOOD COUNT 10.1 10^3/uL (4.0-10.5)
[2020-04-26 03:57] LABS: ARTERIAL BLOOD FIO2 60%
[2020-04-26 03:58] LABS: ARTERIAL BLOOD PCO2 73.7 mmHg (35-45)
[2020-04-26 04:12] LABS: BLOOD UREA NITROGEN 17 mg/dL (7-20); CALCIUM 8.2 mg/dL (8.4-10.2); CHLORIDE 84 mmol/L (98-107); GLUCOSE 90 mg/dL (75-110); POTASSIUM 3.4 mmol/L (3.6-5.0)
[2020-04-26] MEDS: ACETAMINOPHEN 325 MG TABLET PO PRN (04:28)
[2020-04-26 04:35] LABS: ANION GAP 7 (5-19)
[2020-04-26 04:42] LABS: CARBON DIOXIDE 46 mmol/L (22-30)
[2020-04-26] MEDS: INSULIN LISPRO 100 UNIT/ML 3 ML VIAL SUBCUT SCH ×4 (08:33→22:44)
--- NOTE | 2020-04-26 08:47 | RADIOLOGY REPORT (SQ) ---
EXAM DESCRIPTION: CHEST SINGLE VIEW IMAGES COMPLETED DATE/TIME: 04/26/2020 6:39 am REASON FOR STUDY: congestion COMPARISON: 04/23/2020 NUMBER OF VIEWS: One view. TECHNIQUE: Single frontal radiographic image of the chest acquired. LIMITATIONS: None. FINDINGS: LUNGS AND PLEURA: Stable appearance. MEDIASTINUM AND HEART: Stable heart size and mediastinal structures. SUPPORT DEVICES: Appropriate location without change. BONY STRUCTURES: No acute findings. HARDWARE: None. OTHER: No other significant finding. IMPRESSION: STABLE APPEARANCE OF THE CHEST. SUPPORT DEVICES UNCHANGED. Reading location - IP/workstation name: [email or web address]
[2020-04-26] MEDS: NYSTATIN TOPICAL POWDER 15 GM TP SCH ×2 (10:01→19:03)
[2020-04-26] MEDS: ENOXAPARIN SODIUM INJ 40 MG/0.4 ML DISP.SYRIN SUBCUT SCH (10:02)
[2020-04-26] MEDS: AMINO AC/PROTEIN HYDR/WHEY PRO 11 GM/45 ML PKT NG SCH ×2 (10:02→17:18)
[2020-04-26] MEDS: MEROPENEM 1 GM in NORMAL SALINE 50 ML IV SCH ×2 (10:02→22:52)
[2020-04-26] MEDS: FAMOTIDINE INJ/PF 20 MG/2 ML SDV IV SCH ×2 (10:02→22:52)
[2020-04-26] MEDS ORDERED: ACETAMINOPHEN 325 MG TABLET NG PRN (11:00)
--- NOTE | 2020-04-26 15:04 | PDOC CRITICAL CARE PROG REPORT ---
General Date:: 04/26/20 ICU Day:: 3 Ventilator Day:: 3 Hospital Day:: 4 Resuscitation Status: Full Code Events in the past 12 to 24 Hours:: Intubated for decreasing mental status despite improved pCO2. Now relatively hyp oxic 04/25: More awake. Fluid coming off. Still hypoxic and has high CO2. 04/26: More awake. Answering questions. Coming down on FIO2 Review of systems relevant to events:: Pulmonary, CV Reason for ICU Addmission:: Intubated. - Medications: Medications reviewed and adjusted accordingly: Yes Vasopressors:: None Sedation:: Diprivan. Physical Exam Vital Signs: Temp Pulse Resp BP Pulse Ox 99.2 F 81 17 117/55 L 94 04/26/20 12:00 04/26/20 12:45 04/26/20 12:45 04/26/20 12:00 04/26/20 12:45 Intake & Output 04/25/20 04/26/20 04/27/20 06:59 06:59 06:59 Intake Total 730 566 218 Output Total 6550 3850 700 Balance -5820 -3284 -482 Weight 169.1 kg 161.6 kg Weight/Height Weight 161.6 kg Height 5 ft 8 in General appearance: PRESENT: no acute distress, morbidly obese Head exam: PRESENT: atraumatic, normocephalic Eye exam: PRESENT: conjunctiva pink, EOMI, PERRLA. ABSENT: scleral icterus Ear exam: PRESENT: normal external ear exam Mouth exam: PRESENT: moist, tongue midline Respiratory exam: PRESENT: clear to auscultation esther, decreased breath sounds. ABSENT: rales, rhonchi, wheezes Cardiovascular exam: PRESENT: RRR. ABSENT: diastolic murmur, rubs, systolic murmur GI/Abdominal exam: PRESENT: normal bowel sounds, soft. ABSENT: distended, guarding, mass, organolmegaly, rebound, tenderness Rectal exam: PRESENT: deferred Gentrourinary exam: PRESENT: indwelling catheter Extremities exam: PRESENT: full ROM, pedal edema, +2 edema, other - His edema is still present but his lower legs are softer. Hands less swollen. ABSENT: calf tenderness, clubbing Musculoskeletal exam: PRESENT: normal inspection Neurological exam: PRESENT: altered - Sedated, awake, other - Answering simple questions. Tubes/Lines: PRESENT: Endotracheal Tube, Nasogastic Tube Laboratory/Radiographs Laboratory Results: 04/26/20 03:40 04/26/20 03:40 04/26/20 04/26/20 04/26/20 03:40 03:40 03:40 WBC 10.1 RBC 5.75 H Hgb 15.7 Hct 49.6 MCV 86 MCH 27.3 MCHC 31.7 L RDW 16.3 H Plt Count 162 Seg Neutrophils % 73.8 Carbonic Acid 2.22 H HCO3/H2CO3 Ratio 21:1 ABG pH 7.43 ABG pCO2 73.7 H* ABG pO2 63.4 L ABG HCO3 47.4 H ABG O2 Saturation 91.8 L ABG Base Excess 17.9 FiO2 60% Sodium 137.3 Potassium 3.4 L Chloride 84 L Carbon Dioxide 46 H* Anion Gap 7 BUN 17 Creatinine 1.15 Est GFR ( Amer) > 60 Glucose 90 Calcium 8.2 L 04/24/20 12:52 Tracheal Aspirate Gram Stain - Final 04/21/20 04/21/20 22:10 22:10 Creatine Kinase 50 L CK-MB (CK-2) 2.68 Troponin I < 0.012 NT-Pro-B Natriuret Pep 2990 H Impressions: Chest/Abdomen CTA 04/22/20 02:07 IMPRESSION: Negative for pulmonary embolus. Small right pleural effusion. Adjacent consolidation. Ascites in the upper abdomen. TECHNICAL DOCUMENTATION: Quality ID # 436: Final reports with documentation of one or more dose reduction techniques (e.g., Automated exposure control, adjustment of the mA and/or kV according to patient size, use of iterative reconstruction technique) copyright 2011 [employer]- All Rights Reserved Venous Doppler Study 04/24/20 00:00 IMPRESSION: There is no DVT or SVT in either leg, but the study is limited as described. Chest X-Ray 04/26/20 04:00 IMPRESSION: STABLE APPEARANCE OF THE CHEST. SUPPORT DEVICES UNCHANGED. All labs, radiographs, diagnostic studies and EKGs were personally reviewed: Yes In addition, reports of radiographic and diagnostic studies were read: Yes Assessment and Plan - Diagnosis (1) Acute right-sided CHF (congestive heart failure) Is this a current diagnosis for this admission?: Yes Plan: This is a consequence of untreated MARYCRUZ, Pulmonary HTN. He will need CPAP when extubated. He probably is hypoxic normally. (2) Hypoventilation Is this a current diagnosis for this admission?: Yes Plan: Cpap or Bipap when extubated. (3) MARYCRUZ (obstructive sleep apnea) Is this a current diagnosis for this admission?: Yes Plan: Same with several risk factors for MARYCRUZ. Obesity, neck thickness. Sleepy during the day, snoring cannot be assessed (4) Morbid obesity with BMI of 60.0-69.9, adult Is this a current diagnosis for this admission?: Yes Plan: Unchanged (5) T2DM (type 2 diabetes mellitus) Qualifiers: Diabetes mellitus exterminator helper termite insulin use: without snf use Diabetes mellitus complication status: with hyperglycemia Qualified Code(s): E11.65 - Type 2 diabetes mellitus with hyperglycemia Is this a current diagnosis for this admission?: Yes Plan: Controlled Plan Summary: He has had no response from Diamox. This degree of hypoxia may be too much to extubate. Critical Time Critical Time (minutes): 35 Level of Care: ICU Anticipated discharge: Other Anticipated DC Timeframe: Other -: 1. The care of a critical patient is a dynamic process. This note is a development representative synopsis but static in nature. The timeframe for treatments given in order is not necessarily the actual time these treatments may have been done. 2. This patient requires critical care secondary to ongoing requirements for therapy not offered or safe outside the critical care environment. Transfer to a lower level of care will result in altered life or limb morbidity and mortality. 3. Multidisciplinary rounds completed. 4. ABCDE bundle addressed.
[2020-04-26] MEDS: NORMAL SALINE 250 ML with FUROSEMIDE 250 MG IV PRN ×2 (17:19)
[2020-04-26] MEDS: PHARMACY COMMUNICATION ORDER MC SCH (17:20)
[2020-04-27] MEDS: PROPOFOL 1,000 MG/100 ML INFUS..BTL IV PRN ×3 (00:03→17:06)
[2020-04-27] MEDS: LEVALBUTEROL HCL NEB 1.25 MG/3 ML AMPUL NEB SCH ×6 (00:51→19:44)
[2020-04-27 05:11] LABS: ABSOLUTE BASOPHILS # (AUTO) 0.1 10^3/uL (0.0-0.2); ABSOLUTE EOSINOPHILS # (AUTO) 0.4 10^3/uL (0.0-0.6); ABSOLUTE LYMPHOCYTES (AUTO) 1.4 10^3/uL (0.5-4.7); ABSOLUTE MONOCYTES (AUTO) 1.2 10^3/uL (0.1-1.4); ABSOLUTE NEUT (AUTO) 5.9 10^3/uL (1.7-8.2); BASOPHILS % (AUTO) 0.6 % (0-2); EOSINOPHILS % (AUTO) 4.6 % (0-6); HEMATOCRIT 50.1 % (37.9-51.0); HEMOGLOBIN 16.1 g/dL (13.5-17.0); LYMPHOCYTES % (AUTO) 15.8 % (13-45); MEAN CORPUSCULAR HEMOGLOBIN 27.6 pg (27.0-33.4); MEAN CORPUSCULAR HGB CONC 32.2 g/dL (32.0-36.0); MEAN CORPUSCULAR VOLUME 86 fl (80-97); PLATELET COUNT 166 10^3/uL (150-450); RED BLOOD COUNT 5.84 10^6/uL (4.35-5.55); RED CELL DISTRIBUTION WIDTH 16.3 % (11.5-14.0); TOTAL CELLS COUNTED % (AUTO) 100 %
[2020-04-27 05:21] LABS: INTERNATIONAL RATION (INR) 1.09; PROTHROMBIN TIME 14.3 SEC (11.4-15.4)
[2020-04-27 05:24] LABS: ALBUMIN 3.1 g/dL (3.5-5.0); ALKALINE PHOSPHATASE 98 U/L (38-126); ASPARTATE AMINO TRANSFERASE 135 U/L (17-59); BILIRUBIN,DIRECT 2.2 mg/dL (0.0-0.4); BILIRUBIN,TOTAL 3.2 mg/dL (0.2-1.3); BLOOD UREA NITROGEN 22 mg/dL (7-20); CALCIUM 8.5 mg/dL (8.4-10.2); CHLORIDE 87 mmol/L (98-107); GLUCOSE 94 mg/dL (75-110); POTASSIUM 3.9 mmol/L (3.6-5.0); TOTAL PROTEIN 6.5 g/dL (6.3-8.2)
[2020-04-27 05:35] LABS: ANION GAP 6 (5-19)
[2020-04-27 05:36] LABS: CARBON DIOXIDE 45 mmol/L (22-30)
[2020-04-27] MEDS: INSULIN LISPRO 100 UNIT/ML 3 ML VIAL SUBCUT SCH ×4 (10:19→22:30)
[2020-04-27] MEDS: FAMOTIDINE INJ/PF 20 MG/2 ML SDV IV SCH ×2 (12:08→22:30)
[2020-04-27] MEDS: AMINO AC/PROTEIN HYDR/WHEY PRO 11 GM/45 ML PKT NG SCH ×2 (12:09→17:06)
[2020-04-27] MEDS: MEROPENEM 1 GM in NORMAL SALINE 50 ML IV SCH ×2 (12:09→22:30)
[2020-04-27] MEDS: ENOXAPARIN SODIUM INJ 40 MG/0.4 ML DISP.SYRIN SUBCUT SCH (12:09)
[2020-04-27] MEDS: NYSTATIN TOPICAL POWDER 15 GM TP SCH ×2 (12:11→17:20)
--- NOTE | 2020-04-27 15:50 | PDOC CRITICAL CARE PROG REPORT ---
General Date:: 04/27/20 ICU Day:: 4 Ventilator Day:: 4 Hospital Day:: 5 Resuscitation Status: Full Code Events in the past 12 to 24 Hours:: Intubated for decreasing mental status despite improved pCO2. Now relatively hyp oxic 04/25: More awake. Fluid coming off. Still hypoxic and has high CO2. 04/26: More awake. Answering questions. Coming down on FIO2 04/27: More awake, making more progress on vent. Review of systems relevant to events:: Pulmonary, CV Reason for ICU Addmission:: Intubated. - Medications: Medications reviewed and adjusted accordingly: Yes Vasopressors:: None Sedation:: Diprivan Physical Exam Vital Signs: Temp Pulse Resp BP Pulse Ox 98.5 F 76 15 152/74 H 92 04/27/20 12:00 04/27/20 12:00 04/27/20 14:00 04/27/20 12:00 04/27/20 14:00 Intake & Output 04/26/20 04/27/20 04/28/20 06:59 06:59 06:59 Intake Total 566 676 150 Output Total 3850 3035 1025 Balance -3284 -2359 -875 Weight 161.6 kg 169 kg Weight/Height Weight 169 kg Height 5 ft 8 in General appearance: PRESENT: no acute distress, cooperative, morbidly obese Head exam: PRESENT: atraumatic, normocephalic Eye exam: PRESENT: conjunctiva pink, EOMI, PERRLA. ABSENT: scleral icterus Ear exam: PRESENT: normal external ear exam Mouth exam: PRESENT: moist, tongue midline Respiratory exam: PRESENT: clear to auscultation esther, decreased breath sounds. ABSENT: rales, rhonchi, wheezes Cardiovascular exam: PRESENT: RRR. ABSENT: diastolic murmur, rubs, systolic murmur GI/Abdominal exam: PRESENT: normal bowel sounds, soft. ABSENT: distended, guarding, mass, organolmegaly, rebound, tenderness Rectal exam: PRESENT: deferred Gentrourinary exam: PRESENT: indwelling catheter Extremities exam: PRESENT: full ROM, +2 edema, other - Much softer edema in legs and hands. Still present though.. ABSENT: calf tenderness, clubbing, pedal edema Neurological exam: PRESENT: alert, awake, oriented to person, CN II-XII grossly intact Skin exam: PRESENT: dry, other - Venous stasis in lower legs. Tubes/Lines: PRESENT: Endotracheal Tube, Nasogastic Tube Laboratory/Radiographs Laboratory Results: 04/27/20 04:50 04/27/20 04:50 04/27/20 04/27/20 04:50 04:50 WBC 9.0 RBC 5.84 H Hgb 16.1 Hct 50.1 MCV 86 MCH 27.6 MCHC 32.2 RDW 16.3 H Plt Count 166 Seg Neutrophils % 66.0 Sodium 137.6 Potassium 3.9 Chloride 87 L Carbon Dioxide 45 H* Anion Gap 6 BUN 22 H Creatinine 1.08 Est GFR ( Amer) > 60 Glucose 94 Calcium 8.5 Magnesium 2.1 Total Bilirubin 3.2 H AST 135 H Alkaline Phosphatase 98 Total Protein 6.5 Albumin 3.1 L 04/24/20 12:52 Tracheal Aspirate Gram Stain - Final 04/24/20 12:52 Tracheal Aspirate Sputum Culture - Final NORMAL OMAR 04/21/20 04/21/20 22:10 22:10 Creatine Kinase 50 L CK-MB (CK-2) 2.68 Troponin I < 0.012 NT-Pro-B Natriuret Pep 2990 H Impressions: Chest/Abdomen CTA 04/22/20 02:07 IMPRESSION: Negative for pulmonary embolus. Small right pleural effusion. Adjacent consolidation. Ascites in the upper abdomen. TECHNICAL DOCUMENTATION: Quality ID # 436: Final reports with documentation of one or more dose reduction techniques (e.g., Automated exposure control, adjustment of the mA and/or kV according to patient size, use of iterative reconstruction technique) copyright 2011 [employer]- All Rights Reserved Venous Doppler Study 04/24/20 00:00 IMPRESSION: There is no DVT or SVT in either leg, but the study is limited as described. Chest X-Ray 04/26/20 04:00 IMPRESSION: STABLE APPEARANCE OF THE CHEST. SUPPORT DEVICES UNCHANGED. All labs, radiographs, diagnostic studies and EKGs were personally reviewed: Yes In addition, reports of radiographic and diagnostic studies were read: Yes Assessment and Plan - Diagnosis (1) Acute right-sided CHF (congestive heart failure) Is this a current diagnosis for this admission?: Yes Plan: Continue diuresis. He has not had iv fluid in days and still has fluid to remove. Lost 16 kg since admission. (2) Hypoventilation Is this a current diagnosis for this admission?: Yes Plan: We are weaning his ventilator slowly. Will not extubate on 50% (3) MARYCRUZ (obstructive sleep apnea) Is this a current diagnosis for this admission?: Yes Plan: CPAP on extubation. (4) Morbid obesity with BMI of 60.0-69.9, adult Is this a current diagnosis for this admission?: Yes Plan: He has lost 16kg thus far. Plan Summary: Would like to consider extubation at 40-45%. Close. Critical Time Critical Time (minutes): 35 Level of Care: ICU Anticipated discharge: Other Anticipated DC Timeframe: Other -: 1. The care of a critical patient is a dynamic process. This note is a quality control representative synopsis but static in nature. The timeframe for treatments given in order is not necessarily the actual time these treatments may have been done. 2. This patient requires critical care secondary to ongoing requirements for therapy not offered or safe outside the critical care environment. Transfer to a lower level of care will result in altered life or limb morbidity and mortality. 3. Multidisciplinary rounds completed. 4. ABCDE bundle addressed.
[2020-04-27] MEDS: NORMAL SALINE 250 ML with FUROSEMIDE 250 MG IV PRN ×2 (17:06)
[2020-04-27] MEDS: PHARMACY COMMUNICATION ORDER MC SCH (17:08)
[2020-04-27] MEDS ORDERED: SCOPOLAMINE HYDROBROMIDE 1.5 MG PATCH.TD72 TD ONE (19:00)
[2020-04-28] MEDS ORDERED: SCOPOLAMINE HYDROBROMIDE 1.5 MG PATCH.TD72 ONE (00:31)
[2020-04-28] MEDS: LEVALBUTEROL HCL NEB 1.25 MG/3 ML AMPUL NEB SCH ×7 (00:42→23:54)
[2020-04-28] MEDS: PROPOFOL 1,000 MG/100 ML INFUS..BTL IV PRN ×3 (02:36→19:53)
[2020-04-28] MEDS: INSULIN LISPRO 100 UNIT/ML 3 ML VIAL SUBCUT SCH ×4 (08:27→22:19)
--- NOTE | 2020-04-28 08:29 | RADIOLOGY REPORT (SQ) ---
EXAM DESCRIPTION: CHEST SINGLE VIEW IMAGES COMPLETED DATE/TIME: 04/28/2020 6:51 am REASON FOR STUDY: chf COMPARISON: 04/26/2020 EXAM PARAMETERS: NUMBER OF VIEWS: One view. TECHNIQUE: Single frontal radiographic view of the chest acquired. RADIATION DOSE: NA LIMITATIONS: None. FINDINGS: LUNGS AND PLEURA: Low lung volumes with no focal consolidation. Central vascular congesti on with prominent interstitium. No significant effusion. No pneumothorax. MEDIASTINUM AND HILAR STRUCTURES: Stable widening superiorly. HEART AND VASCULAR STRUCTURES: Enlarged, stable. Central vascular congestion. BONES: No acute findings. HARDWARE: Endotracheal tube tip overlies midthoracic trachea. Enteric tube tip overlies distal stoma ch/ proximal duodenum. OTHER: No other significant finding. IMPRESSION: Stable large cardiac silhouette and central vascular congestion. No overt alveolar leisa a. Endotracheal tube tip overlies midthoracic trachea. TECHNICAL DOCUMENTATION: JOB ID: [id number] 2010 [employer]- All Rights Reserved Reading location - IP/workstation name: [email or web address]
[2020-04-28 08:44] LABS: BLOOD UREA NITROGEN 25 mg/dL (7-20); CALCIUM 8.7 mg/dL (8.4-10.2); GLUCOSE 106 mg/dL (75-110); POTASSIUM 3.6 mmol/L (3.6-5.0)
[2020-04-28 09:18] LABS: CHLORIDE 88 mmol/L (98-107)
[2020-04-28 09:24] LABS: ANION GAP 2 (5-19)
[2020-04-28 09:25] LABS: CARBON DIOXIDE 46 mmol/L (22-30)
[2020-04-28] MEDS: MEROPENEM 1 GM in NORMAL SALINE 50 ML IV SCH ×2 (09:47→22:09)
[2020-04-28] MEDS: AMINO AC/PROTEIN HYDR/WHEY PRO 11 GM/45 ML PKT NG SCH ×2 (09:47→18:13)
[2020-04-28] MEDS: ENOXAPARIN SODIUM INJ 40 MG/0.4 ML DISP.SYRIN SUBCUT SCH (09:47)
[2020-04-28] MEDS: FAMOTIDINE INJ/PF 20 MG/2 ML SDV IV SCH ×2 (09:48→22:09)
[2020-04-28] MEDS: NYSTATIN TOPICAL POWDER 15 GM TP SCH ×2 (09:49→18:13)
[2020-04-28] MEDS ORDERED: POTASSIUM CHLORIDE 20 MEQ PACKET PO ONE (14:30)
--- NOTE | 2020-04-28 21:03 | PDOC CRITICAL CARE PROG REPORT ---
General Date:: 04/28/20 ICU Day:: 5 Ventilator Day:: 5 Hospital Day:: 6 Resuscitation Status: Full Code Events in the past 12 to 24 Hours:: Intubated for decreasing mental status despite improved pCO2. Now relatively hyp oxic 04/25: More awake. Fluid coming off. Still hypoxic and has high CO2. 04/26: More awake. Answering questions. Coming down on FIO2 04/27: More awake, making more progress on vent. 04/28: On PSV 10/5; however, SPO2 has drifted into the 80s. He remains on a Lasix drip. Urine output is 6070 mL/h. Potassium 3.6 this a.m. On Jevity for tube feeds. Review of systems relevant to events:: Pulmonary, CV Reason for ICU Addmission:: Intubated. - Medications: Medications reviewed and adjusted accordingly: Yes Vasopressors:: None Physical Exam Vital Signs: Temp Pulse Resp BP Pulse Ox 99.5 F 80 12 97/55 L 97 04/28/20 10:57 04/28/20 11:51 04/28/20 12:31 04/28/20 12:31 04/28/20 12:01 Intake & Output 04/27/20 04/28/20 04/29/20 06:59 06:59 06:59 Intake Total 676 805 126 Output Total 3035 5405 Balance -7 -2069 126 Weight 169 kg 151.4 kg Weight/Height Weight 151.4 kg Height 1.73 m General appearance: PRESENT: no acute distress, morbidly obese, well-developed, well-nourished Head exam: PRESENT: atraumatic, normocephalic Eye exam: PRESENT: conjunctiva pink, EOMI, PERRLA. ABSENT: scleral icterus Mouth exam: PRESENT: moist, tongue midline Neck exam: ABSENT: carotid bruit, JVD, lymphadenopathy, thyromegaly Respiratory exam: PRESENT: rales, rhonchi. ABSENT: wheezes Cardiovascular exam: PRESENT: RRR. ABSENT: diastolic murmur, rubs, systolic murmur Pulses: PRESENT: normal dorsalis pedis pul GI/Abdominal exam: PRESENT: normal bowel sounds, soft. ABSENT: distended, guarding, mass, organolmegaly, rebound, tenderness Gentrourinary exam: PRESENT: indwelling catheter Extremities exam: PRESENT: full ROM, pedal edema. ABSENT: calf tenderness, clubbing Neurological exam: PRESENT: altered, reflexes normal, CN II-XII grossly intact. ABSENT: motor sensory deficit Psychiatric exam: ABSENT: agitated Skin exam: PRESENT: dry, intact, warm. ABSENT: cyanosis, rash Tubes/Lines: PRESENT: Endotracheal Tube, Other - Orogastric Laboratory/Radiographs Laboratory Results: 04/27/20 04:50 04/28/20 06:20 04/27/20 04/28/20 04:50 06:20 Sodium 135.5 L Potassium 3.6 Chloride 88 L Carbon Dioxide 46 H* Anion Gap 2 L BUN 25 H Creatinine 0.92 Est GFR ( Amer) > 60 Glucose 106 Calcium 8.7 TSH 8.60 H 04/24/20 12:52 Tracheal Aspirate Gram Stain - Final 04/24/20 12:52 Tracheal Aspirate Sputum Culture - Final NORMAL OMAR 04/21/20 04/21/20 22:10 22:10 Creatine Kinase 50 L CK-MB (CK-2) 2.68 Troponin I < 0.012 NT-Pro-B Natriuret Pep 2990 H Impressions: Chest/Abdomen CTA 04/22/20 02:07 IMPRESSION: Negative for pulmonary embolus. Small right pleural effusion. Adjacent consolidation. Ascites in the upper abdomen. TECHNICAL DOCUMENTATION: Quality ID # 436: Final reports with documentation of one or more dose reduction techniques (e.g., Automated exposure control, adjustment of the mA and/or kV according to patient size, use of iterative reconstruction technique) copyright 2011 [employer]- All Rights Reserved Venous Doppler Study 04/24/20 00:00 IMPRESSION: There is no DVT or SVT in either leg, but the study is limited as described. Chest X-Ray 04/28/20 04:00 IMPRESSION: Stable large cardiac silhouette and central vascular congestion. No overt alveolar edema. Endotracheal tube tip overlies midthoracic trachea. All labs, radiographs, diagnostic studies and EKGs were personally reviewed: Yes In addition, reports of radiographic and diagnostic studies were read: Yes Assessment and Plan - Diagnosis (1) Acute hypoxemic respiratory failure Is this a current diagnosis for this admission?: Yes Plan: * Continue furosemide infusion today. We will plan to stop after day shift. * Wean FiO2 as tolerated. * Titrate vent settings based on ABG results. (2) Acute right-sided CHF (congestive heart failure) Is this a current diagnosis for this admission?: Yes (3) Morbid obesity with BMI of 60.0-69.9, adult Is this a current diagnosis for this admission?: Yes (4) MARYCRUZ (obstructive sleep apnea) Is this a current diagnosis for this admission?: Yes Critical Time Critical Time (minutes): 30 Level of Care: ICU -: 1. The care of a critical patient is a dynamic process. This note is a software support representative synopsis but static in nature. The timeframe for treatments given in order is not necessarily the actual time these treatments may have been done. 2. This patient requires critical care secondary to ongoing requirements for therapy not offered or safe outside the critical care environment. Transfer to a lower level of care will result in altered life or limb morbidity and mortality. 3. Multidisciplinary rounds completed. 4. ABCDE bundle addressed.
[2020-04-29 04:14] LABS: ABSOLUTE EOSINOPHILS # (AUTO) 0.4 10^3/uL (0.0-0.6); ABSOLUTE LYMPHOCYTES (AUTO) 1.5 10^3/uL (0.5-4.7); ABSOLUTE MONOCYTES (AUTO) 1.1 10^3/uL (0.1-1.4); ABSOLUTE NEUT (AUTO) 5.3 10^3/uL (1.7-8.2); BASOPHILS % (AUTO) 0.6 % (0-2); EOSINOPHILS % (AUTO) 5.2 % (0-6); HEMATOCRIT 50.6 % (37.9-51.0); HEMOGLOBIN 16.3 g/dL (13.5-17.0); LYMPHOCYTES % (AUTO) 18.1 % (13-45); MEAN CORPUSCULAR HEMOGLOBIN 27.4 pg (27.0-33.4); MEAN CORPUSCULAR HGB CONC 32.1 g/dL (32.0-36.0); MEAN CORPUSCULAR VOLUME 85 fl (80-97); MONOCYTES % (AUTO) 12.7 % (3-13); RED BLOOD COUNT 5.94 10^6/uL (4.35-5.55); RED CELL DISTRIBUTION WIDTH 16.5 % (11.5-14.0); SEGMENTED NEUTROPHILS % (AUTO) 63.4 % (42-78); TOTAL CELLS COUNTED % (AUTO) 100 %; WHITE BLOOD COUNT 8.4 10^3/uL (4.0-10.5)
[2020-04-29 04:21] LABS: ALKALINE PHOSPHATASE 99 U/L (38-126); ASPARTATE AMINO TRANSFERASE 94 U/L (17-59); BILIRUBIN,TOTAL 2.9 mg/dL (0.2-1.3); BLOOD UREA NITROGEN 26 mg/dL (7-20); CALCIUM 8.7 mg/dL (8.4-10.2); CHLORIDE 89 mmol/L (98-107); GLUCOSE 110 mg/dL (75-110); PHOSPHORUS 3.7 mg/dL (2.5-4.5); POTASSIUM 3.8 mmol/L (3.6-5.0); TOTAL PROTEIN 6.6 g/dL (6.3-8.2)
[2020-04-29 04:29] LABS: ANION GAP 3 (5-19)
[2020-04-29 04:30] LABS: CARBON DIOXIDE 45 mmol/L (22-30)
[2020-04-29] MEDS: PROPOFOL 1,000 MG/100 ML INFUS..BTL IV PRN ×2 (04:31→11:56)
[2020-04-29] MEDS: LEVALBUTEROL HCL NEB 1.25 MG/3 ML AMPUL NEB SCH ×5 (04:32→20:21)
[2020-04-29 04:40] LABS: PLATELET COUNT 139 10^3/uL (150-450)
[2020-04-29 05:15] LABS: ARTERIAL BLOOD BASE EXCESS 13.4 mmol/L; ARTERIAL BLOOD H2CO3 1.92 mmol/L (1.05-1.35); ARTERIAL BLOOD HCO3 41.5 mmol/L (20-24); ARTERIAL BLOOD O2 SATURATION 93.1 % (94-98); ARTERIAL BLOOD PCO2 63.8 mmHg (35-45); ARTERIAL BLOOD PH 7.43 (7.35-7.45); ARTERIAL BLOOD PO2 66.6 mmHg (80-100); ARTERIAL BLOOD TOTAL CO2 43.5 mmol/L (23-27)
[2020-04-29 05:22] LABS: ARTERIAL BLOOD FIO2 60%
[2020-04-29] MEDS: PHARMACY COMMUNICATION ORDER MC SCH ×2 (07:33→17:54)
[2020-04-29] MEDS: INSULIN LISPRO 100 UNIT/ML 3 ML VIAL SUBCUT SCH ×4 (09:25→22:58)
--- NOTE | 2020-04-29 09:43 | PDOC CRITICAL CARE PROG REPORT ---
General Date:: 04/29/20 Resuscitation Status: Full Code Events in the past 12 to 24 Hours:: Intubated for decreasing mental status despite improved pCO2. Now relatively hypoxic 04/25: More awake. Fluid coming off. Still hypoxic and has high CO2. 04/26: More awake. Answering questions. Coming down on FIO2 04/27: More awake, making more progress on vent. 04/28: On PSV 10/5; however, SPO2 has drifted into the 80s. He remains on a Lasix drip. Urine output is 6070 mL/h. Potassium 3.6 this a.m. On Jevity for tube feeds. 1?16: No issues overnight. Lasix drip off yesterday. Tolerating TF. +/- pain. Moderate thick secretions. Reason for ICU Addmission:: Intubated. Physical Exam Vital Signs: Temp Pulse Resp BP Pulse Ox 98.2 F 68 12 106/59 L 98 04/29/20 06:00 04/29/20 08:26 04/29/20 08:26 04/29/20 07:01 04/29/20 08:26 Intake & Output 04/28/20 04/29/20 04/30/20 06:59 06:59 06:59 Intake Total 805 487 Output Total 2875 1730 Balance -0 -3 Weight 151.4 kg 157.7 kg Weight/Height Weight 157.7 kg Height 5 ft 8 in General appearance: PRESENT: no acute distress, cooperative Exam: Intubated, awake, alert, interactive, follows commands RRR-100 Coarse LS bilat, wheeze R>L, diminished on L. Spont vol 450s, max insp vol 1.5L Obese, soft, NT, +bs Hart with dk urine Moderate 2+ BLE edema Laboratory/Radiographs Laboratory Results: 04/29/20 03:59 04/29/20 03:59 04/29/20 04/29/20 04/29/20 03:59 03:59 03:59 WBC 8.4 RBC 5.94 H Hgb 16.3 Hct 50.6 MCV 85 MCH 27.4 MCHC 32.1 RDW 16.5 H Plt Count 139 L Seg Neutrophils % 63.4 Carbonic Acid Cancelled HCO3/H2CO3 Ratio Cancelled ABG pH Cancelled ABG pCO2 Cancelled ABG pO2 Cancelled ABG HCO3 Cancelled ABG O2 Saturation Cancelled ABG Base Excess Cancelled FiO2 Cancelled Sodium 137.0 Potassium 3.8 Chloride 89 L Carbon Dioxide 45 H* Anion Gap 3 L BUN 26 H Creatinine 0.93 Est GFR ( Amer) > 60 Glucose 110 Calcium 8.7 Phosphorus 3.7 Magnesium 2.3 Total Bilirubin 2.9 H AST 94 H Alkaline Phosphatase 99 Total Protein 6.6 Albumin 3.0 L 04/29/20 05:00 WBC RBC Hgb Hct MCV MCH MCHC RDW Plt Count Seg Neutrophils % Carbonic Acid 1.92 H HCO3/H2CO3 Ratio 21:1 ABG pH 7.43 ABG pCO2 63.8 H ABG pO2 66.6 L ABG HCO3 41.5 H ABG O2 Saturation 93.1 L ABG Base Excess 13.4 FiO2 60% Sodium Potassium Chloride Carbon Dioxide Anion Gap BUN Creatinine Est GFR ( Amer) Glucose Calcium Phosphorus Magnesium Total Bilirubin AST Alkaline Phosphatase Total Protein Albumin 04/21/20 04/21/20 22:10 22:10 Creatine Kinase 50 L CK-MB (CK-2) 2.68 Troponin I < 0.012 NT-Pro-B Natriuret Pep 2990 H Impressions: Chest/Abdomen CTA 04/22/20 02:07 IMPRESSION: Negative for pulmonary embolus. Small right pleural effusion. Adjacent consolidation. Ascites in the upper abdomen. TECHNICAL DOCUMENTATION: Quality ID # 436: Final reports with documentation of one or more dose reduction techniques (e.g., Automated exposure control, adjustment of the mA and/or kV according to patient size, use of iterative reconstruction technique) copyright 2011 [employer] All Rights Reserved Venous Doppler Study 04/24/20 00:00 IMPRESSION: There is no DVT or SVT in either leg, but the study is limited as described. Assessment and Plan - Diagnosis (1) Acute hypoxemic respiratory failure Is this a current diagnosis for this admission?: Yes (2) Acute right-sided CHF (congestive heart failure) Is this a current diagnosis for this admission?: Yes (4) Chronic venous stasis dermatitis of both lower extremities Is this a current diagnosis for this admission?: Yes (5) HTN (hypertension) Qualifiers: Hypertension type: essential hypertension Qualified Code(s): I10 - Essential (primary) hypertension Is this a current diagnosis for this admission?: Yes (6) Morbid obesity Is this a current diagnosis for this admission?: Yes Plan Summary: 50 yo male with Acute Resp Failure. Neuro: alert on propofol, no changes CV: Stable Pulm: Acute Resp Failure. Tolerating PS MV (Peep8, PS10), whilst weaning PS to 8, became hypoxic. Likely 2/2 obesity and acute condition. Moderate secretions on exam. ABG reviewed. Not a candidate for extubation 2/2 above. FEN: saline locked, Labs reviewed. Increase TF to 40/hr. Mild elevation in LFTs, maybe 2/2 propofol (10mcg), will follow. Renal: Cr ok, diuresed 17 L since 04/24. Lasix drip off. Heme/ID: NO leukocytosis. On empiric meropenem until 05/01, no Cx's with growth to date. Endo: follow BS, no hyper/hypoglycemia Lines: CVL and A-line ( ? Function) Critical Time Critical Time (minutes): 30 Level of Care: ICU -: 1. The care of a critical patient is a dynamic process. This note is a community health representative synopsis but static in nature. The timeframe for treatments given in order is not necessarily the actual time these treatments may have been done. 2. This patient requires critical care secondary to ongoing requirements for therapy not offered or safe outside the critical care environment. Transfer to a lower level of care will result in altered life or limb morbidity and mortality. 3. Multidisciplinary rounds completed. 4. ABCDE bundle addressed.
--- NOTE | 2020-04-29 10:37 | RADIOLOGY REPORT (SQ) ---
EXAM DESCRIPTION: CHEST SINGLE VIEW IMAGES COMPLETED DATE/TIME: 04/29/2020 5:44 am REASON FOR STUDY: vent COMPARISON: CT angio chest 04/22/2020 Multiple chest films since 04/21/2020, most recently 04/28/2020 EXAM PARAMETERS: NUMBER OF VIEWS: One view. TECHNIQUE: Single frontal radiographic view of the chest acquired. RADIATION DOSE: NA LIMITATIONS: Portable technique, left lateral costophrenic sulcus cropped from the film. Large patie nt FINDINGS: LUNGS AND PLEURA: No gross acute infiltrates. No pleural effusion or pneumothorax. MEDIASTINUM AND HILAR STRUCTURES: No masses. Contour normal. HEART AND VASCULAR STRUCTURES: Borderline cardiomegaly BONES: No acute findings. HARDWARE: Endotracheal tube tip 3 cm above the neda. Nasoenteric tube very difficult to visualize over the mediastinum OTHER: No other significant finding. IMPRESSION: No acute infiltrates TECHNICAL DOCUMENTATION: JOB ID: [id number] 2010 [employer]- All Rights Reserved Reading location - IP/workstation name: [id number]
[2020-04-29] MEDS: ENOXAPARIN SODIUM INJ 40 MG/0.4 ML DISP.SYRIN SUBCUT SCH (10:42)
[2020-04-29] MEDS: MEROPENEM 1 GM in NORMAL SALINE 50 ML IV SCH ×2 (11:12→23:00)
[2020-04-29] MEDS: FAMOTIDINE INJ/PF 20 MG/2 ML SDV IV SCH ×2 (11:14→22:59)
[2020-04-29] MEDS: AMINO AC/PROTEIN HYDR/WHEY PRO 11 GM/45 ML PKT NG SCH ×2 (11:23→17:53)
[2020-04-29] MEDS: HYDROMORPHONE HCL INJ/PF 2 MG/ML AMPULE IV PRN (18:16)
[2020-04-30] MEDS: LEVALBUTEROL HCL NEB 1.25 MG/3 ML AMPUL NEB SCH ×6 (00:09→21:00)
[2020-04-30] MEDS: PROPOFOL 1,000 MG/100 ML INFUS..BTL IV PRN (03:58)
[2020-04-30] MEDS: HYDROMORPHONE HCL INJ/PF 2 MG/ML AMPULE IV PRN (06:31)
[2020-04-30] MEDS: INSULIN LISPRO 100 UNIT/ML 3 ML VIAL SUBCUT SCH ×4 (08:07→22:20)
[2020-04-30 09:22] LABS: HEMATOCRIT 50.1 % (37.9-51.0); HEMOGLOBIN 15.9 g/dL (13.5-17.0); MEAN CORPUSCULAR HEMOGLOBIN 27.4 pg (27.0-33.4); MEAN CORPUSCULAR HGB CONC 31.8 g/dL (32.0-36.0); MEAN CORPUSCULAR VOLUME 86 fl (80-97); PLATELET COUNT 155 10^3/uL (150-450); RED CELL DISTRIBUTION WIDTH 16.5 % (11.5-14.0); WHITE BLOOD COUNT 7.7 10^3/uL (4.0-10.5)
[2020-04-30] MEDS: FAMOTIDINE INJ/PF 20 MG/2 ML SDV IV SCH ×2 (10:17→22:29)
[2020-04-30] MEDS: MEROPENEM 1 GM in NORMAL SALINE 50 ML IV SCH (10:20)
[2020-04-30] MEDS: ENOXAPARIN SODIUM INJ 40 MG/0.4 ML DISP.SYRIN SUBCUT SCH (10:22)
[2020-04-30] MEDS: AMINO AC/PROTEIN HYDR/WHEY PRO 11 GM/45 ML PKT NG SCH ×2 (10:58→18:37)
--- NOTE | 2020-04-30 14:49 | PDOC CRITICAL CARE PROG REPORT ---
General Date:: 04/30/20 ICU Day:: 8 Resuscitation Status: Full Code Events in the past 12 to 24 Hours:: Intubated for decreasing mental status despite improved pCO2. Now relatively hypoxic 04/25: More awake. Fluid coming off. Still hypoxic and has high CO2. 04/26: More awake. Answering questions. Coming down on FIO2 04/27: More awake, making more progress on vent. 04/28: On PSV 10/5; however, SPO2 has drifted into the 80s. He remains on a Lasix drip. Urine output is 6070 mL/h. Potassium 3.6 this a.m. On Jevity for tube feeds. 04/29: No issues overnight. Lasix drip off yesterday. Tolerating TF. +/- pain. Moderate thick secretions. 04/30: No issues overnight, on PS/cpap with good Vt awake following commands. extubated to venturi mask, with orders for PRN CPAP Review of systems relevant to events:: Pulmonary, CV Reason for ICU Addmission:: Hypoxemic respiratory failure - Medications: Medications reviewed and adjusted accordingly: Yes Vasopressors:: None Sedation:: None Physical Exam Vital Signs: Temp Pulse Resp BP Pulse Ox 98.5 F 89 18 92/57 L 90 L 04/29/20 21:31 04/30/20 07:42 04/30/20 08:31 04/30/20 08:31 04/30/20 08:31 Intake & Output 04/29/20 04/30/20 05/01/20 06:59 06:59 06:59 Intake Total 487 300 19 Output Total 1730 700 Balance -1243 300 -681 Weight 157.7 kg 157.7 kg Weight/Height Weight 157.7 kg Height 5 ft 8 in General appearance: PRESENT: morbidly obese Head exam: PRESENT: atraumatic, normocephalic Eye exam: PRESENT: PERRLA Mouth exam: PRESENT: moist Neck exam: PRESENT: full ROM Respiratory exam: PRESENT: decreased breath sounds Cardiovascular exam: PRESENT: RRR, +S1, +S2 Vascular exam: PRESENT: normal capillary refill GI/Abdominal exam: PRESENT: normal bowel sounds, soft Gentrourinary exam: PRESENT: indwelling catheter Extremities exam: PRESENT: +2 edema Neurological exam: PRESENT: awake, oriented to person, oriented to place, oriented to time, oriented to situation Psychiatric exam: PRESENT: appropriate affect Skin exam: PRESENT: dry - BLE Laboratory/Radiographs Laboratory Results: 04/29/20 03:59 04/21/20 04/21/20 22:10 22:10 Creatine Kinase 50 L CK-MB (CK-2) 2.68 Troponin I < 0.012 NT-Pro-B Natriuret Pep 2990 H Impressions: Chest/Abdomen CTA 04/22/20 02:07 IMPRESSION: Negative for pulmonary embolus. Small right pleural effusion. Adjacent consolidation. Ascites in the upper abdomen. TECHNICAL DOCUMENTATION: Quality ID # 436: Final reports with documentation of one or more dose reduction techniques (e.g., Automated exposure control, adjustment of the mA and/or kV according to patient size, use of iterative reconstruction technique) copyright 2011 [employer]- All Rights Reserved Venous Doppler Study 04/24/20 00:00 IMPRESSION: There is no DVT or SVT in either leg, but the study is limited as described. Chest X-Ray 04/29/20 04:00 IMPRESSION: No acute infiltrates All labs, radiographs, diagnostic studies and EKGs were personally reviewed: Yes In addition, reports of radiographic and diagnostic studies were read: Yes Assessment and Plan - Diagnosis (1) Acute hypoxemic respiratory failure Is this a current diagnosis for this admission?: Yes Plan: * Extubated to face mask * Wean FiO2 as tolerated. * CPAP 8 PRN and QHS (2) Acute right-sided CHF (congestive heart failure) Is this a current diagnosis for this admission?: Yes Plan: Lasix drip stopped yesterday will start po lasix start lisinopril 2.5mg daily will need guideline directed therapy upon discharge (3) HTN (hypertension) Qualifiers: Hypertension type: essential hypertension Qualified Code(s): I10 - Essential (primary) hypertension Is this a current diagnosis for this admission?: Yes Plan: start lisinopril 2.5 mg po daily and monitor creat (4) Morbid obesity Is this a current diagnosis for this admission?: Yes Critical Time Critical Time (minutes): 60 Level of Care: ICU -: 1. The care of a critical patient is a dynamic process. This note is a retail customer service representative synopsis but static in nature. The timeframe for treatments given in order is not necessarily the actual time these treatments may have been done. 2. This patient requires critical care secondary to ongoing requirements for therapy not offered or safe outside the critical care environment. Transfer to a lower level of care will result in altered life or limb morbidity and mortality. 3. Multidisciplinary rounds completed. 4. ABCDE bundle addressed.
[2020-04-30] MEDS: PHARMACY COMMUNICATION ORDER MC SCH (18:37)
[2020-05-01] MEDS: LEVALBUTEROL HCL NEB 1.25 MG/3 ML AMPUL NEB SCH ×6 (00:19→21:03)
[2020-05-01 04:03] LABS: ABSOLUTE BASOPHILS # (AUTO) 0.1 10^3/uL (0.0-0.2); ABSOLUTE EOSINOPHILS # (AUTO) 0.4 10^3/uL (0.0-0.6); ABSOLUTE LYMPHOCYTES (AUTO) 1.5 10^3/uL (0.5-4.7); ABSOLUTE MONOCYTES (AUTO) 0.8 10^3/uL (0.1-1.4); ABSOLUTE NEUT (AUTO) 2.9 10^3/uL (1.7-8.2); EOSINOPHILS % (AUTO) 6.8 % (0-6); HEMATOCRIT 51.8 % (37.9-51.0); HEMOGLOBIN 16.7 g/dL (13.5-17.0); LYMPHOCYTES % (AUTO) 26.6 % (13-45); MEAN CORPUSCULAR HEMOGLOBIN 28.1 pg (27.0-33.4); MEAN CORPUSCULAR HGB CONC 32.3 g/dL (32.0-36.0); MEAN CORPUSCULAR VOLUME 87 fl (80-97); MONOCYTES % (AUTO) 14.9 % (3-13); PLATELET COUNT 148 10^3/uL (150-450); RED BLOOD COUNT 5.95 10^6/uL (4.35-5.55); RED CELL DISTRIBUTION WIDTH 16.5 % (11.5-14.0); SEGMENTED NEUTROPHILS % (AUTO) 50.7 % (42-78); TOTAL CELLS COUNTED % (AUTO) 100 %; WHITE BLOOD COUNT 5.6 10^3/uL (4.0-10.5)
--- NOTE | 2020-05-01 08:19 | PDOC CRITICAL CARE PROG REPORT ---
General Date:: 05/01/20 Resuscitation Status: Full Code Events in the past 12 to 24 Hours:: Intubated for decreasing mental status despite improved pCO2. Now relatively hypoxic 04/25: More awake. Fluid coming off. Still hypoxic and has high CO2. 04/26: More awake. Answering questions. Coming down on FIO2 04/27: More awake, making more progress on vent. 04/28: On PSV 10/5; however, SPO2 has drifted into the 80s. He remains on a Lasix drip. Urine output is 6070 mL/h. Potassium 3.6 this a.m. On Jevity for tube feeds. 04/29: No issues overnight. Lasix drip off yesterday. Tolerating TF. +/- pain. Moderate thick secretions. 04/30: No issues overnight, on PS/cpap with good Vt awake following commands. extubated to venturi mask, with orders for PRN CPAP 05/01: did well overnight, required cpap while sleeping, hemodynamically stable. Tolerating po intake. Ready to transfer to floor Review of systems relevant to events:: Pulmonary, CV Reason for ICU Addmission:: Hypoxemic respiratory failure - Medications: Medications reviewed and adjusted accordingly: Yes Vasopressors:: None Sedation:: None Physical Exam Vital Signs: Temp Pulse Resp BP Pulse Ox 99.1 F 89 18 99/70 L 93 04/30/20 21:39 05/01/20 03:58 05/01/20 07:00 05/01/20 05:00 05/01/20 07:00 Intake & Output 04/30/20 05/01/20 05/02/20 06:59 06:59 06:59 Intake Total 300 119 Output Total 1900 Balance 300 -1781 Weight 157.7 kg Weight/Height Weight 157.7 kg Height 5 ft 8 in General appearance: PRESENT: no acute distress, morbidly obese Head exam: PRESENT: atraumatic, normocephalic Eye exam: PRESENT: PERRLA Mouth exam: PRESENT: moist Neck exam: PRESENT: full ROM Respiratory exam: PRESENT: decreased breath sounds Cardiovascular exam: PRESENT: RRR, +S1, +S2 Pulses: PRESENT: normal radial pulses GI/Abdominal exam: PRESENT: normal bowel sounds, soft Gentrourinary exam: PRESENT: indwelling catheter Extremities exam: PRESENT: full ROM Musculoskeletal exam: PRESENT: full ROM Neurological exam: PRESENT: alert, awake, oriented to person, oriented to time, oriented to situation Laboratory/Radiographs Laboratory Results: 05/01/20 03:36 04/29/20 03:59 04/30/20 05/01/20 09:00 03:36 WBC 7.7 5.6 RBC 5.80 H 5.95 H Hgb 15.9 16.7 Hct 50.1 51.8 H MCV 86 87 MCH 27.4 28.1 MCHC 31.8 L 32.3 RDW 16.5 H 16.5 H Plt Count 155 148 L Seg Neutrophils % 50.7 04/21/20 04/21/20 22:10 22:10 Creatine Kinase 50 L CK-MB (CK-2) 2.68 Troponin I < 0.012 NT-Pro-B Natriuret Pep 2990 H Impressions: Chest/Abdomen CTA 04/22/20 02:07 IMPRESSION: Negative for pulmonary embolus. Small right pleural effusion. Adjacent consolidation. Ascites in the upper abdomen. TECHNICAL DOCUMENTATION: Quality ID # [id number]: Final reports with documentation of one or more dose reduction techniques (e.g., Automated exposure control, adjustment of the mA and/or kV according to patient size, use of iterative reconstruction technique) copyright 2011 [employer]- All Rights Reserved Venous Doppler Study 04/24/20 00:00 IMPRESSION: There is no DVT or SVT in either leg, but the study is limited as described. Chest X-Ray 04/29/20 04:00 IMPRESSION: No acute infiltrates All labs, radiographs, diagnostic studies and EKGs were personally reviewed: Yes In addition, reports of radiographic and diagnostic studies were read: Yes Assessment and Plan - Diagnosis (1) Acute hypoxemic respiratory failure Is this a current diagnosis for this admission?: Yes Plan: * Wean FiO2 as tolerated. * CPAP 8 PRN and QHS (2) Acute right-sided CHF (congestive heart failure) Is this a current diagnosis for this admission?: Yes Plan: TTE showed normal LV with an EF 60%, RV dilatation and hypokinesis Continue po lasix start lisinopril 2.5mg daily will need guideline directed therapy upon discharge (3) HTN (hypertension) Qualifiers: Hypertension type: essential hypertension Qualified Code(s): I10 - Essential (primary) hypertension Is this a current diagnosis for this admission?: Yes Plan: lisinopril 2.5 mg po daily, monitor creat (4) Morbid obesity Is this a current diagnosis for this admission?: Yes Plan Summary: Transfer to [facility] Critical Time Critical Time (minutes): 45 Level of Care: ICU -: 1. The care of a critical patient is a dynamic process. This note is a publications sales representative synopsis but static in nature. The timeframe for treatments given in order is not necessarily the actual time these treatments may have been done. 2. This patient requires critical care secondary to ongoing requirements for therapy not offered or safe outside the critical care environment. Transfer to a lower level of care will result in altered life or limb morbidity and mortality. 3. Multidisciplinary rounds completed. 4. ABCDE bundle addressed.
[2020-05-01] MEDS: FAMOTIDINE INJ/PF 20 MG/2 ML SDV IV SCH ×2 (11:26→22:36)
[2020-05-01] MEDS: ENOXAPARIN SODIUM INJ 40 MG/0.4 ML DISP.SYRIN SUBCUT SCH (11:27)
[2020-05-01] MEDS: INSULIN LISPRO 100 UNIT/ML 3 ML VIAL SUBCUT SCH ×4 (11:29→21:32)
[2020-05-01] MEDS: AMINO AC/PROTEIN HYDR/WHEY PRO 11 GM/45 ML PKT NG SCH (11:37)
[2020-05-02] MEDS: LEVALBUTEROL HCL NEB 1.25 MG/3 ML AMPUL NEB SCH ×4 (00:15→18:11)
[2020-05-02] MEDS ORDERED: INFLUENZA QUAD (6MOS+) 2020-21 VAC 0.5 ML SYR IM ONE (08:00)
[2020-05-02] MEDS: INSULIN LISPRO 100 UNIT/ML 3 ML VIAL SUBCUT SCH ×4 (08:29→21:37)
[2020-05-02] MEDS: ENOXAPARIN SODIUM INJ 40 MG/0.4 ML DISP.SYRIN SUBCUT SCH (10:27)
[2020-05-02] MEDS: FAMOTIDINE INJ/PF 20 MG/2 ML SDV IV SCH ×2 (10:27→21:33)
--- NOTE | 2020-05-02 13:00 | PDOC PROGRESS REPORT ---
Subjective Date:: 05/02/20 Reason For Visit: NEW ONSET OF CONGESTIVE HEART FAILURE, Physical Exam Vital Signs: Temp Pulse Resp BP Pulse Ox 98.1 F 85 18 91/72 L 91 L 05/02/20 12:13 05/02/20 12:13 05/02/20 12:13 05/02/20 12:13 05/02/20 12:13 Intake & Output 05/01/20 05/02/20 05/03/20 06:59 06:59 06:59 Intake Total 119 350 0 Output Total 1900 975 Balance -1781 -625 0 Weight 157.7 kg General appearance: PRESENT: no acute distress, morbidly obese, well-developed, well-nourished Head exam: PRESENT: atraumatic, normocephalic Eye exam: PRESENT: conjunctiva pink, EOMI, PERRLA. ABSENT: scleral icterus Ear exam: PRESENT: normal external ear exam Mouth exam: PRESENT: moist, tongue midline Neck exam: ABSENT: carotid bruit, JVD, lymphadenopathy, thyromegaly Respiratory exam: PRESENT: clear to auscultation esther. ABSENT: rales, rhonchi, wheezes Cardiovascular exam: PRESENT: RRR, +S1, +S2. ABSENT: diastolic murmur, rubs, systolic murmur Pulses: PRESENT: normal dorsalis pedis pul Vascular exam: PRESENT: normal capillary refill GI/Abdominal exam: PRESENT: normal bowel sounds, soft. ABSENT: distended, guarding, mass, organolmegaly, rebound, tenderness Rectal exam: PRESENT: deferred Extremities exam: PRESENT: full ROM, +1 edema. ABSENT: calf tenderness, clubbing, pedal edema Neurological exam: PRESENT: alert, awake, oriented to person, oriented to place, oriented to time, oriented to situation, CN II-XII grossly intact. ABSENT: motor sensory deficit Psychiatric exam: PRESENT: appropriate affect, normal mood. ABSENT: homicidal ideation, suicidal ideation Skin exam: PRESENT: dry, intact, warm. ABSENT: cyanosis, rash - chronic venous stasis Results Laboratory Results: 05/01/20 03:36 04/29/20 03:59 04/21/20 04/21/20 22:10 22:10 Creatine Kinase 50 L CK-MB (CK-2) 2.68 Troponin I < 0.012 NT-Pro-B Natriuret Pep 2990 H Impressions: Chest/Abdomen CTA 04/22/20 02:07 IMPRESSION: Negative for pulmonary embolus. Small right pleural effusion. Adjacent consolidation. Ascites in the upper abdomen. TECHNICAL DOCUMENTATION: Quality ID # [id number]: Final reports with documentation of one or more dose reduction techniques (e.g., Automated exposure control, adjustment of the mA and/or kV according to patient size, use of iterative reconstruction technique) copyright 2011 [employer]- All Rights Reserved Venous Doppler Study 04/24/20 00:00 IMPRESSION: There is no DVT or SVT in either leg, but the study is limited as described. Chest X-Ray 04/29/20 04:00 IMPRESSION: No acute infiltrates Assessment and Plan - Diagnosis (1) Acute hypoxemic respiratory failure Is this a current diagnosis for this admission?: Yes Plan: * Wean FiO2 as tolerated. * (2) Acute right-sided CHF (congestive heart failure) Is this a current diagnosis for this admission?: Yes (3) Chronic venous stasis dermatitis of both lower extremities Is this a current diagnosis for this admission?: Yes (4) History of DVT (deep vein thrombosis) Is this a current diagnosis for this admission?: Yes (5) Hypoventilation Is this a current diagnosis for this admission?: Yes (6) Morbid obesity Is this a current diagnosis for this admission?: Yes (7) MARYCRUZ (obstructive sleep apnea) Is this a current diagnosis for this admission?: Yes (8) Erythrocytosis due to alveolar hypoventilation Is this a current diagnosis for this admission?: Yes - Plan Summary Summary: MARYCRUZ (obstructive sleep apnea): Case management has been consulted to investigate outpatient CPAP, pt is self-pay. T2DM (type 2 diabetes mellitus): Hem A1c 6.1, well controlled. Chronic Venous Stasis Lower Extremities: Wound care consulted. 05/02 This patient was originally admitted to the floor for acute respiratory failure and was initially on BiPAP. It appears that he did get worse and was transfer red to the intensive care unit. He was intubated and found to have acute right- sided failure. He was subsequently successfully extubated. Patient was transferred out of the unit on May 01. He is on 6 L of oxygen currently with oxygen saturation of 97% so the plan is to continue to taper him. Patient is morbidly obese. Echocardiogram done revealed largely intact left ventricular function with ejection fraction of 60 to 65% and patient was thought to have an acute right-sided failure currently he is on no Lasix will have to see if he will ultimately require home oxygen Have also requested to follow-up by case management as it is unclear if patient will need a CPAP machine. He said he used 1 years ago and it appears he has been using 1 also since extubation. Patient has also been advised of the need to lose weight. He is currently on no antihypertensive and is also on no Lasix or any other diuretic. His blood pressure is somewhat borderline low. We will continue to monitor and wean off oxygen as tolerated. Patient also mentions that he has nowhere to be discharged to at this time and that is possibly homeless. He said he was living in an RV prior to admission but will n ot be going back there and he has nowhere else to go. Will await case management input - Time Time Spent with patient: 15-24 minutes Medications reviewed and adjusted accordingly: Yes Anticipated Discharge Disposition: Home, Self Care Anticipated Discharge Timeframe: within 72 hours
[2020-05-02] MEDS ORDERED: LEVALBUTEROL HCL NEB 1.25 MG/3 ML AMPUL NEB PRN (13:14)
[2020-05-03] MEDS: INSULIN LISPRO 100 UNIT/ML 3 ML VIAL SUBCUT SCH ×4 (08:35→22:29)
[2020-05-03] MEDS: FAMOTIDINE INJ/PF 20 MG/2 ML SDV IV SCH (09:38)
[2020-05-03] MEDS: ENOXAPARIN SODIUM INJ 40 MG/0.4 ML DISP.SYRIN SUBCUT SCH (09:38)
--- NOTE | 2020-05-03 13:51 | PDOC PROGRESS REPORT ---
Subjective Date:: 05/03/20 Reason For Visit: NEW ONSET OF CONGESTIVE HEART FAILURE, Physical Exam Vital Signs: Temp Pulse Resp BP Pulse Ox 97.9 F 71 15 105/76 96 05/03/20 08:21 05/03/20 07:33 05/03/20 07:33 05/03/20 07:33 05/03/20 07:33 Intake & Output 05/02/20 05/03/20 05/04/20 06:59 06:59 06:59 Intake Total 350 840 Output Total 975 1525 Balance -625 -685 Weight 157.7 kg 158.4 kg General appearance: PRESENT: no acute distress, morbidly obese, well-developed, well-nourished Head exam: PRESENT: atraumatic, normocephalic Eye exam: PRESENT: conjunctiva pink, EOMI, PERRLA. ABSENT: scleral icterus Ear exam: PRESENT: normal external ear exam Mouth exam: PRESENT: moist, tongue midline Neck exam: ABSENT: carotid bruit, JVD, lymphadenopathy, thyromegaly Respiratory exam: PRESENT: clear to auscultation esther, unlabored. ABSENT: rales, rhonchi, wheezes Cardiovascular exam: PRESENT: RRR, +S1, +S2. ABSENT: diastolic murmur, rubs, systolic murmur Pulses: PRESENT: normal dorsalis pedis pul Vascular exam: PRESENT: normal capillary refill GI/Abdominal exam: PRESENT: normal bowel sounds, soft. ABSENT: distended, guarding, mass, organolmegaly, rebound, tenderness Rectal exam: PRESENT: deferred Extremities exam: PRESENT: full ROM. ABSENT: calf tenderness, clubbing, pedal edema Neurological exam: PRESENT: alert, awake, oriented to person, oriented to place, oriented to time, oriented to situation, CN II-XII grossly intact. ABSENT: motor sensory deficit Psychiatric exam: PRESENT: appropriate affect, normal mood. ABSENT: homicidal ideation, suicidal ideation Skin exam: PRESENT: dry, intact, warm. ABSENT: cyanosis, rash Results Laboratory Results: 05/01/20 03:36 04/29/20 03:59 04/21/20 04/21/20 22:10 22:10 Creatine Kinase 50 L CK-MB (CK-2) 2.68 Troponin I < 0.012 NT-Pro-B Natriuret Pep 2990 H Impressions: Chest/Abdomen CTA 04/22/20 02:07 IMPRESSION: Negative for pulmonary embolus. Small right pleural effusion. Adjacent consolidation. Ascites in the upper abdomen. TECHNICAL DOCUMENTATION: Quality ID # [id number]: Final reports with documentation of one or more dose reduction techniques (e.g., Automated exposure control, adjustment of the mA and/or kV according to patient size, use of iterative reconstruction technique) copyright 2011 [employer]- All Rights Reserved Venous Doppler Study 04/24/20 00:00 IMPRESSION: There is no DVT or SVT in either leg, but the study is limited as described. Chest X-Ray 04/29/20 04:00 IMPRESSION: No acute infiltrates Assessment and Plan - Diagnosis (1) Acute hypoxemic respiratory failure Is this a current diagnosis for this admission?: Yes (2) Acute right-sided CHF (congestive heart failure) Is this a current diagnosis for this admission?: Yes (3) Chronic venous stasis dermatitis of both lower extremities Is this a current diagnosis for this admission?: Yes (4) History of DVT (deep vein thrombosis) Is this a current diagnosis for this admission?: Yes (5) Hypoventilation Is this a current diagnosis for this admission?: Yes (6) Morbid obesity Is this a current diagnosis for this admission?: Yes (7) MARYCRUZ (obstructive sleep apnea) Is this a current diagnosis for this admission?: Yes (8) Erythrocytosis due to alveolar hypoventilation Is this a current diagnosis for this admission?: Yes - Plan Summary Summary: MARYCRUZ (obstructive sleep apnea): Case management has been consulted to investigate outpatient CPAP, pt is self-pay. T2DM (type 2 diabetes mellitus): Hem A1c 6.1, well controlled. Chronic Venous Stasis Lower Extremities: Wound care consulted. 05/02 This patient was originally admitted to the floor for acute respiratory failure and was initially on BiPAP. It appears that he did get worse and was transferred to the intensive care unit. He was intubated and found to have acute right-sided failure. He was subsequently successfully extubated. Patient was transferred out of the unit on May 01. He is on 6 L of oxygen currently with oxygen saturation of 97% so the plan is to continue to taper him. Patient is morbidly obese. Echocardiogram done revealed largely intact left ventricular function with ejection fraction of 60 to 65% and patient was thought to have an acute right-sided failure currently he is on no Lasix will have to see if he will ultimately require home oxygen Have also requested to follow-up by case management as it is unclear if patient will need a CPAP machine. He said he used 1 years ago and it appears he has been using 1 also since extubation. Patient has also been advised of the need to lose weight. He is currently on no antihypertensive and is also on no Lasix or any other diuretic. His blood pressure is somewhat borderline low. We will continue to monitor and wean off oxygen as tolerated. Patient also mentions that he has nowhere to be discharged to at this time and that is possibly homeless. He said he was living in an prior to admission but will not be going back there and he has nowhere else to go. Will await case management input 05/03 Patient has no new complaints. He continues to improve. Still on 4 L of oxygen. Oxygen Saturation is at about 90%. Continue to taper oxygen as tolerated. Social service comments noted. Patient will need a disposition and this is being worked on at this time. Echocardiogram is largely benign except for diastolic dysfunction. He is currently on no diuretic and on no antihypertensive at this time. - Time Time Spent with patient: 15-24 minutes Medications reviewed and adjusted accordingly: Yes Anticipated Discharge Disposition: TBD Anticipated Discharge Timeframe: TBD
[2020-05-04] MEDS: PANTOPRAZOLE SODIUM 20 MG TABLET.DR PO SCH (06:02)
[2020-05-04] MEDS: INSULIN LISPRO 100 UNIT/ML 3 ML VIAL SUBCUT SCH ×4 (08:05→21:44)
[2020-05-04] MEDS: ENOXAPARIN SODIUM INJ 40 MG/0.4 ML DISP.SYRIN SUBCUT SCH (10:15)
[2020-05-04] MEDS ORDERED: ACETAMINOPHEN 325 MG TABLET PO PRN (15:00)
[2020-05-04] MEDS ORDERED: ONDANSETRON 4 MG TAB.RAPDIS SL PRN (15:00)
--- NOTE | 2020-05-04 16:31 | PDOC PROGRESS REPORT ---
Subjective Date:: 05/04/20 Subjective:: Patient is sitting in the chair. Hart catheter in place with concentrated urine. Currently on nasal cannula. Does not appear to be in any acute distress. No new complaints. Reason For Visit: NEW ONSET OF CONGESTIVE HEART FAILURE, Physical Exam Vital Signs: Temp Pulse Resp BP Pulse Ox 98.2 F 92 18 91/75 L 97 05/04/20 15:12 05/04/20 15:12 05/04/20 15:12 05/04/20 15:12 05/04/20 15:12 Intake & Output 05/03/20 05/04/20 05/05/20 06:59 06:59 06:59 Intake Total 840 1160 Output Total 1525 725 Balance -685 435 Weight 158.4 kg 153.5 kg General appearance: PRESENT: no acute distress, cooperative, morbidly obese, wel l-developed Head exam: PRESENT: atraumatic, normocephalic Eye exam: PRESENT: conjunctiva pink. ABSENT: scleral icterus Ear exam: PRESENT: normal external ear exam. ABSENT: bleeding, drainage Mouth exam: PRESENT: moist, tongue midline Respiratory exam: PRESENT: rales - Basal rales, symmetrical, unlabored. ABSENT: rhonchi, tachypnea, wheezes Cardiovascular exam: PRESENT: RRR, +S1, +S2 GI/Abdominal exam: PRESENT: normal bowel sounds, soft, other - Pendulous abdomen. ABSENT: tenderness Rectal exam: PRESENT: deferred Gentrourinary exam: PRESENT: indwelling catheter Extremities exam: PRESENT: +2 edema Neurological exam: PRESENT: alert, awake, oriented to person, oriented to place, oriented to time, oriented to situation, CN II-XII grossly intact. ABSENT: altered Psychiatric exam: PRESENT: appropriate affect. ABSENT: agitated, anxious Focused psych exam: ABSENT: delusional, paranoid, restlessness Skin exam: PRESENT: other - Dusky discoloration of lower legs consistent with chronic lower extremity edema Results Laboratory Results: 05/01/20 03:36 04/29/20 03:59 04/21/20 04/21/20 22:10 22:10 Creatine Kinase 50 L CK-MB (CK-2) 2.68 Troponin I < 0.012 NT-Pro-B Natriuret Pep 2990 H Impressions: Chest/Abdomen CTA 04/22/20 02:07 IMPRESSION: Negative for pulmonary embolus. Small right pleural effusion. Adjacent consolidation. Ascites in the upper abdomen. TECHNICAL DOCUMENTATION: Quality ID # [id number]: Final reports with documentation of one or more dose reduction techniques (e.g., Automated exposure control, adjustment of the mA and/or kV according to patient size, use of iterative reconstruction technique) copyright 2011 [employer]- All Rights Reserved Venous Doppler Study 04/24/20 00:00 IMPRESSION: There is no DVT or SVT in either leg, but the study is limited as described. Chest X-Ray 04/29/20 04:00 IMPRESSION: No acute infiltrates Assessment and Plan - Diagnosis (1) Acute hypoxemic respiratory failure Is this a current diagnosis for this admission?: Yes (2) Acute right-sided CHF (congestive heart failure) Is this a current diagnosis for this admission?: Yes (3) Chronic venous stasis dermatitis of both lower extremities Is this a current diagnosis for this admission?: Yes (4) History of DVT (deep vein thrombosis) Is this a current diagnosis for this admission?: Yes (5) Erythrocytosis due to alveolar hypoventilation Is this a current diagnosis for this admission?: Yes (6) Hypoventilation Is this a current diagnosis for this admission?: Yes (7) Morbid obesity Is this a current diagnosis for this admission?: Yes (8) MARYCRUZ (obstructive sleep apnea) Is this a current diagnosis for this admission?: Yes - Plan Summary Summary: MARYCRUZ (obstructive sleep apnea): Case management has been consulted to investigate outpatient CPAP, pt is self-pay. T2DM (type 2 diabetes mellitus): Hem A1c 6.1, well controlled. Chronic Venous Stasis Lower Extremities: Wound care consulted. 05/02 This patient was originally admitted to the floor for acute respiratory failure and was initially on BiPAP. It appears that he did get worse and was transferred to the intensive care unit. He was intubated and found to have acute right-sided failure. He was subsequently successfully extubated. Patient was transferred out of the unit on May 01. He is on 6 L of oxygen currently with oxygen saturation of 97% so the plan is to continue to taper him. Patient is morbidly obese. Echocardiogram done revealed largely intact left ventricular function with ejection fraction of 60 to 65% and patient was thought to have an acute right-sided failure currently he is on no Lasix will have to see if he will ultimately require home oxygen Have also requested to follow-up by case management as it is unclear if patient will need a CPAP machine. He said he used 1 years ago and it appears he has been using 1 also since extubation. Patient has also been advised of the need to lose weight. He is currently on no antihypertensive and is also on no Lasix or any other diuretic. His blood pressure is somewhat borderline low. We will continue to monitor and wean off oxygen as tolerated. Patient also mentions that he has nowhere to be discharged to at this time and that is possibly homeless. He said he was living in an RV prior to admission but will not be going back there and he has nowhere else to go. Will await case management input 05/03 Patient has no new complaints. He continues to improve. Still on 4 L of oxygen. Oxygen Saturation is at about 90%. Continue to taper oxygen as tolerated. Social service comments noted. Patient will need a disposition and this is being worked on at this time. Echocardiogram is largely benign except for diastolic dysfunction. He is curr ently on no diuretic and on no antihypertensive at this time. 05/04/2020 We will recheck laboratory studies tomorrow. Urine is quite concentrated. Will assess renal function. The patient does not have as much of a negative fluid balance as I would expect. Blood pressure can be limiting the use of diuretics. If need be we can utilize midodrine in order to continue diuresis or utilize albumin to improve oncotic pressure and diuresis accordingly. Continue BiPAP for his sleep apnea. At this point stabilization and consideration of bariatric surgery would be ideal however insurance and circumstances are not likely to make this feasible. We will continue to monitor. Continue oxygen supplementation. - Time Time Spent with patient: 15-24 minutes Medications reviewed and adjusted accordingly: Yes Anticipated Discharge Disposition: Unknown Anticipated Discharge Timeframe: Unknown
[2020-05-05] MEDS: PANTOPRAZOLE SODIUM 20 MG TABLET.DR PO SCH (05:44)
[2020-05-05 05:46] LABS: ABSOLUTE BASOPHILS # (AUTO) 0.1 10^3/uL (0.0-0.2); ABSOLUTE EOSINOPHILS # (AUTO) 0.3 10^3/uL (0.0-0.6); ABSOLUTE LYMPHOCYTES (AUTO) 1.4 10^3/uL (0.5-4.7); ABSOLUTE MONOCYTES (AUTO) 0.6 10^3/uL (0.1-1.4); ABSOLUTE NEUT (AUTO) 3.7 10^3/uL (1.7-8.2); BASOPHILS % (AUTO) 1.3 % (0-2); HEMATOCRIT 50.1 % (37.9-51.0); LYMPHOCYTES % (AUTO) 22.9 % (13-45); MEAN CORPUSCULAR HEMOGLOBIN 27.1 pg (27.0-33.4); MEAN CORPUSCULAR HGB CONC 31.8 g/dL (32.0-36.0); MEAN CORPUSCULAR VOLUME 85 fl (80-97); MONOCYTES % (AUTO) 9.3 % (3-13); PLATELET COUNT 197 10^3/uL (150-450); RED BLOOD COUNT 5.88 10^6/uL (4.35-5.55); RED CELL DISTRIBUTION WIDTH 16.2 % (11.5-14.0); SEGMENTED NEUTROPHILS % (AUTO) 61.5 % (42-78); TOTAL CELLS COUNTED % (AUTO) 100 %; WHITE BLOOD COUNT 5.9 10^3/uL (4.0-10.5)
[2020-05-05 06:29] LABS: ALKALINE PHOSPHATASE 102 U/L (38-126); ANION GAP 6 (5-19); ASPARTATE AMINO TRANSFERASE 127 U/L (17-59); BILIRUBIN,DIRECT 0.9 mg/dL (0.0-0.4); BILIRUBIN,TOTAL 1.5 mg/dL (0.2-1.3); BLOOD UREA NITROGEN 15 mg/dL (7-20); CARBON DIOXIDE 36 mmol/L (22-30); CHLORIDE 93 mmol/L (98-107); GLUCOSE 102 mg/dL (75-110); TOTAL PROTEIN 6.4 g/dL (6.3-8.2)
[2020-05-05] MEDS: INSULIN LISPRO 100 UNIT/ML 3 ML VIAL SUBCUT SCH ×4 (09:07→22:07)
[2020-05-05] MEDS: ENOXAPARIN SODIUM INJ 40 MG/0.4 ML DISP.SYRIN SUBCUT SCH (09:09)
--- NOTE | 2020-05-05 10:24 | PDOC PROGRESS REPORT ---
Subjective Date:: 05/05/20 Subjective:: Patient in bed with sheets over his head. He is on nasal cannula. He states th at he did sleep with the CPAP mask last night. Breathing is comfortable this morning. Ulceration on his buttock is very uncomfortable. Reason For Visit: NEW ONSET OF CONGESTIVE HEART FAILURE, Physical Exam Vital Signs: Temp Pulse Resp BP Pulse Ox 99.1 F 78 17 105/73 98 05/05/20 08:17 05/05/20 08:17 05/05/20 08:17 05/05/20 08:17 05/05/20 08:17 Intake & Output 05/04/20 05/05/20 05/06/20 06:59 06:59 06:59 Intake Total 1160 Output Total 725 475 Balance 435 -475 Weight 153.5 kg 154.5 kg General appearance: PRESENT: no acute distress, cooperative, well-developed Head exam: PRESENT: atraumatic, normocephalic Eye exam: PRESENT: conjunctiva pink. ABSENT: scleral icterus Ear exam: PRESENT: normal external ear exam. ABSENT: bleeding, drainage Mouth exam: PRESENT: moist, tongue midline Respiratory exam: PRESENT: clear to auscultation esther, decreased breath sounds - Secondary to body habitus, symmetrical, unlabored. ABSENT: accessory muscle use, rales, rhonchi, tachypnea, wheezes Cardiovascular exam: PRESENT: RRR, +S1, +S2, other - Decreased heart sounds due to body habitus. ABSENT: bradycardia, diastolic murmur, irregular rhythm, systolic murmur, tachycardia GI/Abdominal exam: PRESENT: soft, other - Pendulous abdomen. ABSENT: tenderness Rectal exam: PRESENT: deferred, other - Examination of the skin of the buttocks lesion shows ulceration that is through the dermis. There is some periulcer erythema. There is slough over the ulcer base. Gentrourinary exam: PRESENT: indwelling catheter Extremities exam: PRESENT: +2 edema Musculoskeletal exam: ABSENT: deformity, dislocation Neurological exam: PRESENT: alert, awake, oriented to person, oriented to place, oriented to time, oriented to situation, CN II-XII grossly intact. ABSENT: altered Psychiatric exam: PRESENT: appropriate affect. ABSENT: agitated, anxious Focused psych exam: ABSENT: delusional, paranoid, restlessness Skin exam: PRESENT: other - Dusky discoloration consistent with chronic venous insufficiency bilateral lower extremities Results Laboratory Results: 05/05/20 05:27 05/05/20 05:27 05/05/20 05/05/20 05:27 05:27 WBC 5.9 RBC 5.88 H Hgb 16.0 Hct 50.1 MCV 85 MCH 27.1 MCHC 31.8 L RDW 16.2 H Plt Count 197 Seg Neutrophils % 61.5 Sodium 134.9 L Potassium 4.0 Chloride 93 L Carbon Dioxide 36 H Anion Gap 6 BUN 15 Creatinine 0.67 Est GFR ( Amer) > 60 Glucose 102 Calcium 9.0 Magnesium 1.9 Total Bilirubin 1.5 H AST 127 H Alkaline Phosphatase 102 Total Protein 6.4 Albumin 3.0 L 04/21/20 04/21/20 22:10 22:10 Creatine Kinase 50 L CK-MB (CK-2) 2.68 Troponin I < 0.012 NT-Pro-B Natriuret Pep 2990 H Impressions: Chest/Abdomen CTA 04/22/20 02:07 IMPRESSION: Negative for pulmonary embolus. Small right pleural effusion. Adjacent consolidation. Ascites in the upper abdomen. TECHNICAL DOCUMENTATION: Quality ID # [id number]: Final reports with documentation of one or more dose reduction techniques (e.g., Automated exposure control, adjustment of the mA and/or kV according to patient size, use of iterative reconstruction technique) copyright 2011 [employer]- All Rights Reserved Venous Doppler Study 04/24/20 00:00 IMPRESSION: There is no DVT or SVT in either leg, but the study is limited as described. Chest X-Ray 04/29/20 04:00 IMPRESSION: No acute infiltrates Assessment and Plan - Diagnosis (1) Acute hypoxemic respiratory failure Is this a current diagnosis for this admission?: Yes (2) Acute right-sided CHF (congestive heart failure) Is this a current diagnosis for this admission?: Yes (3) Chronic venous stasis dermatitis of both lower extremities Is this a current diagnosis for this admission?: Yes (4) History of DVT (deep vein thrombosis) Is this a current diagnosis for this admission?: Yes (5) Erythrocytosis due to alveolar hypoventilation Is this a current diagnosis for this admission?: Yes (6) Hypoventilation Is this a current diagnosis for this admission?: Yes (7) Morbid obesity Is this a current diagnosis for this admission?: Yes (8) MARYCRUZ (obstructive sleep apnea) Is this a current diagnosis for this admission?: Yes (9) Chronic passive congestion of liver Is this a current diagnosis for this admission?: Yes (10) Stage III pressure ulcer of left buttock Is this a current diagnosis for this admission?: Yes - Plan Summary Summary: MARYCRUZ (obstructive sleep apnea): Case management has been consulted to investigate outpatient CPAP, pt is self-pay. T2DM (type 2 diabetes mellitus): Hem A1c 6.1, well controlled. Chronic Venous Stasis Lower Extremities: Wound care consulted. (1) Acute hypoxemic respiratory failure Is this a current diagnosis for this admission?: Yes (2) Acute right-sided CHF (congestive heart failure) Is this a current diagnosis for this admission?: Yes (3) Chronic venous stasis dermatitis of both lower extremities Is this a current diagnosis for this admission?: Yes (4) History of DVT (deep vein thrombosis) Is this a current diagnosis for this admission?: Yes (5) Erythrocytosis due to alveolar hypoventilation Is this a current diagnosis for this admission?: Yes (6) Hypoventilation Is this a current diagnosis for this admission?: Yes (7) Morbid obesity Is this a current diagnosis for this admission?: Yes (8) MARYCRUZ (obstructive sleep apnea) Is this a current diagnosis for this admission?: Yes (9) Chronic passive congestion of liver Is this a current diagnosis for this admission?: Yes (10) Stage III pressure ulcer of left buttock Is this a current diagnosis for this admission?: Yes 05/02 This patient was originally admitted to the floor for acute respiratory failure and was initially on BiPAP. It appears that he did get worse and was transferred to the intensive care unit. He was intubated and found to have acute right-sided failure. He was subsequently successfully extubated. Patient was transferred out of the unit on May 01. He is on 6 L of oxygen currently with oxygen saturation of 97% so the plan is to continue to taper him. Patient is morbidly obese. Echocardiogram done revealed largely intact left ventricular function with ejection fraction of 60 to 65% and patient was thought to have an acute right-sided failure currently he is on no Lasix will have to see if he will ultimately require home oxygen Have also requested to follow-up by case management as it is unclear if patient will need a CPAP machine. He said he used 1 years ago and it appears he has been using 1 also since extubation. Patient has also been advised of the need to lose weight. He is currently on no antihypertensive and is also on no Lasix or any other diuretic. His blood pressure is somewhat borderline low. We will continue to monitor and wean off oxygen as tolerated. Patient also mentions that he has nowhere to be discharged to at this time and that is possibly homeless. He said he was living in an RV prior to admission but will not be going back there and he has nowhere else to go. Will await case man agement input 05/03 Patient has no new complaints. He continues to improve. Still on 4 L of oxyge n. Oxygen Saturation is at about 90%. Continue to taper oxygen as tolerated. Social service comments noted. Patient will need a disposition and this is being worked on at this time. Echocardiogram is largely benign except for diastolic dysfunction. He is currently on no diuretic and on no antihypertensive at this time. 05/04/2020 We will recheck laboratory studies tomorrow. Urine is quite concentrated. Will assess renal function. The patient does not have as much of a negative fluid balance as I would expect. Blood pressure can be limiting the use of diuretics. If need be we can utilize midodrine in order to continue diuresis or utilize albumin to improve oncotic pressure and diuresis accordingly. Continue BiPAP for his sleep apnea. At this point stabilization and consideration of bariatric surgery would be ideal however insurance and circumstances are not likely to make this feasible. We will continue to monitor. Continue oxygen supplementation. 05/05/2020 Right-sided heart failure-echocardiogram performed during this admission showed a normal ejection fraction. They could not comment on diastolic dysfunction. It was noted that there was increased right ventricular pressure with ventricular wall hypokinesis and decreased systolic function. The patient was aggressively diuresed in the ICU and is still in a very large negative fluid balance. This is the reason for the concentrated urine. He is not on diuretics at this time. We will continue to monitor intake and output. Acute hypoxic respiratory failure-patient still remains on nasal cannula oxygen. On 5 L nasal cannula appears to be maintaining oxygen saturation greater than 90%. We will try to wean oxygen as tolerated since he is not on oxygen at home. Chronic venous stasis bilateral legs-stable. Continue current treatment. Try to elevate legs when possible. Obesity hypoventilation syndrome-would benefit from significant weight loss. Considerations might include aggressive dieting and bariatric surgery. His BMI is 51.8 today and this puts him at high risk for multiple pathologies including cardiac, pulmonary and infectious. Pressure ulcer buttock-we looked at the patient's buttock and gluteal cleft. There is an ulceration that is rubbing against the opposite buttock that is quite painful. Initial care will be cleansing with wound cleanser and Xeroform to decrease friction. We will continue to assess. At this point offloading pressure and trying to prevent friction against the opposite buttock would be the main goals. Erythrocytosis-patient's hemoglobin is near the upper limit of normal. We will continue to monitor. Obstructive sleep apnea-continue CPAP at night. In light of the patient's echocardiogram and overall status cardiology has agreed to see the patient. After review it is felt that the patient would be best served undergoing cardiac catheterization. Imaging studies in a patient this large are not very sensitive. Dr. Rouse has graciously coordinated with [facility] in [place]. The patient has been accepted for cardiac catheterization. Transport will be on Friday with cardiac catheterization on Friday. I have ordered Covid testing as this will be required prior to transfer. - Time Time Spent with patient: 25-34 minutes Medications reviewed and adjusted accordingly: Yes Anticipated Discharge Disposition: Tertiary Anticipated Discharge Timeframe: within 72 hours
--- NOTE | 2020-05-05 11:51 | PDOC CONSULTATION ---
Consultation Consult Date: 05/05/20 Attending physician:: PANFILO STAPLES Provider Consulted: JESSIKA GALVAN Consult reason:: Right heart failure. History of Present Illness Admission Date/PCP: 04/23/20 02:20 History of Present Illness: MOSES DAILY is a 50 year old male with history of IBS with diarrhea, hypertension, untreated sleep apnea, right-sided CVA, diabetes, tobacco abuse, lower extremity DVT, hypoventilation syndrome who is consulted to our service for further evaluation of right heart failure. The patient had been in his usual state of health until approximately 2 weeks prior to admission when he began noticing severe lower extremity edema and severe dyspnea on exertion. He was admitted to our facility on 04/22/2020 and at that point an echocardiogram demonstrated a preserved LV systolic function with right ventricular failure and right heart failure. Unfortunately the patient deteriorated quickly and a rapid response team was called on 04/23/2020 and the patient was eventually admitted to the ICU where he was intubated. He was fluid overloaded and was treated with a Lasix infusion. He slowly recovered and was transferred back to the floor on 05/02/2020 where he has remained essentially stable from the cardiovascular standpoint. He also has history of premature coronary disease in her mother. Today he has no cardiac complaints and he is laying down on his right side without dyspnea or chest pain. Of note, his net fluid balance since admission is -20 L. Physical exam on 05/05/2020: GENERAL: Morbidly obese. Pleasant and conversational. Oriented x3 with normal mood. Not in acute distress. Well groomed and well developed. HEENT: Normocephalic, atraumatic. Pupils equal. Sclerae anicteric. Oropharynx moist. NECK: Difficult to evaluate for JVD given his body habitus.. No carotid bruits. LUNGS: Clear to auscultation bilaterally. Normal respiratory effort without the use of accessory muscles or intercostal retractions. CARDIOVASCULAR: Regular rate and rhythm, normal S1 and S2 without murmurs, rubs, or gallops. PMI not displaced. ABDOMEN: No masses or tenderness to palpation. No bruit. Difficult to evaluate for organomegaly given his body habitus. No abdominal aorta bruit noted. EXTREMITIES: No edema, no cyanosis, no clubbing. Erythema bilaterally consistent with vascular stasis. SKIN: No lesions or rashes. MUSCULOSKELETAL: No chest tenderness to palpation. NEUROLOGIC: Nonfocal. No gross sensory or motor deficits bilateral upper or lower extremities. Past Medical History Cardiac Medical History: Reports: Hypertension Pulmonary Medical History: Reports: Pneumonia, Sleep Apnea Neurological Medical History: Reports: Ischemic CVA Endocrine Medical History: Reports: Diabetes Mellitus Type 2 GI Medical History: Reports: Other - Irritable bowel disease diarrhea Psychiatric Medical History: Reports: Depression, Tobacco Dependency Past Surgical History Past Surgical History: Reports: None Social History Lives with: Alone Smoking Status: Current Every Day Smoker Frequency of Alcohol Use: None Hx Recreational Drug Use: No Hx Prescription Drug Abuse: No - Advance Directive Resuscitation Status: Full Code Family History Family History: Reviewed & Not Pertinent Parental Family History Reviewed: Yes Children Family History Reviewed: Yes Sibling(s) Family History Reviewed.: Yes Medication/Allergy Home Medications: Unobtainable 04/22/20 Allergies/Adverse Reactions: cinnamon Allergy (Verified 07/13/19 16:32) Physical Exam Vital Signs: Temp Pulse Resp BP Pulse Ox 99.1 F 78 17 105/73 98 05/05/20 08:17 05/05/20 08:17 05/05/20 08:17 05/05/20 08:17 05/05/20 08:17 Intake & Output 05/04/20 05/05/20 05/06/20 06:59 06:59 06:59 Intake Total 1160 Output Total 725 475 Balance 435 -475 Weight 153.5 kg 154.5 kg Results Laboratory Results: 05/05/20 05:27 05/05/20 05:27 05/05/20 05/05/20 05:27 05:27 WBC 5.9 RBC 5.88 H Hgb 16.0 Hct 50.1 MCV 85 MCH 27.1 MCHC 31.8 L RDW 16.2 H Plt Count 197 Seg Neutrophils % 61.5 Sodium 134.9 L Potassium 4.0 Chloride 93 L Carbon Dioxide 36 H Anion Gap 6 BUN 15 Creatinine 0.67 Est GFR ( Amer) > 60 Glucose 102 Calcium 9.0 Magnesium 1.9 Total Bilirubin 1.5 H AST 127 H Alkaline Phosphatase 102 Total Protein 6.4 Albumin 3.0 L 04/21/20 04/21/20 22:10 22:10 Creatine Kinase 50 L CK-MB (CK-2) 2.68 Troponin I < 0.012 NT-Pro-B Natriuret Pep 2990 H Impressions: Chest/Abdomen CTA 04/22/20 02:07 IMPRESSION: Negative for pulmonary embolus. Small right pleural effusion. Adjacent consolidation. Ascites in the upper abdomen. TECHNICAL DOCUMENTATION: Quality ID # [id number]: Final reports with documentation of one or more dose reduction techniques (e.g., Automated exposure control, adjustment of the mA and/or kV according to patient size, use of iterative reconstruction technique) copyright 2011 [employer]- All Rights Reserved Venous Doppler Study 04/24/20 00:00 IMPRESSION: There is no DVT or SVT in either leg, but the study is limited as described. Chest X-Ray 04/29/20 04:00 IMPRESSION: No acute infiltrates 05/05/20 05:27 05/05/20 05:27 MCV 85 fl (80-97) 05/05/20 05:27 MCH 27.1 pg (27.0-33.4) 05/05/20 05:27 MCHC 31.8 g/dL (32.0-36.0) L 05/05/20 05:27 RDW 16.2 % (11.5-14.0) H 05/05/20 05:27 Seg Neutrophils % 61.5 % (42-78) 05/05/20 05:27 Carbonic Acid 1.92 mmol/L (1.05-1.35) H 04/29/20 05:00 HCO3/H2CO3 Ratio 21:1 04/29/20 05:00 ABG pH 7.43 (7.35-7.45) 04/29/20 05:00 ABG pCO2 63.8 mmHg (35-45) H 04/29/20 05:00 ABG pO2 66.6 mmHg (80-100) L 04/29/20 05:00 ABG HCO3 41.5 mmol/L (20-24) H 04/29/20 05:00 ABG O2 Saturation 93.1 % (94-98) L 04/29/20 05:00 ABG Base Excess 13.4 mmol/L 04/29/20 05:00 FiO2 60% 04/29/20 05:00 Chloride 93 mmol/L (98-107) L 05/05/20 05:27 Carbon Dioxide 36 mmol/L (22-30) H 05/05/20 05:27 Anion Gap 6 (5-19) 05/05/20 05:27 Est GFR ( Amer) > 60 (>60) 05/05/20 05:27 Est GFR (Non-Af Amer) Cancelled 04/23/20 04:33 Glucose 102 mg/dL (75-110) 05/05/20 05:27 Calcium 9.0 mg/dL (8.4-10.2) 05/05/20 05:27 Phosphorus 3.7 mg/dL (2.5-4.5) 04/29/20 03:59 Magnesium 1.9 mg/dL (1.6-2.3) 05/05/20 05:27 Total Bilirubin 1.5 mg/dL (0.2-1.3) H 05/05/20 05:27 AST 127 U/L (17-59) H 05/05/20 05:27 Alkaline Phosphatase 102 U/L (38-126) 05/05/20 05:27 Total Protein 6.4 g/dL (6.3-8.2) 05/05/20 05:27 Albumin 3.0 g/dL (3.5-5.0) L 05/05/20 05:27 TSH 8.60 uIU/mL (0.47-4.68) H 04/27/20 04:50 Urine Color STRAW 04/22/20 01:45 Urine Appearance SLIGHTLY-CLOUDY 04/22/20 01:45 Urine pH 5.0 (5.0-9.0) 04/22/20 01:45 Ur Specific [place] 1.004 04/22/20 01:45 Urine Protein NEGATIVE mg/dL (NEGATIVE) 04/22/20 01:45 Urine Glucose (UA) NEGATIVE mg/dL (NEGATIVE) 04/22/20 01:45 Urine Ketones NEGATIVE mg/dL (NEGATIVE) 04/22/20 01:45 Urine Blood MODERATE (NEGATIVE) H 04/22/20 01:45 Urine Nitrite NEGATIVE (NEGATIVE) 04/22/20 01:45 Ur Leukocyte Esterase TRACE (NEGATIVE) H 04/22/20 01:45 Urine WBC (Auto) 1 /HPF 04/22/20 01:45 Urine RBC (Auto) 0 /HPF 04/22/20 01:45 04/21/20 04/21/20 22:10 22:10 Creatine Kinase 50 L CK-MB (CK-2) 2.68 Troponin I < 0.012 NT-Pro-B Natriuret Pep 2990 H Current Medication List Generic Name Dose Route Start Last Admin Trade Name Jodi PRN Reason Stop Dose Admin Acetaminophen 650 mg 05/04/20 15:00 Acetaminophen 325 Mg Tablet PO 05/22/20 02:19 Q4HP PRN Pain or fever Dextrose 12.5 gm 04/23/20 13:51 04/23/20 21:27 Dextrose 50%-Water 25 Gm/50 Ml Disp.Syrin IV 05/23/20 13:50 12.5 gm PRN PRN Administration FOR BG 50-69 IN ALERT PATIENT Protocol Dextrose 25 gm 04/23/20 13:51 Dextrose 50%-Water 25 Gm/50 Ml Disp.Syrin IV 05/23/20 13:50 PRN PRN See Label Comments Protocol Enoxaparin Sodium 40 mg 04/24/20 10:00 05/05/20 09:09 Enoxaparin Sodium Inj 40 Mg/0.4 Ml Disp.Syrin SUBCUT 05/24/20 09:59 Not Given DAILY [facility] Glucagon 1 mg 04/23/20 13:51 Glucagon,Human Recomb 1 Mg Inj SUBCUT 05/23/20 13:50 PRN PRN Evaluate for BG < 70 Protocol Glucose 15 gm 04/23/20 13:51 Dextrose 40% Gel 15 Gm Tube PO 05/23/20 13:50 PRN PRN For BG 50-69 in Alert Patient Protocol Glucose 30 gm 04/23/20 13:51 Dextrose 40% Gel 15 Gm Tube PO 05/23/20 13:50 PRN PRN FOR BG < 50 IN ALERT PATIENT Protocol Hydromorphone HCl 0.5 mg 04/29/20 16:19 04/30/20 06:31 Hydromorphone Hcl Inj/Pf 2 Mg/Ml Ampule IV 05/06/20 16:18 0.5 mg Q2HP PRN Administration PAIN SCALE OF 5 Insulin Human Lispro 0 - 12 unit 04/22/20 08:00 05/05/20 09:07 Insulin Lispro 100 Unit/Ml 3 Ml Vial SUBCUT 05/22/20 07:59 Not Given ACHS MELISSA Protocol Levalbuterol HCl 1.25 mg 05/02/20 13:14 Levalbuterol Hcl Neb 1.25 Mg/3 Ml Ampul NEB 06/01/20 13:13 RTQ4HP PRN WHEEZING Ondansetron HCl 4 mg 04/22/20 02:20 04/29/20 18:17 Ondansetron Hcl Inj/Pf 4 Mg/2 Ml Sdv IV 05/22/20 02:19 4 mg Q4HP PRN Administration FOR NAUSEA/VOMITING Ondansetron HCl 8 mg 05/04/20 15:00 Ondansetron 4 Mg Tab.Rapdis SL 05/22/20 02:19 Q4HP PRN FOR NAUSEA/VOMITING Pantoprazole Sodium 20 mg 05/04/20 06:00 05/05/20 05:44 Pantoprazole Sodium 20 Mg Tablet.Dr PO 06/03/20 05:59 20 mg Q6AM MELISSA Administration Sodium Chloride 2.5 ml 04/23/20 14:00 05/05/20 05:44 Normal Saline Flush 2.5 Ml Disp.Syrin IV 05/23/20 13:59 2.5 ml Q8 MELISSA Administration Discontinued Medications Generic Name Dose Route Start Last Admin Trade Name Freq PRN Reason Stop Dose Admin Acetaminophen 650 mg 04/22/20 02:20 04/26/20 04:28 Acetaminophen 325 Mg Tablet PO 05/22/20 02:19 650 mg Q4HP PRN Administration Pain or fever Acetaminophen 650 mg 04/26/20 11:00 Acetaminophen 325 Mg Tablet NG 05/22/20 02:19 Q4HP PRN Pain or fever Acetazolamide Sodium 500 mg 04/25/20 08:00 04/25/20 17:14 Acetazolamide Sodium Inj 500 Mg Vial IV 04/25/20 18:01 500 mg Q12A MELISSA Administration Albuterol 2.5 mg 04/22/20 12:23 04/22/20 14:12 Albuterol Sulfate 0.083% Neb 2.5 Mg/3 Ml Ampul NEB 04/22/20 12:24 Not Given .PRE/POSTPFT ONE Amino Acid Protein 45 ml 04/25/20 18:00 05/01/20 11:37 Amino Ac/Protein Hydr/Whey Pro 11 Gm/45 Ml Pkt NG 05/25/20 17:59 Not Given BID MELISSA Enoxaparin Sodium 40 mg 04/22/20 10:00 04/23/20 10:32 Enoxaparin Sodium Inj 40 Mg/0.4 Ml Disp.Syrin SUBCUT 05/22/20 09:59 40 mg DAILY MELISSA Administration Etomidate Confirm 04/23/20 16:20 04/23/20 17:58 Etomidate Inj/Pf 20 Mg/10 Ml Sdv Administered 04/23/20 16:21 Not Given Dose 20 mg IV .STK-MED ONE Famotidine 20 mg 04/23/20 14:00 05/03/20 09:38 Famotidine Inj/Pf 20 Mg/2 Ml Sdv IV 05/23/20 13:59 20 mg Q12 MELISSA Administration Furosemide 40 mg 04/22/20 00:34 04/22/20 00:41 Furosemide Inj/Pf 20 Mg/2 Ml Sdv IV 04/22/20 00:35 40 mg NOW ONE Administration Furosemide 40 mg 04/22/20 10:00 04/23/20 10:32 Furosemide Inj/Pf 40 Mg/4 Ml Sdv IV 05/22/20 09:59 40 mg Q12 MELISSA Administration Furosemide Confirm 04/23/20 21:24 04/23/20 23:38 Furosemide Inj/Pf 100 Mg/10 Ml Sdv Administered 04/23/20 21:25 Not Given Dose 100 mg .ROUTE .STK-MED ONE Hydromorphone HCl 2 mg 04/23/20 16:48 04/29/20 14:56 Hydromorphone Hcl Inj/Pf 2 Mg/Ml Ampule IV 04/30/20 16:47 2 mg Q4HP PRN Administration FOR PAIN Propofol Confirm 04/23/20 16:32 04/23/20 17:59 Diprivan Rtu 1000 Mg/100 Ml Inf.Bottle Administered 04/23/20 16:33 Not Given Dose 1,000 mg in 100 mls @ ud IV .STK-MED ONE Propofol 1,000 mg in 100 mls @ 5.346 mls/hr 04/23/20 16:48 04/29/20 11:52 Diprivan Rtu 1000 Mg/100 Ml Inf.Bottle IV 05/23/20 16:47 Infused CONTINUOUS PRN Titration THIS MED IS NOT "PRN" Protocol 5 MCG/KG/MIN Furosemide 250 mg/ Sodium 250 mls @ 5 mls/hr 04/23/20 18:33 04/23/20 22:14 Chloride IV 05/23/20 18:32 5 mg/hr CONTINUOUS PRN 5 mls/hr THIS MED IS NOT "PRN" Administration 5 MG/HR Furosemide 250 mg/ Sodium 250 mls @ 5 mls/hr 04/24/20 06:11 04/29/20 06:10 Chloride IV 05/23/20 18:32 Infused CONTINUOUS PRN Infusion THIS MED IS NOT "PRN" Meropenem 1 gm/ Sodium 50 mls @ 100 mls/hr 04/24/20 14:00 04/30/20 10:50 Chloride IV 05/01/20 13:59 Infused Q12 MELISSA Infusion Propofol 1,000 mg in 100 mls @ 10.692 mls/hr 04/29/20 11:55 05/02/20 07:39 Diprivan Rtu 1000 Mg/100 Ml Inf.Bottle IV 05/23/20 16:47 Infused CONTINUOUS PRN Titration THIS MED IS NOT "PRN" Protocol 10 MCG/KG/MIN Influenza Virus Vaccine Quadrival 0.5 ml 04/23/20 08:00 04/23/20 13:37 Influenza Quad (6mos+) Vac 0.5 Ml Syr IM 04/23/20 08:01 Not Given .ONCE ONE Influenza Virus Vaccine Quadrival 0.5 ml 05/02/20 08:00 Influenza Quad (6mos+) Vac 0.5 Ml Syr IM 05/02/20 08:01 .ONCE ONE Levalbuterol HCl 1.25 mg 04/22/20 02:20 04/22/20 04:59 Levalbuterol Hcl Neb 1.25 Mg/3 Ml Ampul NEB 05/22/20 02:19 1.25 mg RTQ2HP PRN Administration SHORTNESS OF BREATH Levalbuterol HCl 1.25 mg 04/23/20 20:00 05/02/20 18:11 Levalbuterol Hcl Neb 1.25 Mg/3 Ml Ampul NEB 05/23/20 19:59 Not Given RTQ4 MELISSA Midazolam HCl Confirm 04/23/20 21:32 04/23/20 23:38 Midazolam 2 Mg/2 Ml Inj Administered 04/23/20 21:33 Not Given Dose 2 mg .ROUTE .STK-MED ONE Midazolam HCl Confirm 04/23/20 21:53 04/23/20 23:38 Midazolam 2 Mg/2 Ml Inj Administered 04/23/20 21:54 Not Given Dose 2 mg .ROUTE .STK-MED ONE Midazolam HCl 4 mg 04/23/20 23:30 04/23/20 21:32 Midazolam 2 Mg/2 Ml Inj IV 04/23/20 23:31 4 mg NOW ONE Administration Midazolam HCl 4 mg 04/23/20 21:30 04/23/20 21:55 Midazolam 2 Mg/2 Ml Inj IV 04/23/20 21:31 4 mg NOW ONE Administration Nystatin 1 applic 04/22/20 00:35 04/22/20 06:17 Nystatin Topical Powder 15 Gm TP 04/22/20 00:36 Not Given NOW ONE Nystatin 1 applic 04/22/20 10:00 04/28/20 18:13 Nystatin Topical Powder 15 Gm TP 04/29/20 09:59 1 applic BID MELISSA Administration Ondansetron HCl 4 mg 04/22/20 02:20 Ondansetron 4 Mg Tab.Rapdis PO 05/22/20 02:19 Q4HP PRN FOR NAUSEA/VOMITING Ondansetron HCl 8 mg 04/23/20 14:01 Ondansetron 4 Mg Tab.Rapdis PO 05/22/20 02:19 Q4HP PRN FOR NAUSEA/VOMITING Ondansetron HCl 8 mg 04/23/20 18:00 Ondansetron 4 Mg Tab.Rapdis NG 05/22/20 02:19 Q4HP PRN FOR NAUSEA/VOMITING Pharmacy Profile Note 1 each 04/23/20 17:00 Pharmacy Communication Order 05/23/20 16:59 .NOTICE NR Pharmacy Profile Note 1 each 04/26/20 18:00 04/30/20 18:37 Pharmacy Communication Order 05/26/20 17:59 Not Given QPM MELISSA Potassium Chloride 40 meq 04/28/20 14:30 04/28/20 14:23 Potassium Chloride 20 Meq Packet PO 04/28/20 14:31 40 meq NOW ONE Administration Propofol Confirm 04/23/20 16:24 04/23/20 17:58 Propofol Inj 200 Mg/20 Ml Vial Administered 04/23/20 16:25 200 mg Dose Administration 200 mg IV .STK-MED ONE Scopolamine HBr 1 each 04/27/20 19:00 04/28/20 01:27 Scopolamine Hydrobromide 1.5 Mg Patch.Td72 TD 04/27/20 19:01 1 each NOW ONE Administration Scopolamine HBr Confirm 04/28/20 00:31 Scopolamine Hydrobromide 1.5 Mg Patch.Td72 Administered 04/28/20 00:32 Dose 1 each .ROUTE .STK-MED ONE Assessment & Plan - Diagnosis (1) Right heart failure Qualifiers: Heart failure chronicity: acute Qualified Code(s): I50.811 - Acute right heart failure Is this a current diagnosis for this admission?: Yes Plan: 50-year-old male with multiple medical problems and multiple cardiac risk factors for coronary artery disease who has had a very complicated course since admission requiring ICU transfer for acute respiratory failure. He is doing mu ch better however it is my opinion he will need both a right heart catheterization and a left heart catheterization given all his cardiac risk factors and acute, severe episode of heart failure. It is very possible that his heart failure is secondary to his morbid obesity however he does have enough cardiac risk factors as to warrant further assessment. The risks, benefits and alternatives to the procedure were explained to the patient, his questions were answered and he agreed to proceed. Unfortunately the procedure will have to be performed at [facility] as we will not have coverage for the [employer] at this facility next week. Recommendations: -Agree with current medical management to include backing off/discontinue Lasix for now. -I will call [facility] to arrange for transfer. I anticipate the patient staying at this facility over the weekend and transfer him on Friday morning.
--- NOTE | 2020-05-05 13:47 | Progress Note ---
Provider Note Provider Note: The patient has been accepted at [facility] and will be transferred on Friday for [facility] and [facility] in the afternoon.
[2020-05-06] MEDS: PANTOPRAZOLE SODIUM 20 MG TABLET.DR PO SCH (05:08)
[2020-05-06] MEDS: INSULIN LISPRO 100 UNIT/ML 3 ML VIAL SUBCUT SCH ×4 (09:21→21:14)
[2020-05-06] MEDS: ENOXAPARIN SODIUM INJ 40 MG/0.4 ML DISP.SYRIN SUBCUT SCH (09:23)
--- NOTE | 2020-05-06 12:35 | PDOC PROGRESS REPORT ---
Subjective Date:: 05/06/20 Subjective:: The patient is resting comfortably in bed. He has reddened scaly areas on his forehead and on the upper cheeks and across the nose. He states this is from the BiPAP mask. eczema Reason For Visit: NEW ONSET OF CONGESTIVE HEART FAILURE, Physical Exam Vital Signs: Temp Pulse Resp BP Pulse Ox 98.0 F 71 17 102/59 L 94 05/06/20 11:55 05/06/20 11:55 05/06/20 11:55 05/06/20 11:55 05/06/20 12:22 Intake & Output 05/05/20 05/06/20 05/07/20 06:59 06:59 06:59 Intake Total 1134 712 Output Total 475 875 1 Balance -475 259 711 Weight 154.5 kg 152.9 kg Results Laboratory Results: 05/05/20 05:27 05/05/20 05:27 04/21/20 04/21/20 22:10 22:10 Creatine Kinase 50 L CK-MB (CK-2) 2.68 Troponin I < 0.012 NT-Pro-B Natriuret Pep 2990 H Impressions: Chest/Abdomen CTA 04/22/20 02:07 IMPRESSION: Negative for pulmonary embolus. Small right pleural effusion. Adjacent consolidation. Ascites in the upper abdomen. TECHNICAL DOCUMENTATION: Quality ID # [id number]: Final reports with documentation of one or more dose reduction techniques (e.g., Automated exposure control, adjustment of the mA and/or kV according to patient size, use of iterative reconstruction technique) copyright 2011 [employer]- All Rights Reserved Venous Doppler Study 04/24/20 00:00 IMPRESSION: There is no DVT or SVT in either leg, but the study is limited as described. Chest X-Ray 04/29/20 04:00 IMPRESSION: No acute infiltrates Assessment and Plan - Diagnosis (1) Acute hypoxemic respiratory failure Is this a current diagnosis for this admission?: Yes (2) Acute right-sided CHF (congestive heart failure) Is this a current diagnosis for this admission?: Yes (3) Chronic venous stasis dermatitis of both lower extremities Is this a current diagnosis for this admission?: Yes (4) History of DVT (deep vein thrombosis) Is this a current diagnosis for this admission?: Yes (5) Erythrocytosis due to alveolar hypoventilation Is this a current diagnosis for this admission?: Yes (6) Hypoventilation Is this a current diagnosis for this admission?: Yes (7) Morbid obesity Is this a current diagnosis for this admission?: Yes (8) MARYCRUZ (obstructive sleep apnea) Is this a current diagnosis for this admission?: Yes (9) Chronic passive congestion of liver Is this a current diagnosis for this admission?: Yes (10) Stage III pressure ulcer of left buttock Is this a current diagnosis for this admission?: Yes (11) Contact dermatitis Qualifiers: Contact dermatitis type: irritant Contact dermatitis trigger: other trigger Qualified Code(s): L24.89 - Irritant contact dermatitis due to other agents; L24.8 - Irritant contact dermatitis due to other agents Is this a current diagnosis for this admission?: Yes - Plan Summary Summary: Slowly MARYCRUZ (obstructive sleep apnea): Case management has been consulted to investigate outpatient CPAP, pt is self-pay. T2DM (type 2 diabetes mellitus): Hem A1c 6.1, well controlled. Chronic Venous Stasis Lower Extremities: Wound care consulted. (1) Acute hypoxemic respiratory failure (2) Acute right-sided CHF (congestive heart failure) (3) Chronic venous stasis dermatitis of both lower extremities (4) History of DVT (deep vein thrombosis) (5) Erythrocytosis due to alveolar hypoventilation (6) Hypoventilation (7) Morbid obesity (8) MARYCRUZ (obstructive sleep apnea) (9) Chronic passive congestion of liver (10) Stage III pressure ulcer of left buttock (11) contact dermatitis 05/02 This patient was originally admitted to the floor for acute respiratory failure and was initially on BiPAP. It appears that he did get worse and was transferred to the intensive care unit. He was intubated and found to have acute right-sided failure. He was subsequently successfully extubated. Patient was transferred out of the unit on May 01. He is on 6 L of oxygen currently with oxygen saturation of 97% so the plan is to continue to taper him. Patient is morbidly obese. Echocardiogram done revealed largely intact left ventricular function with ejection fraction of 60 to 65% and patient was thought to have an acute right-sided failure currently he is on no Lasix will have to see if he will ultimately require home oxygen Have also requested to follow-up by case management as it is unclear if patient will need a CPAP machine. He said he used 1 years ago and it appears he has been using 1 also since extubation. Patient has also been advised of the need to lose weight. He is currently on no antihypertensive and is also on no Lasix or any other diuretic. His blood pressure is somewhat borderline low. We will continue to monitor and wean off oxygen as tolerated. Patient also mentions that he has nowhere to be discharged to at this time and that is possibly homeless. He said he was living in an RV prior to admission but will not be going back there and he has nowhere else to go. Will await case management input 05/03 Patient has no new complaints. He continues to improve. Still on 4 L of oxygen. Oxygen Saturation is at about 90%. Continue to taper oxygen as tolerated. Social service comments noted. Patient will need a disposition and this is being worked on at this time. Echocardiogram is largely benign except for diastolic dysfunction. He is currently on no diuretic and on no antihypertensive at this time. 05/04/2020 We will recheck laboratory studies tomorrow. Urine is quite concentrated. Will assess renal function. The patient does not have as much of a negative fluid balance as I would expect. Blood pressure can be limiting the use of diuretics. If need be we can utilize midodrine in order to continue diuresis or utilize albumin to improve oncotic pressure and diuresis accordingly. Continue BiPAP for his sleep apnea. At this point stabilization and consideration of bariatric surgery would be ideal however insurance and circumstances are not likely to make this feasible. We will continue to monitor. Continue oxygen supplementation. 05/05/2020 Right-sided heart failure-echocardiogram performed during this admission showed a normal ejection fraction. They could not comment on diastolic dysfunction. It was noted that there was increased right ventricular pressure with ventricular wall hypokinesis and decreased systolic function. The patient was aggressively diuresed in the ICU and is still in a very large negative fluid balance. This is the reason for the concentrated urine. He is not on diuretics at this time. We will continue to monitor intake and output. Acute hypoxic respiratory failure-patient still remains on nasal cannula oxygen. On 5 L nasal cannula appears to be maintaining oxygen saturation greater than 90%. We will try to wean oxygen as tolerated since he is not on oxygen at home. Chronic venous stasis bilateral legs-stable. Continue current treatment. Try to elevate legs when possible. Obesity hypoventilation syndrome-would benefit from significant weight loss. Considerations might include aggressive dieting and bariatric surgery. His BMI is 51.8 today and this puts him at high risk for multiple pathologies including cardiac, pulmonary and infectious. Pressure ulcer buttock-we looked at the patient's buttock and gluteal cleft. There is an ulceration that is rubbing against the opposite buttock that is qu ite painful. Initial care will be cleansing with wound cleanser and Xeroform to decrease friction. We will continue to assess. At this point offloading pressure and trying to prevent friction against the opposite buttock would be the main goals. Erythrocytosis-patient's hemoglobin is near the upper limit of normal. We will continue to monitor. Obstructive sleep apnea-continue CPAP at night. In light of the patient's echocardiogram and overall status cardiology has agreed to see the patient. After review it is felt that the patient would be best served undergoing cardiac catheterization. Imaging studies in a patient this large are not very sensitive. Dr. Rouse has graciously coordinated with [facility] in [place]. The patient has been accepted for cardiac catheterization. Transport will be on Friday with cardiac catheterization on Friday. I have ordered Covid testing as this will be required prior to transfer. Addendum Passive congestion of the liver-the patient has elevated transaminases and bilirubin. This is in part related to passive congestion with his right heart failure. Continue to monitor. 05/06/2020 Patient is resting comfortably. Rechecking Covid status in anticipation of procedure at [facility]. Acute hypoxic respiratory failure-weaning from oxygen. Is down to 2.5 L and maintaining saturations in the mid 90s. Right-sided heart failure-off of diuretics has had a massive negative fluid balance. Continue to monitor closely. Obesity hypoventilation-we will try to continue to wean from oxygen. Would need significant weight loss to benefit multiple comorbidities. Obstructive sleep apnea-continue CPAP at night Contact dermatitis-on the face from CPAP mask. We will utilize hydrocortisone cream Erythrocytosis-secondary to chronic hypoxia Passive congestion-elevated LFTs from passive congestion of the liver. We will recheck chemistries tomorrow. Pressure ulcer of the buttock-continue current dressings. Repeat wound care consult. Stasis dermatitis-improved with marked diuresis. - Time Time Spent with patient: 15-24 minutes Medications reviewed and adjusted accordingly: Yes Anticipated Discharge Disposition: Tertiary Anticipated Discharge Timeframe: within 72 hours
[2020-05-06] MEDS: HYDROCORTISONE 1% CREAM 28.35 GM TP SCH ×3 (16:36→21:45)
[2020-05-07] MEDS: PANTOPRAZOLE SODIUM 20 MG TABLET.DR PO SCH (05:11)
[2020-05-07] MEDS: INSULIN LISPRO 100 UNIT/ML 3 ML VIAL SUBCUT SCH ×4 (08:39→21:56)
[2020-05-07] MEDS: ENOXAPARIN SODIUM INJ 40 MG/0.4 ML DISP.SYRIN SUBCUT SCH (10:28)
[2020-05-07] MEDS: HYDROCORTISONE 1% CREAM 28.35 GM TP SCH ×2 (10:37→22:06)
--- NOTE | 2020-05-07 11:32 | PDOC PROGRESS REPORT ---
Subjective Date:: 05/07/20 Subjective:: The patient is resting in bed listening to music on his earbuds. He is in no di stress. He has no complaints. He did have several questions about the expected catheterization on Friday. Reason For Visit: NEW ONSET OF CONGESTIVE HEART FAILURE, Physical Exam Vital Signs: Temp Pulse Resp BP Pulse Ox 98.9 F 66 14 91/61 L 97 05/07/20 08:26 05/07/20 08:27 05/07/20 08:26 05/07/20 08:27 05/07/20 08:27 Intake & Output 05/06/20 05/07/20 05/08/20 06:59 06:59 06:59 Intake Total 1134 1557 Output Total 875 Balance 259 1557 Weight 152.9 kg 152.7 kg General appearance: PRESENT: no acute distress, morbidly obese, well-developed Head exam: PRESENT: atraumatic, normocephalic Eye exam: PRESENT: conjunctiva pink. ABSENT: scleral icterus Ear exam: PRESENT: normal external ear exam. ABSENT: bleeding, drainage Respiratory exam: PRESENT: clear to auscultation esther, symmetrical, unlabored. ABSENT: rales, rhonchi, tachypnea, wheezes Cardiovascular exam: PRESENT: RRR, +S1, +S2. ABSENT: bradycardia, diastolic murmur, irregular rhythm, systolic murmur, tachycardia GI/Abdominal exam: PRESENT: soft, other - Protuberant abdomen. ABSENT: tenderness Rectal exam: PRESENT: deferred Gentrourinary exam: ABSENT: indwelling catheter Extremities exam: PRESENT: +2 edema Musculoskeletal exam: ABSENT: deformity, dislocation Neurological exam: PRESENT: alert, awake, oriented to person, oriented to place, oriented to time, oriented to situation, CN II-XII grossly intact. ABSENT: altered Psychiatric exam: PRESENT: appropriate affect. ABSENT: agitated, anxious Focused psych exam: ABSENT: delusional, paranoid, restlessness Skin exam: PRESENT: dry, normal color, warm. ABSENT: rash Results Laboratory Results: 05/05/20 05:27 05/05/20 05:27 04/21/20 04/21/20 22:10 22:10 Creatine Kinase 50 L CK-MB (CK-2) 2.68 Troponin I < 0.012 NT-Pro-B Natriuret Pep 2990 H Impressions: Chest/Abdomen CTA 04/22/20 02:07 IMPRESSION: Negative for pulmonary embolus. Small right pleural effusion. Adjacent consolidation. Ascites in the upper abdomen. TECHNICAL DOCUMENTATION: Quality ID # [id number]: Final reports with documentation of one or more dose reduction techniques (e.g., Automated exposure control, adjustment of the mA and/or kV according to patient size, use of iterative reconstruction technique) copyright 2011 [employer]- All Rights Reserved Venous Doppler Study 04/24/20 00:00 IMPRESSION: There is no DVT or SVT in either leg, but the study is limited as described. Chest X-Ray 04/29/20 04:00 IMPRESSION: No acute infiltrates Assessment and Plan - Diagnosis (1) Acute hypoxemic respiratory failure Is this a current diagnosis for this admission?: Yes (2) Acute right-sided CHF (congestive heart failure) Is this a current diagnosis for this admission?: Yes (3) Chronic venous stasis dermatitis of both lower extremities Is this a current diagnosis for this admission?: Yes (4) History of DVT (deep vein thrombosis) Is this a current diagnosis for this admission?: Yes (5) Erythrocytosis due to alveolar hypoventilation Is this a current diagnosis for this admission?: Yes (6) Hypoventilation Is this a current diagnosis for this admission?: Yes (7) Morbid obesity Is this a current diagnosis for this admission?: Yes (8) MARYCRUZ (obstructive sleep apnea) Is this a current diagnosis for this admission?: Yes (9) Chronic passive congestion of liver Is this a current diagnosis for this admission?: Yes (10) Stage III pressure ulcer of left buttock Is this a current diagnosis for this admission?: Yes (11) Contact dermatitis Qualifiers: Contact dermatitis type: irritant Contact dermatitis trigger: other trigger Qualified Code(s): L24.89 - Irritant contact dermatitis due to other agents; L24.8 - Irritant contact dermatitis due to other agents Is this a current diagnosis for this admission?: Yes - Plan Summary Summary: Slowly MARYCRUZ (obstructive sleep apnea): Case management has been consulted to investigate outpatient CPAP, pt is self-pay. T2DM (type 2 diabetes mellitus): Hem A1c 6.1, well controlled. Chronic Venous Stasis Lower Extremities: Wound care consulted. (1) Acute hypoxemic respiratory failure (2) Acute right-sided CHF (congestive heart failure) (3) Chronic venous stasis dermatitis of both lower extremities (4) History of DVT (deep vein thrombosis) (5) Erythrocytosis due to alveolar hypoventilation (6) Hypoventilation (7) Morbid obesity (8) MARYCRUZ (obstructive sleep apnea) (9) Chronic passive congestion of liver (10) Stage III pressure ulcer of left buttock (11) contact dermatitis 05/02 This patient was originally admitted to the floor for acute respiratory failure and was initially on BiPAP. It appears that he did get worse and was transferred to the intensive care unit. He was intubated and found to have acute right-sided failure. He was subsequently successfully extubated. Patient was transferred out of the unit on May 01. He is on 6 L of oxygen currently with oxygen saturation of 97% so the plan is to continue to taper him. Patient is morbidly obese. Echocardiogram done revealed largely intact left ventricular function with ejection fraction of 60 to 65% and patient was thought to have an acute right-sided failure currently he is on no Lasix will have to see if he will ultimately require home oxygen Have also requested to follow-up by case management as it is unclear if patient will need a CPAP machine. He said he used 1 years ago and it appears he has been using 1 also since extubation. Patient has also been advised of the need to lose weight. He is currently on no antihypertensive and is also on no Lasix or any other diuretic. His blood pressure is somewhat borderline low. We will continue to monitor and wean off oxygen as tolerated. Patient also mentions that he has nowhere to be discharged to at this time and that is possibly homeless. He said he was living in an prior to admission but will not be going back there and he has nowhere else to go. Will await case management input 05/03 Patient has no new complaints. He continues to improve. Still on 4 L of oxygen. Oxygen Saturation is at about 90%. Continue to taper oxygen as tolerated. Social service comments noted. Patient will need a disposition and this is being worked on at this time. Echocardiogram is largely benign except for diastolic dysfunction. He is currently on no diuretic and on no antihypertensive at this time. 05/04/2020 We will recheck laboratory studies tomorrow. Urine is quite concentrated. Will assess renal function. The patient does not have as much of a negative fluid balance as I would expect. Blood pressure can be limiting the use of diuretics. If need be we can utilize midodrine in order to continue diuresis or utilize albumin to improve oncotic pressure and diuresis accordingly. Continue BiPAP for his sleep apnea. At this point stabilization and consideration of bariatric surgery would be ideal however insurance and circumstances are not likely to make this feasible. We will continue to monitor. Continue oxygen supplementation. 05/05/2020 Right-sided heart failure-echocardiogram performed during this admission showed a normal ejection fraction. They could not comment on diastolic dysfunction. It was noted that there was increased right ventricular pressure with ventricular wall hypokinesis and decreased systolic function. The patient was aggressively diuresed in the ICU and is still in a very large negative fluid balance. This is the reason for the concentrated urine. He is not on diuretics at this time. We will continue to monitor intake and output. Acute hypoxic respiratory failure-patient still remains on nasal cannula oxygen. On 5 L nasal cannula appears to be maintaining oxygen saturation greater than 90%. We will try to wean oxygen as tolerated since he is not on oxygen at home. Chronic venous stasis bilateral legs-stable. Continue current treatment. Try to elevate legs when possible. Obesity hypoventilation syndrome-would benefit from significant weight loss. Considerations might include aggressive dieting and bariatric surgery. His BMI is 51.8 today and this puts him at high risk for multiple pathologies including cardiac, pulmonary and infectious. Pressure ulcer buttock-we looked at the patient's buttock and gluteal cleft. There is an ulceration that is rubbing against the opposite buttock that is quite painful. Initial care will be cleansing with wound cleanser and Xeroform to decrease friction. We will continue to assess. At this point offloading pressure and trying to prevent friction against the opposite buttock would be the main goals. Erythrocytosis-patient's hemoglobin is near the upper limit of normal. We will continue to monitor. Obstructive sleep apnea-continue CPAP at night. In light of the patient's echocardiogram and overall status cardiology has agreed to see the patient. After review it is felt that the patient would be best served undergoing cardiac catheterization. Imaging studies in a patient this large are not very sensitive. Dr. Rouse has graciously coordinated with [facility] in [place]. The patient has been accepted for cardiac catheterization. Transport will be on Friday with cardiac catheterization on Friday. I have ordered Covid testing as this will be required prior to transfer. Addendum Passive congestion of the liver-the patient has elevated transaminases and bilirubin. This is in part related to passive congestion with his right heart failure. Continue to monitor. 05/06/2020 Patient is resting comfortably. Rechecking Covid status in anticipation of procedure at [facility]. Acute hypoxic respiratory failure-weaning from oxygen. Is down to 2.5 L and maintaining saturations in the mid 90s. Right-sided heart failure-off of diuretics has had a massive negative fluid balance. Continue to monitor closely. Obesity hypoventilation-we will try to continue to wean from oxygen. Would need significant weight loss to benefit multiple comorbidities. Obstructive sleep apnea-continue CPAP at night Contact dermatitis-on the face from CPAP mask. We will utilize hydrocortisone cream Erythrocytosis-secondary to chronic hypoxia Passive congestion-elevated LFTs from passive congestion of the liver. We will recheck chemistries tomorrow. Pressure ulcer of the buttock-continue current dressings. Repeat wound care consult. Stasis dermatitis-improved with marked diuresis. 05/07/2020 Patient is resting. No discomfort. Acute hypoxic respiratory failure-currently on 2 L nasal cannula and maintaining good saturations. Continue to try and taper to room air. Right-sided heart failure-patient will be getting cardiac catheterization at [facility] on Friday. Likely for right and left heart cath. Continue current medication regimen. Obesity hypoventilation-continue CPAP at night and oxygen taper. Obstructive sleep apnea-the patient needs a sleep study as an outpatient as he is benefiting from CPAP in the hospital. Erythrocytosis-we will possibly improve with improved oxygenation Pressure ulcer of buttock-no change in treatment plan Stasis dermatitis-we will continue to improve with weight loss. Morbid obesity-BMI 51.2 In discussing his schedule procedure and comorbidities the patient realizes that in order to have any longevity he must lose a serious amount of weight. I explained that the benefits will be tremendous including his breathing, sleep apnea and strain on his heart. He verbalizes that he is very determined to lose weight as he does not want to experience repeated hospitalizations and incap acitating chronic illness. - Time Time Spent with patient: 15-24 minutes Medications reviewed and adjusted accordingly: Yes Anticipated Discharge Disposition: Tertiary Anticipated Discharge Timeframe: within 24 hours
[2020-05-08] MEDS: PANTOPRAZOLE SODIUM 20 MG TABLET.DR PO SCH (05:58)
--- NOTE | 2020-05-08 08:38 | PDOC TRANSFER SUMMARY ---
General Admission Date/PCP: 04/23/20 02:20 Admission Date: 04/23/20 Transfer Date: 05/08/20 [facility] Accepting Physician: Dr. Frazier Resuscitation Status: Full Code - Transfer Diagnosis (1) Acute hypoxemic respiratory failure Is this a current diagnosis for this admission?: Yes (2) Acute right-sided CHF (congestive heart failure) Is this a current diagnosis for this admission?: Yes (3) Chronic venous stasis dermatitis of both lower extremities Is this a current diagnosis for this admission?: Yes (4) History of DVT (deep vein thrombosis) Is this a current diagnosis for this admission?: Yes (5) Erythrocytosis due to alveolar hypoventilation Is this a current diagnosis for this admission?: Yes (6) Hypoventilation Is this a current diagnosis for this admission?: Yes (7) Morbid obesity Is this a current diagnosis for this admission?: Yes (8) MARYCRUZ (obstructive sleep apnea) Is this a current diagnosis for this admission?: Yes (9) Chronic passive congestion of liver Is this a current diagnosis for this admission?: Yes (10) Stage III pressure ulcer of left buttock Is this a current diagnosis for this admission?: Yes (11) Contact dermatitis Is this a current diagnosis for this admission?: Yes - Transfer Medications Transfer Medications: Current Medications Acetaminophen (Acetaminophen 325 Mg Tablet) 650 mg PO Q4HP PRN PRN Reason: Pain or fever Stop: 05/22/20 02:19 Dextrose (Dextrose 50%-Water 25 Gm/50 Ml Disp.Syrin) 12.5 gm IV PRN PRN; Protocol PRN Reason: FOR BG 50-69 IN ALERT PATIENT Stop: 05/23/20 13:50 Last Admin: 04/23/20 21:27 Dose: 12.5 gm Documented by: Dextrose (Dextrose 50%-Water 25 Gm/50 Ml Disp.Syrin) 25 gm IV PRN PRN; Protocol PRN Reason: See Label Comments Stop: 05/23/20 13:50 Enoxaparin Sodium (Enoxaparin Sodium Inj 40 Mg/0.4 Ml Disp.Syrin) 40 mg SUBCUT DAILY MELISSA Stop: 05/24/20 09:59 Last Admin: 05/07/20 10:28 Dose: 40 mg Documented by: Glucagon (Glucagon,Human Recomb 1 Mg Inj) 1 mg SUBCUT PRN PRN; Protocol PRN Reason: Evaluate for BG < 70 Stop: 05/23/20 13:50 Glucose (Dextrose 40% Gel 15 Gm Tube) 15 gm PO PRN PRN; Protocol PRN Reason: For BG 50-69 in Alert Patient Stop: 05/23/20 13:50 Glucose (Dextrose 40% Gel 15 Gm Tube) 30 gm PO PRN PRN; Protocol PRN Reason: FOR BG < 50 IN ALERT PATIENT Stop: 05/23/20 13:50 Hydrocortisone (Hydrocortisone 1% Cream 28.35 Gm) 1 applic TP Q12 [facility] Stop: 06/05/20 13:59 Last Admin: 05/07/20 22:06 Dose: 1 applic Documented by: Insulin Human Lispro (Insulin Lispro 100 Unit/Ml 3 Ml Vial) 0 - 12 unit SUBCUT [facility]; Protocol Stop: 05/22/20 07:59 Last Admin: 05/07/20 21:56 Dose: Not Given Documented by: Levalbuterol HCl (Levalbuterol Hcl Neb 1.25 Mg/3 Ml Ampul) 1.25 mg NEB RTQ4HP PRN PRN Reason: WHEEZING Stop: 06/01/20 13:13 Ondansetron HCl (Ondansetron Hcl Inj/Pf 4 Mg/2 Ml Sdv) 4 mg IV Q4HP PRN PRN Reason: FOR NAUSEA/VOMITING Stop: 05/22/20 02:19 Last Admin: 04/29/20 18:17 Dose: 4 mg Documented by: Ondansetron HCl (Ondansetron 4 Mg Tab.Rapdis) 8 mg SL Q4HP PRN PRN Reason: FOR NAUSEA/VOMITING Stop: 05/22/20 02:19 Pantoprazole Sodium (Pantoprazole Sodium 20 Mg Tablet.Dr) 20 mg PO Q6AM [facility] Stop: 06/03/20 05:59 Last Admin: 05/08/20 05:58 Dose: 20 mg Documented by: Sodium Chloride (Normal Saline Flush 2.5 Ml Disp.Syrin) 2.5 ml IV Q8 [facility] Stop: 05/23/20 13:59 Last Admin: 05/08/20 05:58 Dose: 2.5 ml Documented by: - Allergies Allergies/Adverse Reactions: cinnamon Allergy (Verified 07/13/19 16:32) - Diet/Activity Discharge Diet: Cardiac, Diabetic Discharge Activity: Activity As Tolerated, Other - Considered cardiac rehab based on catheterization results Hospital Course Hospital Course: (1) Acute hypoxemic respiratory failure (2) Acute right-sided CHF (congestive heart failure) (3) Chronic venous stasis dermatitis of both lower extremities (4) History of DVT (deep vein thrombosis) (5) Erythrocytosis due to alveolar hypoventilation (6) Hypoventilation (7) Morbid obesity (8) MARYCRUZ (obstructive sleep apnea) (9) Chronic passive congestion of liver (10) Stage III pressure ulcer of left buttock (11) contact dermatitis 05/02 This patient was originally admitted to the floor for acute respiratory failure and was initially on BiPAP. It appears that he did get worse and was transferred to the intensive care unit. He was intubated and found to have acute right-sided failure. He was subsequently successfully extubated. Patient was transferred out of the unit on May 01. He is on 6 L of oxygen currently with oxygen saturation of 97% so the plan is to continue to taper him. Patient is morbidly obese. Echocardiogram done revealed largely intact left ventricular function with ejection fraction of 60 to 65% and patient was thought to have an acute right-sided failure currently he is on no Lasix will have to see if he will ultimately require home oxygen Have also requested to follow-up by case management as it is unclear if patient will need a CPAP machine. He said he used 1 years ago and it appears he has been using 1 also since extubation. Patient has also been advised of the need to lose weight. He is currently on no antihypertensive and is also on no Lasix or any other diuretic. His blood pressure is somewhat borderline low. We will continue to monitor and wean off oxygen as tolerated. Patient also mentions that he has nowhere to be discharged to at this time and that is possibly homeless. He said he was living in an prior to admission but will not be going back there and he has nowhere else to go. Will await case management input 05/03 Patient has no new complaints. He continues to improve. Still on 4 L of oxygen. Oxygen Saturation is at about 90%. Continue to taper oxygen as tolerated. Social service comments noted. Patient will need a disposition and this is being worked on at this time. Echocardiogram is largely benign except for diastolic dysfunction. He is currently on no diuretic and on no antihypertensive at this time. 05/04/2020 We will recheck laboratory studies tomorrow. Urine is quite concentrated. Will assess renal function. The patient does not have as much of a negative fluid balance as I would expect. Blood pressure can be limiting the use of diuretics. If need be we can utilize midodrine in order to continue diuresis or utilize albumin to improve oncotic pressure and diuresis accordingly. Continue BiPAP for his sleep apnea. At this point stabilization and consideration of bariatric surgery would be ideal however insurance and circumstances are not likely to make this feasible. We will continue to monitor. Continue oxygen supplementation. 05/05/2020 Right-sided heart failure-echocardiogram performed during this admission showed a normal ejection fraction. They could not comment on diastolic dysfunction. It was noted that there was increased right ventricular pressure with ventricular wall hypokinesis and decreased systolic function. The patient was aggressively diuresed in the ICU and is still in a very large negative fluid balance. This is the reason for the concentrated urine. He is not on diuretics at this time. We will continue to monitor intake and output. Acute hypoxic respiratory failure-patient still remains on nasal cannula oxygen. On 5 L nasal cannula appears to be maintaining oxygen saturation greater than 90%. We will try to wean oxygen as tolerated since he is not on oxygen at home. Chronic venous stasis bilateral legs-stable. Continue current treatment. Try to elevate legs when possible. Obesity hypoventilation syndrome-would benefit from significant weight loss. Considerations might include aggressive dieting and bariatric surgery. His BMI is 51.8 today and this puts him at high risk for multiple pathologies including cardiac, pulmonary and infectious. Pressure ulcer buttock-we looked at the patient's buttock and gluteal cleft. There is an ulceration that is rubbing against the opposite buttock that is quite painful. Initial care will be cleansing with wound cleanser and Xeroform to decrease friction. We will continue to assess. At this point offloading pressure and trying to prevent friction against the opposite buttock would be the main goals. Erythrocytosis-patient's hemoglobin is near the upper limit of normal. We will continue to monitor. Obstructive sleep apnea-continue CPAP at night. In light of the patient's echocardiogram and overall status cardiology has agreed to see the patient. After review it is felt that the patient would be best served undergoing cardiac catheterization. Imaging studies in a patient this large are not very sensitive. Dr. Rouse has graciously coordinated with [facility] in [place]. The patient has been accepted for cardiac catheterization. Transport will be on Friday with cardiac catheterization on Friday. I have ordered Covid testing as this will be required prior to transfer. Addendum Passive congestion of the liver-the patient has elevated transaminases and bilirubin. This is in part related to passive congestion with his right heart failure. Continue to monitor. 05/06/2020 Patient is resting comfortably. Rechecking Covid status in [facility]. Acute hypoxic respiratory failure-weaning from oxygen. Is down to 2.5 L and maintaining saturations in the mid 90s. Right-sided heart failure-off of diuretics has had a massive negative fluid balance. Continue to monitor closely. Obesity hypoventilation-we will try to continue to wean from oxygen. Would need significant weight loss to benefit multiple comorbidities. Obstructive sleep apnea-continue CPAP at night Contact dermatitis-on the face from CPAP mask. We will utilize hydrocortisone cream Erythrocytosis-secondary to chronic hypoxia Passive congestion-elevated LFTs from passive congestion of the liver. We will recheck chemistries tomorrow. Pressure ulcer of the buttock-continue current dressings. Repeat wound care consult. Stasis dermatitis-improved with marked diuresis. 05/07/2020 Patient is resting. No discomfort. Acute hypoxic respiratory failure-currently on 2 L nasal cannula and maintaining good saturations. Continue to try and taper to room air. Right-sided heart failure-patient will be getting cardiac catheter[facility] Friday. Likely for right and left heart cath. Continue current medication regimen. Obesity hypoventilation-continue CPAP at night and oxygen taper. Obstructive sleep apnea-the patient needs a sleep study as an outpatient as he is benefiting from CPAP in the hospital. Erythrocytosis-we will possibly improve with improved oxygenation Pressure ulcer of buttock-no change in treatment plan Stasis dermatitis-we will continue to improve with weight loss. Morbid obesity-BMI 51.2 In discussing his schedule procedure and comorbidities the patient realizes that in order to have any longevity he must lose a serious amount of weight. I explained that the benefits will be tremendous including his breathing, sleep apnea and strain on his heart. He verbalizes that he is very determined to lose weight as he does not want to experience repeated hospitalizations and incap acitating chronic illness. 05/08/2020 Dr. Frazier contacted [facility] We will perform cardiac catheterization today Patient is stable with no changes from yesterday Hospitalization details as above Physical Exam Vital Signs: Temp Pulse Resp BP Pulse Ox 97.6 F 78 13 103/61 97 05/08/20 04:11 05/08/20 04:11 05/08/20 04:30 05/08/20 04:11 05/08/20 04:30 Intake & Output 05/07/20 05/08/20 05/09/20 06:59 06:59 06:59 Intake Total 1557 1076 Output Total 0 Balance 1557 1076 Weight 152.7 kg 154.3 kg General appearance: PRESENT: no acute distress, cooperative, morbidly obese, well-developed Head exam: PRESENT: atraumatic, normocephalic Eye exam: PRESENT: conjunctiva pink, EOMI. ABSENT: scleral icterus Ear exam: PRESENT: normal external ear exam. ABSENT: bleeding, drainage Mouth exam: PRESENT: moist, tongue midline Respiratory exam: PRESENT: rales - Faint at bases probable atelectasis, symmetrical, unlabored. ABSENT: rhonchi, tachypnea, wheezes Cardiovascular exam: PRESENT: RRR, +S1, +S2. ABSENT: bradycardia, diastolic murmur, irregular rhythm, systolic murmur, tachycardia GI/Abdominal exam: PRESENT: normal bowel sounds, soft, other - Pendulous abdomen. ABSENT: tenderness Rectal exam: PRESENT: deferred Gentrourinary exam: ABSENT: indwelling catheter Extremities exam: PRESENT: +2 edema - Chronic lower extremity edema Musculoskeletal exam: PRESENT: ambulatory. ABSENT: deformity, dislocation Neurological exam: PRESENT: alert, awake, oriented to person, oriented to place, oriented to time, oriented to situation, CN II-XII grossly intact. ABSENT: altered, motor sensory deficit Psychiatric exam: PRESENT: appropriate affect. ABSENT: agitated, anxious Focused psych exam: ABSENT: delusional, paranoid, restlessness Skin exam: PRESENT: dry, warm, other - Chronic pigment deposition secondary stasis dermatitis and chronic lymphedema lower legs Results Laboratory Results: 05/05/20 05:27 05/05/20 05:27 04/21/20 04/21/20 22:10 22:10 Creatine Kinase 50 L CK-MB (CK-2) 2.68 Troponin I < 0.012 NT-Pro-B Natriuret Pep 2990 H Impressions: Chest/Abdomen CTA 04/22/20 02:07 IMPRESSION: Negative for pulmonary embolus. Small right pleural effusion. Adjacent consolidation. Ascites in the upper abdomen. TECHNICAL DOCUMENTATION: Quality ID # [id number]: Final reports with documentation of one or more dose reduction techniques (e.g., Automated exposure control, adjustment of the mA and/or kV according to patient size, use of iterative reconstruction technique) copyright 2011 [employer]- All Rights Reserved Venous Doppler Study 04/24/20 00:00 IMPRESSION: There is no DVT or SVT in either leg, but the study is limited as described. Chest X-Ray 04/29/20 04:00 IMPRESSION: No acute infiltrates Plan Discharge Plan: . Subsequent treatment based on catheterization results. [facility] Time Spent: Greater than 30 Minutes
[2020-05-08 09:11] VITALS: BP 119/62
[2020-05-08] MEDS: ENOXAPARIN SODIUM INJ 40 MG/0.4 ML DISP.SYRIN SUBCUT SCH (09:45)
[2020-05-08] MEDS: INSULIN LISPRO 100 UNIT/ML 3 ML VIAL SUBCUT SCH (09:48)
== END 2020-05-08 10:15 | disposition short-term general hospital (02) | DRG 207 ==
LOC: ER 21:36 → EH 04-22 01:10 → 4N 04-22 03:58 → OBSVTOIN 04-23 02:20 → EH 04-23 13:15 → ICU 04-23 16:12 → EH 04-28 03:15 → 3S 05-01 14:22
PROVIDERS: ADMIT Anesthesiology; ATTEND Hospitalist
PROC: 0BH17EZ Insertion of Endotracheal Airway into Trachea, Via Natural or Artificial Opening (ICD-10-PCS; principal; 2020-04-23)
PROC: 5A1955Z Respiratory Ventilation, Greater than 96 Consecutive Hours (ICD-10-PCS; 2020-04-23)
DX: J96.01 Acute respiratory failure with hypoxia (principal); L89.323 Pressure ulcer of left buttock, stage 3; I50.31 Acute diastolic (congestive) heart failure; E87.2 Acidosis; R18.8 Other ascites; E66.2 Morbid (severe) obesity with alveolar hypoventilation; Z68.44 Body mass index [BMI] 60.0-69.9, adult; I11.0 Hypertensive heart disease with heart failure; K76.1 Chronic passive congestion of liver; M79.89 Other specified soft tissue disorders; L08.89 Other specified local infections of the skin and subcutaneous tissue; B37.2 Candidiasis of skin and nail; D75.1 Secondary polycythemia; E11.65 Type 2 diabetes mellitus with hyperglycemia; I87.2 Venous insufficiency (chronic) (peripheral); K58.0 Irritable bowel syndrome with diarrhea; F17.210 Nicotine dependence, cigarettes, uncomplicated; Z86.73 Personal history of transient ischemic attack (TIA), and cerebral infarction without residual deficits; Z86.718 Personal history of other venous thrombosis and embolism
CPT/HCPCS: 31500; 36415; 36600; 71045; 71275; 80048; 80053; 80307; 81001; 82550; 82553; 82803; 82962; 83036; 83735; 83880; 84100; 84443; 84484; 85025; 85027; 85610; 87070; 87086; 87205; 93005; 93010; 93306; 93970; 94002; 94003; 94640; 94660; 99281; 99291; 0241U; C9803; G0378; J1120; J1170; J1650; J1940; J2185; J2250; J2405; J2704; J3490; J7050; J7614; S0028